=== PATIENT | male | born 1935 | race Hispanic/Latino ===

== ENCOUNTER 2017-05-14 11:10 | Inpatient (IN) | payer MEDICARE, MEDICAID ==
[2017-05-14 11:51] VITALS: BMI 27.1
--- NOTE | 2017-05-14 16:11 | CP.PCM.HP ---
History of Present Illness - History of Present Illness History of Present Illness: 81 yo male with history of AFib, DM2, HTN and CHF was admitted at [facility] because of left sided weakness and left upper extremity tremor. CT scan of the head showed Acute Right Subdural Hematoma with mass effect and midline shift. Neurosurgical consult were made and patient was sent to OR for right frontal craniotomy and evacuation of hematoma. Patient was sent to [facility] Acute Rehab for continuation of therapy. Present on Admission - Present on Admission Any Indicators Present on Admission: No History of DVT/PE: No History of Uncontrolled Diabetes: No Urinary Catheter: No Decubitus Ulcer Present: No Review of Systems - Review of Systems All systems: reviewed and no additional remarkable complaints except (aside from those mentioned above, 12 point system review were negative by me) Past Patient History - Infectious Disease Hx of Infectious Diseases: None - Tetanus Immunizations Tetanus Immunization: Unknown - Past Social History Smoking Status: Never Smoked - CARDIAC Hx Congestive Heart Failure: Yes Hx Hypertension: Yes - PULMONARY Hx Chronic Obstructive Pulmonary Disease (COPD): Yes - NEUROLOGICAL Hx Neurological Disorder: No - HEENT Hx HEENT Problems: Yes Hx Cataracts: Yes Hx Glaucoma: Yes - RENAL Hx Chronic Kidney Disease: No - ENDOCRINE/METABOLIC Hx Diabetes Mellitus Type 1: Yes - HEMATOLOGICAL/ONCOLOGICAL Hx Blood Transfusions: Yes (ffp) Hx Blood Transfusion Reaction: No - INTEGUMENTARY Hx Dermatological Problems: No - MUSCULOSKELETAL/RHEUMATOLOGICAL Hx Falls: No - GASTROINTESTINAL Hx Gastrointestinal Disorders: Yes Hx Gastroesophageal Reflux: Yes - GENITOURINARY/GYNECOLOGICAL Other/Comment: prostate sx - PSYCHIATRIC Hx Substance Use: No - SURGICAL HISTORY Hx Surgeries: Yes - ANESTHESIA Hx Anesthesia Reactions: No Hx Malignant Hyperthermia: No Meds Allergies/Adverse Reactions: Allergies Allergy/AdvReac Type Severity Reaction Status Date / Time No Known Allergies Allergy Verified 05/14/17 14:25 Physical Exam - Constitutional Appears: No Acute Distress, Confused (disoriented to time and place) - Head Exam Head Exam: absent: NORMAL INSPECTION (dressing on right fronto-parietal region post cardiontomy) - Eye Exam Eye Exam: absent: Scleral icterus - ENT Exam ENT Exam: Mucous Membranes Moist - Neck Exam Neck exam: Negative for: Meningismus - Respiratory Exam Respiratory Exam: absent: Rales, Rhonchi, Wheezes, Respiratory Distress - Cardiovascular Exam Cardiovascular Exam: Irregular Rhythm - GI/Abdominal Exam GI & Abdominal Exam: Soft. absent: Tenderness - Rectal Exam Rectal Exam: Deferred - Extremities Exam Extremities exam: Negative for: calf tenderness, pedal edema - Back Exam Back exam: absent: NORMAL INSPECTION (sacral decubitus stage II) - Neurological Exam Neurological exam: Alert (awake but disoriented to time and place, appeared confused and slow to respond) - Psychiatric Exam Psychiatric exam: Flat Affect - Skin Skin Exam: Dry, Intact Assessment & Plan - Assessment and Plan (Free Text) Assessment: 81 yo male with history of AFib, DM2, HTN and CHF was admitted at [facility] because of left sided weakness and left upper extremity tremor. CT scan of the head showed Acute Right Subdural Hematoma with mass effect and midline shift. Neurosurgical consult were made and patient was sent to OR for right frontal craniotomy and evacuation of hematoma. Patient was sent to [facility] Acute Rehab for continuation of therapy. 1. Subdural Hematoma post craniotomy with hematoma evacuation, POD # 3 patient appeared confused and disoriented follow up neuro consult with Dr Jalloh follow up repeat CT scan of head 2. AFib rate controlled continue Digoxin 0.125mg PO daily 3. HTN BP stable continue Metoprolol 50mg PO BID BS elevated 4. DM2 continue Insulin Lispro Mix 75/25 20 unit SC ACHS
--- NOTE | 2017-05-14 16:28 | CT ---
PROCEDURE: CT HEAD WITHOUT CONTRAST. HISTORY: AMS COMPARISON: None available. TECHNIQUE: Axial computed tomography images were obtained through the head/brain without intravenous contrast. Radiation dose: Total exam DLP = 997.05 mGy-cm. This CT exam was performed using one or more of the following dose reduction techniques: Automated exposure control, adjustment of the mA and/or kV according to patient size, and/or use of iterative reconstruction technique. FINDINGS: PA seen to be status post right frontoparietal craniotomy with a mild amount of hemorrhagic products intermixed with CSF and gas at the right cerebral convexity extra-axial spaces relatively diffusely though minimal in overall volume. Mass effect effaces the right cerebral sulci moderately with only a minimal midline shift identified measuring approximately 4 mm. Hemorrhagic products are in varying ages of degradation and some are hyperdense are probably reflects subacute hemorrhagic elements given high oxygen tension within CSF. Trace acute hemorrhage is not excluded in the subdural space nevertheless. No intraparenchymal hematoma identified. Hemorrhagic products and CSF seen inferior to the right frontal lobe could reflect epidural rather than subdural hematoma. Otherwise, diffuse cerebral atrophy and trace chronic microangiopathy are identified with posterior fossa contents unremarkable. PARANASAL SINUSES: Unremarkable as visualized. No significant inflammatory changes. MASTOID AIR CELLS: Unremarkable as visualized. No inflammatory changes. OTHER FINDINGS: Trace gas seen related to the medial wall the right globe which is felt to be related to an ophthalmological band. IMPRESSION: Prior right frontoparietal craniotomy with mild right subdural hematoma and emphysema in appreciated throughout the right cerebral convexity extra-axial spaces. Minimal epidural hematoma may present inferior to the right frontal lobe. Minimal leftward midline shift exerted and moderate effacement of these for right cerebral sulci is identified as the only findings of mass effect. Age related neuro degenerative change are identified mildly. Continued clinical and CT follow-up are advised.
--- NOTE | 2017-05-14 17:38 | PCM.OPOC ---
Physiatry Overall Plan of Care - Overall Plan of Care Estimated Length of Stay in Weeks: 3 Rehab Impairment: Mobility, Gait, Cognition, Speech, Balance, Coordination Etiologic Diagnosis: Cerebrovascular Accident Rehab/Medical Prognosis: Guarded - Anticipated Interventions Physical Therapy:: Yes Occupational Therapy:: Yes Speech Therapy:: Yes Recreational Therapy:: Yes - Therapy Goals Bed Mobility: Contact Guard Ambulation: Minimal Assistance Functional Positional Changes:: Contact Guard - Discharge Plan Identification of Barriers to Discharge: Cognition Discharge Destination: Subacute
--- NOTE | 2017-05-14 17:41 | CP.PCM.CON ---
History of Present Illness - History of Present Illness History of Present Illness: Dr Bills PMR consultation on Wallace Ritter, born 1935 who has been admitted to [facility] for acute inpatient rehabilitation following an acute onset of left HP. Diagnosed with SDH and underwent evacuation. Post op left HP with significant ADL and mobility deficits and cognitive/speech=language deficits as well + duque cath past left TKR Review of Systems - Constitutional Constitutional: absent: Chills, Headache - EENT Eyes: absent: Blind Spots Ears: absent: Ear Pain Nose/Mouth/Throat: absent: Nasal Congestion - Cardiovascular Cardiovascular: absent: Chest Pain - Respiratory Respiratory: absent: Cough, Dyspnea, Hemoptysis - Gastrointestinal Gastrointestinal: absent: Belching - Musculoskeletal Musculoskeletal: absent: Back Pain - Integumentary Integumentary: Other (right sided scalp incision with erin). absent: Bleeding Lesions - Neurological Neurological: Abnormal Gait. absent: Abnormal Movements - Psychiatric Psychiatric: Confusion Past Patient History - Infectious Disease Hx of Infectious Diseases: None - Tetanus Immunizations Tetanus Immunization: Unknown - Past Social History Smoking Status: Never Smoked Alcohol: None Home Situation {Lives}: Alone - CARDIAC Hx Congestive Heart Failure: Yes Hx Hypertension: Yes - PULMONARY Hx Chronic Obstructive Pulmonary Disease (COPD): Yes - NEUROLOGICAL Hx Neurological Disorder: No - HEENT Hx HEENT Problems: Yes Hx Cataracts: Yes Hx Glaucoma: Yes - RENAL Hx Chronic Kidney Disease: No - ENDOCRINE/METABOLIC Hx Diabetes Mellitus Type 1: Yes - HEMATOLOGICAL/ONCOLOGICAL Hx Blood Transfusions: Yes (ffp) Hx Blood Transfusion Reaction: No - INTEGUMENTARY Hx Dermatological Problems: No - MUSCULOSKELETAL/RHEUMATOLOGICAL Hx Falls: No - GASTROINTESTINAL Hx Gastrointestinal Disorders: Yes Hx Gastroesophageal Reflux: Yes - GENITOURINARY/GYNECOLOGICAL Other/Comment: prostate sx - PSYCHIATRIC Hx Substance Use: No - SURGICAL HISTORY Hx Surgeries: Yes - ANESTHESIA Hx Anesthesia Reactions: No Hx Malignant Hyperthermia: No Meds Allergies/Adverse Reactions: Allergies Allergy/AdvReac Type Severity Reaction Status Date / Time No Known Allergies Allergy Verified 05/14/17 14:25 - Medications Medications: Current Medications Acetaminophen (Tylenol 325mg Tab) 650 mg PO Q4 PRN PRN Reason: Pain, Mild (1-3) Codeine Sulfate (Codeine) 30 mg PO Q4 [facility] Digoxin (Lanoxin) 0.125 mg PO 1400 [facility] Furosemide (Lasix) 40 mg PO DAILY [facility] Insulin Human Lispro (Humalog) 0 units SC ACHS [facility] PRN Reason: Protocol Metoprolol Tartrate (Lopressor) 50 mg PO BID [facility] Last Admin: 05/14/17 17:28 Dose: Not Given Oxybutynin Chloride (Ditropan Tab) 5 mg PO Q8 [facility] Pantoprazole Sodium (Protonix Ec Tab) 40 mg PO 0600 [facility] Pregabalin (Lyrica) 75 mg PO DAILY [facility] Tamsulosin HCl (Flomax) 0.4 mg PO DAILY [facility] Tramadol HCl (Ultram) 50 mg PO BID PRN PRN Reason: Pain, moderate (4-7) Physical Exam - Constitutional Appears: Non-toxic, No Acute Distress - Head Exam Head Exam: absent: ATRAUMATIC (right scalp incision with erin) - Eye Exam Eye Exam: EOMI - ENT Exam ENT Exam: Mucous Membranes Moist - Respiratory Exam Respiratory Exam: NORMAL BREATHING PATTERN - Cardiovascular Exam Cardiovascular Exam: REGULAR RHYTHM - GI/Abdominal Exam GI & Abdominal Exam: Distended. absent: Firm - Extremities Exam Extremities exam: Negative for: calf tenderness, joint swelling, pedal edema - Neurological Exam Neurological exam: Alert - Psychiatric Exam Psychiatric exam: Flat Affect - Skin Skin Exam: Warm (has a stage II sacral ulcer, butterflied 2x2 with some erythema and mild maceration) Results - Vital Signs Recent Vital Signs: Last Vital Signs Temp Pulse 70 05/14/17 14:40 Resp 20 05/14/17 14:40 BP 98/64 L 05/14/17 17:28 Pulse Ox 98 05/14/17 14:40 - Labs Labs: Laboratory Results - last 24 hr 05/14/17 16:36 POC Glucose (mg/dL) 166 H Assessment & Plan - Assessment and Plan (Free Text) Assessment: PT/OT to continue to help increase functional independence Team conference for d/c planning Pain: controlled Vascular: no evidence of DVT GI: No evidence of constipation or diarrhea Skin: Proshield to the sacral ulcer Patient is an excellent acute rehabilitation candidate and will have focused speech, PT, OT and recreational therapy to help facilitate a safe and appropriate d/c plan impairment code 01.1
[2017-05-14] MEDS: Insulin Lispro (humaLOG) 100 Units/ml Inj SC SCH ×2 (18:03→21:17)
[2017-05-14 18:24] LABS: ALB/GLOB RATIO 1.1 (1.0-2.1); ALBUMIN 3.9 g/dL (3.5-5.0); CALCIUM 9.5 mg/dL (8.4-10.2)
[2017-05-14] MEDS: Proshield Plus GEL TOP SCH (21:20)
[2017-05-15] MEDS: Proshield Plus GEL TOP SCH ×3 (06:07→21:29)
[2017-05-15] MEDS: Pantoprazole 40 mg EC Tab PO SCH (06:08)
[2017-05-15] MEDS: Insulin Lispro (humaLOG) 100 Units/ml Inj SC SCH ×4 (06:43→21:32)
[2017-05-15] MEDS: Digoxin 250 mcg (0.25 mg) Tab PO SCH (14:44)
[2017-05-15] MEDS ORDERED: Sodium Chloride 0.9% 1,000 ML IV SCH (18:00)
[2017-05-16] MEDS: Proshield Plus GEL TOP SCH (05:55)
[2017-05-16] MEDS: Pantoprazole 40 mg EC Tab PO SCH (05:55)
[2017-05-16] MEDS: Insulin Lispro (humaLOG) 100 Units/ml Inj SC SCH (06:59)
[2017-05-16] MEDS ORDERED: levETIRAcetam 1,000 MG in Sodium Chloride 0.9% 100 ML IVPB ONE (08:11)
--- NOTE | 2017-05-16 08:48 | CP.PCM.CON ---
History of Present Illness - History of Present Illness History of Present Illness: Mr. Ritter is a 81 yo male with history of AFib, DM2, HTN and CHF was admitted at [facility] because of left sided weakness and left upper extremity tremor. CT scan of the head showed Acute Right Subdural Hematoma with mass effect and midline shift. Neurosurgical consult were made and patient was sent to OR for right frontal craniotomy and evacuation of hematoma. He was send to [facility] acute rehab for continuous therapy. Upon arrival in the [facility] rehab, he had an episode of confusion and was not able to follow any commands. CT scan of the head did not show any new acute findings. CMP showed elevated BUN and creatinine level which IVF was given at nighttime and encourage increase PO intake of fluids. Yesterday was uneventful for the patient. This morning at around 7:40 am, the RN heard him sounding like he was choking, found patient to be having left arm tonic-clonic movement and left eye twitching lasting about 10 seconds. No loss of consciousness noted. Vital signs at that time was Bp- 124 /74, HR-87, SPO2-97%at room air, temp. 97.9.Blood sugar was 303 mg/dl. ICE [employer]ER was called. Pt. complained of left arm heaviness. Dr. Haley ordered repeat CT Scan of head. At present, his v/s 127/75, HR-90, SPO2-99% at room air. He denies any headache, dizziness, lightheadedness, blurred vision, diplopia. He was able to describe his left side of his twitching including his left eye. He is able to answer questions appropriately and follow commands. He is able to feed himself with minimal assistance. Review of Systems - Review of Systems All systems: reviewed and no additional remarkable complaints except Past Patient History - Infectious Disease Hx of Infectious Diseases: None - Tetanus Immunizations Tetanus Immunization: Unknown - Past Social History Smoking Status: Never Smoked Alcohol: None Home Situation {Lives}: Alone - CARDIAC Hx Congestive Heart Failure: Yes Hx Hypertension: Yes - PULMONARY Hx Chronic Obstructive Pulmonary Disease (COPD): Yes - NEUROLOGICAL Hx Neurological Disorder: No - HEENT Hx HEENT Problems: Yes Hx Cataracts: Yes Hx Glaucoma: Yes - RENAL Hx Chronic Kidney Disease: No - ENDOCRINE/METABOLIC Hx Diabetes Mellitus Type 1: Yes - HEMATOLOGICAL/ONCOLOGICAL Hx Blood Transfusions: Yes (ffp) Hx Blood Transfusion Reaction: No - INTEGUMENTARY Hx Dermatological Problems: No - MUSCULOSKELETAL/RHEUMATOLOGICAL Hx Falls: No - GASTROINTESTINAL Hx Gastrointestinal Disorders: Yes Hx Gastroesophageal Reflux: Yes - GENITOURINARY/GYNECOLOGICAL Other/Comment: prostate sx - PSYCHIATRIC Hx Substance Use: No - SURGICAL HISTORY Hx Surgeries: Yes - ANESTHESIA Hx Anesthesia Reactions: No Hx Malignant Hyperthermia: No Meds Allergies/Adverse Reactions: Allergies Allergy/AdvReac Type Severity Reaction Status Date / Time No Known Allergies Allergy Verified 05/14/17 14:25 - Medications Medications: Current Medications Acetaminophen (Tylenol 325mg Tab) 650 mg PO Q4 PRN PRN Reason: Pain, Mild (1-3) Digoxin (Lanoxin) 0.125 mg PO 1400 [facility] Last Admin: 05/15/17 14:44 Dose: 0.125 mg Dimethicone (Proshield Plus Skin Protectant) 1 applic TOP Q8 [facility] Last Admin: 05/16/17 05:55 Dose: 1 applic Furosemide (Lasix) 40 mg PO DAILY [facility] Insulin Human Lispro (Humalog) 0 units SC ACHS [facility] PRN Reason: Protocol Last Admin: 05/16/17 06:59 Dose: 4 units Levetiracetam (Keppra) 500 mg PO BID [facility] Levetiracetam (Keppra) 1,000 mg PO ONCE ONE Stop: 05/16/17 08:45 Metoprolol Tartrate (Lopressor) 50 mg PO BID@0900,2100 [facility] Last Admin: 05/16/17 08:39 Dose: 50 mg Multivitamins/Vitamin C (Poly Vi Fidelina Liq) 1 ml PO DAILY [facility] Oxybutynin Chloride (Ditropan Tab) 5 mg PO Q8 [facility] Last Admin: 05/16/17 05:55 Dose: 5 mg Pantoprazole Sodium (Protonix Ec Tab) 40 mg PO 0600 [facility] Last Admin: 05/16/17 05:55 Dose: 40 mg Pregabalin (Lyrica) 75 mg PO DAILY [facility] Last Admin: 05/16/17 08:43 Dose: 75 mg Tamsulosin HCl (Flomax) 0.4 mg PO HS [facility] Last Admin: 05/15/17 21:28 Dose: 0.4 mg Tramadol HCl (Ultram) 50 mg PO BID PRN PRN Reason: Pain scale 4-10 Physical Exam - Constitutional Appears: No Acute Distress - Head Exam Head Exam: NORMAL INSPECTION - Eye Exam Pupil Exam: PERRL - ENT Exam ENT Exam: Mucous Membranes Moist, Normal Exam - Neck Exam Neck exam: Positive for: Normal Inspection - Respiratory Exam Respiratory Exam: Clear to Auscultation Bilateral, NORMAL BREATHING PATTERN - Cardiovascular Exam Cardiovascular Exam: +S1, +S2 - GI/Abdominal Exam GI & Abdominal Exam: Normal Bowel Sounds, Soft. absent: Tenderness - Extremities Exam Extremities exam: Positive for: normal inspection - Neurological Exam Neurological exam: Alert, CN II-XII Intact, Oriented x3 - Expanded Neurological Exam Expanded Patient oriented to: person, place, time Cranial nerves: EOM's Intact: Normal, Facial Palsey w/Forehead Movement: Normal , Facial Palsey w/o Forehead Movement: Normal, Facial Sensation: Normal, Gag Reflex: Normal, Nystagmus: Normal, Tongue Deviation: Normal Ataxia: No Cerebellar Function: Finger to Nose: Abnormal Left, Abnormal Right (patient claims of arms feeling very heavy), Heel to Herrera: Abnormal Left Upper motor neuron: Pronator Drift: Abnormal Left, Sensory Extinction: Abnormal Left Sensory exam: Lower Extremity 2 Point Discrimination: Abnormal Left, Lower Extremity Light Touch: Abnormal Left, Lower Extremity Pin Prick: Abnormal Left, Lower Extremity Temperature: Abnormal Left, Upper Extremity 2 Point Discrimination: Abnormal Left, Upper Extremity Light Touch: Abnormal Left, Upper Extremity Pin Prick: Abnormal Left, Upper Extremity Temperature: Abnormal Left Neuro motor strength exam: Left Upper Extremity: 3, Right Upper Extremity: 4, Left Lower Extremity: 2/1, Right Lower Extremity: 4 Results - Vital Signs Recent Vital Signs: Last Vital Signs Temp 97.9 F 05/16/17 07:40 Pulse 90 05/16/17 08:39 Resp 20 05/16/17 07:48 BP 127/75 05/16/17 08:39 Pulse Ox 99 05/16/17 07:48 - Labs Result Diagrams: 05/14/17 17:45 Labs: Laboratory Results - last 24 hr 05/15/17 05/15/17 05/15/17 11:34 16:52 21:32 POC Glucose (mg/dL) 378 H 268 H 338 H 05/16/17 06:55 POC Glucose (mg/dL) 303 H Assessment & Plan (1) Subdural hematoma Assessment and Plan: 81 yo male with history of AFib, DM2, HTN and CHF was admitted at [facility] because of left sided weakness and left upper extremity tremor Case discussed with Dr. Sarmiento 1. acute rehab. 2. CT scan of head without contrast 3. PT, Ot eval and treat 4. Blood pressure and glycemic control Thank you Status: Acute (2) Seizures Assessment and Plan: 81 yo male with history of AFib, DM2, HTN and CHF was admitted at [facility] because of left sided weakness and left upper extremity tremor, with a new onset of seizures Case discussed with Dr. Sarmiento, recommend the following 1. CT scan of the head stat. 2. MRI of the brain without contrast 3. EEG to evaluate seizure 4. Keppra 1000 mg PO loading dose and 500 mg PO BID. 5. Ativan 2 mg IV Q 6 PRN for seizure activity Thank you Status: Acute
--- NOTE | 2017-05-16 08:52 | PCM.RRT ---
WIRELESS OPERATOR Nurse Assessment - Situation Location: rehab Room Number: 622 WIRELESS OPERATOR Reason for Call: Looks Sicker WIRELESS OPERATOR Called By: RN - IV IV Inserted during WIRELESS OPERATOR?: No - Respiratory Oxygen Delivery Method: Room Air Received Nebulizer Treatments: No Was the Patient Ventilated with Bag/Mask 100% O2?: No Secretions Suctioned?: No Was the Patient Intubated?: No Was the Patient Placed on a Ventilator?: No - Diagnostic Test Ordered EKG: No Chest X-Ray: No CT Scan: No CPR started during WIRELESS OPERATOR?: No - Vital Signs Vital Signs: Rapid Response Vital Sign Blood Pressure 124/74 Pulse Rate 74 Respiratory Rate 22 Temperature 97.5 F Oxygen Saturation 98 - Time WIRELESS OPERATOR Ended Time WIRELESS OPERATOR Ended: 07:45 - Vital Signs at end of WIRELESS OPERATOR Vital Signs at end of WIRELESS OPERATOR: Rapid Response End Vital Sign Blood Pressure 127/75 Pulse Rate 81 Respiratory Rate 20 Temperature 97.5 F O2 Sat by Pulse Oximetry 98 - Recommendations WIRELESS OPERATOR Level of Care Recommendations: Remain in current setting I.Reason for WIRELESS OPERATOR - A) Acute Change in Patient: Subjective: 81 yo M s/p evacuation of subdural hematoma had WIRELESS OPERATOR called due to witnessed focal seizure while in rehab. RN witnessed pt have tonic clonic seizure activity of left upper extremity and left eyelid. Activity lasted for less than 10 seconds and pt did not lose consciousness. Vitals at beginning of WIRELESS OPERATOR: BP 124/74, HR 87 SpO2 99 On arrival, pt was not having this activity anymore. Was alert and oriented to person, year, and knew he was in a hospital. EOMI. Stated that his left arm felt heavy- but after a few minutes was able to move it with more ease than at beginning of WIRELESS OPERATOR. Of note, mild left facial droop noted, but as per floor staff/pt's RN this is not a new finding, and is pt's baseline. Vitals at end of WIRELESS OPERATOR BP 125/75 HR 90 SpO2 99 Assessment: 81 yo M, s/p focal seizure. Plan: Non contrast CT Contact pt's neurologist- Dr. Jalloh/Dr. Sarmiento Patient seen and discussed with hospitalist Dr. Haley, who was present for the WIRELESS OPERATOR.
[2017-05-16] MEDS ORDERED: Poly vi sol LIQUID PO SCH (09:00)
--- NOTE | 2017-05-16 11:20 | CT ---
PROCEDURE: CT scan of the head without contrast HISTORY: r/o seizure Subdural hematoma with recent craniotomy COMPARISON: 05/14/2017. TECHNIQUE: CT scan of the head was performed without the use of intravenous contrast. Coronal and sagittal reformatted images were performed. Lower dose CT techniques including iterative reconstruction were performed. Total exam DLP = 975 mGy-cm. FINDINGS: There is once again evidence of prior right right frontoparietal craniotomy. No catheter is appreciated. Overlying erin are seen in the subcutaneous soft tissues with some mild overlying subcutaneous edema identified. Persistent areas of right frontal and frontal convexity extra-axial air are noted. There is a [id number] sized right subdural hematoma identified as seen on prior study. There is some mild linear areas of residual high density in the subdural collection consistent with residual blood products. Some of these appear to be layering posteriorly. This is causing localized mass effect as well as mild [id number] midline shift. The overall thickness of the subdural hematoma is mildly increased measuring up to 12 millimeters. There is additionally some confluent low density seen along the inferior right frontal lobe region. There also appears to be some low density in the left frontoparietal convexity not as well appreciated on prior study. No new intracranial hemorrhage or intraventricular hemorrhage is noted. Bony structures are stable. IMPRESSION: Status post right frontoparietal craniotomy. There appears to be the suggestion of some mild increase in thickness of the right frontoparietal subdural hematoma. This would include some mild areas of linear increased blood products from recent subdural hematoma. Persistent underlying cortical effacement and [id number] midline shift remain. This case was placed into the PA review folder and critical finding list.
--- NOTE | 2017-05-16 12:23 | CP.PCM.DIS ---
Provider - Provider Date of Admission: 05/14/17 14:25 Attending physician: Nabil Kwan MD Time Spent in preparation of Discharge (in minutes): 30 Diagnosis - Discharge Diagnosis (1) Seizures Status: Acute Hospital Course - Lab Results Lab Results: Most Recent Lab Values Sodium 136 mmol/l (132-148) 05/14/17 17:45 Potassium 4.2 MMOL/L (3.6-5.0) 05/14/17 17:45 Chloride 90 mmol/L (98-107) L 05/14/17 17:45 Carbon Dioxide 31 mmol/L (22-30) H 05/14/17 17:45 Anion Gap 19 (10-20) 05/14/17 17:45 BUN 41 mg/dl (9-20) H 05/14/17 17:45 Creatinine 2.1 mg/dl (0.8-1.5) H 05/14/17 17:45 Est GFR ( Amer) 37 05/14/17 17:45 Est GFR (Non-Af Amer) 30 05/14/17 17:45 POC Glucose (mg/dL) 303 mg/dL (65-110) H 05/16/17 06:55 Random Glucose 147 mg/dL (75-110) H 05/14/17 17:45 Calcium 9.5 mg/dL (8.4-10.2) 05/14/17 17:45 Total Bilirubin 0.8 mg/dl (0.2-1.3) 05/14/17 17:45 AST 62 U/L (17-59) H D 05/14/17 17:45 ALT 47 U/L (21-72) 05/14/17 17:45 Alkaline Phosphatase 108 U/L (38-126) 05/14/17 17:45 Total Protein 7.4 G/DL (6.3-8.2) 05/14/17 17:45 Albumin 3.9 g/dL (3.5-5.0) 05/14/17 17:45 Globulin 3.5 gm/dL (2.2-3.9) 05/14/17 17:45 Albumin/Globulin Ratio 1.1 (1.0-2.1) 05/14/17 17:45 - Hospital Course Hospital Course: 81 yo male with history of AFib, DM2, HTN and CHF was admitted at [facility] because of left sided weakness and left upper extremity tremor. CT scan of the head showed Acute Right Subdural Hematoma with mass effect and midline shift. Neurosurgical consult were made and patient was sent to OR for right frontal craniotomy and evacuation of hematoma. Patient was sent to [facility] Acute Rehab for continuation of therapy. While in acute rehab, patient had 2 episodes of focal seizures today. Patient was evaluated by Neuro team, and subsequently transferred to ICU for IV Keppra and close monitoring. Patient to be transferred to ED at this time. Discharge Exam - Head Exam Head Exam: NORMAL INSPECTION Additional comments: Vitals Reviewed GEN: WDWN, ALERT HEENT: NCAT, PERRL, EOMI HEART: RRR, +S1S2, NO MRG LUNG: CTAB, NO WRR ABD: SOFT, NT, ND, NO HSM, NO MASSES EXT: NORMAL PEDAL PULSES, GOOD CAPILLARY REFILL NEURO: awake, alert SKIN: WARM, DRY PSYCH: NORMAL MOOD, NORMAL AFFECT Discharge Plan - Follow Up Plan Condition: GOOD Disposition: Trans to Other Acute Care Hosp
[2017-05-17] MEDS ORDERED: Multivitamin With Minerals Tab PO SCH (09:00)
[2017-05-17] MEDS: Insulin Lispro (humaLOG) 100 Units/ml Inj SC SCH ×4 (15:09→21:43)
[2017-05-17] MEDS: Proshield Plus GEL TOP SCH ×3 (15:10→21:38)
[2017-05-17] MEDS: Digoxin 250 mcg (0.25 mg) Tab PO SCH ×2 (15:10→15:11)
[2017-05-17] MEDS: Pantoprazole 40 mg EC Tab PO SCH (15:11)
--- NOTE | 2017-05-17 18:27 | CP.PCM.PN ---
Subjective - Date & Time of Evaluation Date of Evaluation: 05/17/17 Time of Evaluation: 18:26 - Subjective Subjective: Patient seen in the room aware that had seizure activity stabilized now feels tired but able to converse no leg swelling will see how he does in therapy Objective - Vital Signs/Intake and Output Vital Signs (last 24 hours): Temp Pulse Resp BP Pulse Ox 96.3 F L 78 20 104/60 99 05/17/17 14:49 05/17/17 14:49 05/17/17 14:49 05/17/17 14:49 05/17/17 14:49 - Medications Medications: Current Medications Codeine Sulfate (Codeine) 30 mg PO Q4 [facility] Digoxin (Digoxin) 0.25 mg PO DAILY@1400 [facility] Dimethicone (Proshield Plus Skin Protectant) 1 applic TOP Q8 [facility] Last Admin: 05/17/17 15:11 Dose: Not Given Furosemide (Lasix) 40 mg PO DAILY [facility] Insulin Human Lispro (Humalog) 0 units SC ACHS [facility] PRN Reason: Protocol Last Admin: 05/17/17 16:54 Dose: 6 units Levetiracetam (Keppra) 500 mg PO Q12 [facility] Metoprolol Tartrate (Lopressor) 50 mg PO Q12 [facility] Oxybutynin Chloride (Ditropan Tab) 5 mg PO Q8 [facility] Last Admin: 05/17/17 15:12 Dose: Not Given Pregabalin (Lyrica) 75 mg PO DAILY [facility] Last Admin: 05/17/17 15:12 Dose: Not Given Tamsulosin HCl (Flomax) 0.4 mg PO HS [facility] Last Admin: 05/17/17 15:09 Dose: Not Given Tramadol HCl (Ultram) 50 mg PO BID PRN PRN Reason: Pain scale 4-10 - Labs Labs: 05/14/17 17:45
[2017-05-18] MEDS: Proshield Plus GEL TOP SCH ×3 (06:15→21:48)
[2017-05-18] MEDS: Insulin Lispro (humaLOG) 100 Units/ml Inj SC SCH ×4 (06:39→21:37)
--- NOTE | 2017-05-18 13:24 | PSY.TMCNF ---
Nursing - Vital Signs Vital Signs (Last 8 hours): Vital Signs 05/18/17 05/18/17 05/18/17 08:00 09:03 10:00 Temperature 97.2 F L Pulse Rate 108 H 100 H 100 H Respiratory 18 Rate Blood Pressure 94/55 L 102/60 102/60 O2 Sat by Pulse 97 Oximetry Pain: 0 - Medications/Other Issues Comment: Pt is at high nutritional risk. Goals: 1: Consume >75% of meals. 2: Maintain weight within 2-3 lbs. of current body weight. Follow-up assessment due by 05/23/2017. - Bladder Management Bladder Pattern: Retention Voiding Method: Indwelling Catheter - Patient/Family Teaching Comments: N/A - Goals/Time Frame Comments: Pt was seen awake and alert following PT session. Pt agreeable to evaluation. Pt was able to identify the month and year following verbal cues. Pt was able to identify minimal leisure interests and required verbal cues for choices of leisure options. Pt's responses may not be accurate 2' pt repeating responses for previous questions or did not respond. Pt reported he lives in [place] and presents with L UE and LE weakness. Pt reported no headache during time of session. Pt participated in connect four task and modified courtnye card task. Pt required max verbal cues for direction following, command following, error recognition, and attention to task. Pt returned to room. Physical Therapy - Bed Mobility Bed Mobility: Contact Guard, Minimal Assistance - Transfers Wheelchair to Mat: Contact Guard, Minimal Assistance Sit to Stand: Verbal Cues, Contact Guard, Minimal Assistance - Ambulation Level of Assistance: Minimal Assistance, Moderate Assistance Distance (ft.): 65 Assistive Devices: Rolling Walker Orthoses: n/a Comment: RW, VCs, forwARD FLEXION, impaired upright posture, impaired safety, rapid step with RLE with impaired LLE weight bearing; impaired tolerance to task with some SOB. -impaired safety with wide base of support and limited flexion during swing on RLE or LLE; limited knee motion noted on LLE during gait. -continued VCs for hip extension and upright gaze - Stair Negotiation Stairs: Level of Assistance: Not Tested - Standing Balance Static Stand: Minimal Assistance Dynamic Stand: Moderate Assistance - Pain Pain (assessed during therapy session): 5 Management Techniques: Medication Comment: LLE at times - Insight/Carryover Insight/Carryover: Fair - Patient/Family Education Comment: -safety, therapy schedule, therapy goals, POC, use of call higgins, WC mobility - Assessment/Plan Assessment: Wallace Ritter presents with moderate cognitive-linguistic deficits characterized by impaired short-term memory, problem solving and safety , thouhgt organization, word retrieval, and intermittently impaired attention with delayed responses overall. Pt would benefit from ST 3-5x/week for improved cognition. - Goals Timeframe: 2 weeks Goals: Min A LB self care. mod I transfers, mobility. independent ub self care. mod I toileting tasks - Provider License Number: [id number] Occupational Therapy - Arousal/Attention/Orientation Patient Orientation: Person - ADL/IADL Self Feeding: Set-up Help Grooming: Verbal Cues, Set-up Help Dressing-Upper Extremity: Moderate Assistance Dressing-Lower Extremity: Maximum Assistance Comment: +duque catheter - Sitting Balance Static Sitting: Supervision Dynamic Sitting: Contact Guard Assist - Transfers Wheelchair to Bed Transfers: Minimal Assistance Toilet Transfers: Moderate Assistance Comment: tub transfer tba - Upper Extremity Status Right Upper Extremity Comment: AROM R shoulder flexion approx 90 degrees Left Upper Extremity Comment: pain with movement L shoulder. AROM 60 degrees - Pain Pain (assessed during therapy session): 5 Alleviating Techniques: Medication Comment: LLE at times - Insight/Carryover Insight/Carryover: Fair - Patient/Family Education Comment: -safety, therapy schedule, therapy goals, POC, use of call higgins, WC mobility - Assessment/Plan Assessment: Wallace Ritter presents with moderate cognitive-linguistic deficits characterized by impaired short-term memory, problem solving and safety , thouhgt organization, word retrieval, and intermittently impaired attention with delayed responses overall. Pt would benefit from ST 3-5x/week for improved cognition. - Goals Timeframe: 2 weeks Goals: Min A LB self care. mod I transfers, mobility. independent ub self care. mod I toileting tasks - Provider Therapist: CELESTINO Candelario/Mansi License Number: [id number] Speech Therapy - Consult Information Patient on Program: Yes Medical Diagnosis: R subdural hematoma s/p R frontal craniotomy and evacuation Treatment Diagnosis: moderate cognitive deficits - Assessment Problem Solving Impairment: Moderate Memory Impairment: Moderate - Plan Assessment: Wallace Ritter presents with moderate cognitive-linguistic deficits characterized by impaired short-term memory, problem solving and safety , thouhgt organization, word retrieval, and intermittently impaired attention with delayed responses overall. Pt would benefit from ST 3-5x/week for improved cognition. Plan: Continue Speech/Language Therapy Frequency: 3-5 times per week Duration: 1 week Goals/Timeframe: Please see IE completed 05/18/17 for goals/POC Recommendations: ST 3-5x/week for improved cognition - Provider Therapist: Tana Adhikari License Number: [id number] Recreational Therapy - Participation Participation: Participates in Individual and/or Group Sessions - Attendance Attendance: 3-5 times per week - Activities Leisure Activities: Cards and Games - Socialization Level of Socialization: Initiates/interacts freely with care givers and peer - Assessment Assessment/Plan: Wallace Ritter presents with moderate cognitive- linguistic deficits characterized by impaired short-term memory, problem solving and safety, thouhgt organization, word retrieval, and intermittently impaired attention with delayed responses overall. Pt would benefit from ST 3-5x /week for improved cognition. - Provider Therapist: Emy Cormier, [facility] [employer] [id number] Nutrition - Current Diet Current Diet/ Supplement/ Feedings: Heart healthy, moderate consistent CHO, soft diet - Appetite Percent Meal Consumed: 75-100% - Comments Comments: N/A - Assessment/Goals/Time Frame Assessment/Goals/Time Frame: Pt is at high nutritional risk. Goals: 1: Consume >75% of meals. 2: Maintain weight within 2-3 lbs. of current body weight. Follow-up assessment due by 05/23/2017. - Provider Provider: Roselyn Seay MS, RD Case Management - Discharge Plan Discharge Plan: Subacute care Rehabilitation Plan - Treatment Plan Treatment Plan: Physical Therapy, Occupational Therapy, Speech, Dietary, Wound Care, Patient/Family Education - Discharge Plan Discharge to: Subacute
--- NOTE | 2017-05-18 13:44 | CP.PCM.PN ---
Subjective - Date & Time of Evaluation Date of Evaluation: 05/18/17 Time of Evaluation: 13:42 - Subjective Subjective: Patient seen in the room he was appropriately interactive has good insight NAD discussed discharge plans and he is aware of his limitations and need for further therapy and that he cannot go home denies YOU or dizziness had a reduced BP and urinary retention duque placed Objective - Vital Signs/Intake and Output Vital Signs (last 24 hours): Temp Pulse Resp BP Pulse Ox 97.2 F L 100 H 18 103/66 97 05/18/17 08:00 05/18/17 10:00 05/18/17 08:00 05/18/17 13:23 05/18/17 08:00 Intake and Output: 05/18/17 05/18/17 06:59 18:59 Intake Total 750 Output Total 0 Balance -1300 - Medications Medications: Current Medications Codeine Sulfate (Codeine) 30 mg PO Q4 [facility] Last Admin: 05/18/17 08:00 Dose: Not Given Digoxin (Lanoxin) 0.25 mg PO DAILY@1400 [facility] Dimethicone (Proshield Plus Skin Protectant) 1 applic TOP Q8 [facility] Last Admin: 05/18/17 13:22 Dose: 1 applic Furosemide (Lasix) 40 mg PO DAILY [facility] Last Admin: 05/18/17 13:23 Dose: 40 mg Insulin Human Lispro (Humalog) 0 units SC [facility] PRN Reason: Protocol Last Admin: 05/18/17 12:22 Dose: 4 units Insulin Lispro Protam/Lispro Human (Humalog Mix 75/25) 15 units SC [facility] Levetiracetam (Keppra) 500 mg PO Q12 [facility] Last Admin: 05/18/17 08:44 Dose: 500 mg Metoprolol Tartrate (Lopressor) 50 mg PO Q12 [facility] Last Admin: 05/18/17 09:03 Dose: 50 mg Oxybutynin Chloride (Ditropan Tab) 5 mg PO Q8 [facility] Last Admin: 05/18/17 06:15 Dose: 5 mg Pregabalin (Lyrica) 75 mg PO DAILY [facility] Last Admin: 05/17/17 15:12 Dose: Not Given Tamsulosin HCl (Flomax) 0.4 mg PO HS [facility] Last Admin: 05/17/17 21:13 Dose: Not Given Tramadol HCl (Ultram) 50 mg PO BID PRN PRN Reason: Pain scale 4-10 - Labs Labs: 05/14/17 17:45
[2017-05-18] MEDS: Digoxin 250 mcg (0.25 mg) Tab PO SCH (15:12)
[2017-05-18] MEDS: Insulin Lispro Mix 75/25 100 units/ml (HumaLog) 10ml SC SCH ×2 (19:00→21:36)
[2017-05-19] MEDS: Proshield Plus GEL TOP SCH ×3 (06:18→21:20)
[2017-05-19] MEDS: Insulin Lispro (humaLOG) 100 Units/ml Inj SC SCH ×4 (07:39→21:01)
[2017-05-19] MEDS: Insulin Lispro Mix 75/25 100 units/ml (HumaLog) 10ml SC SCH ×2 (08:05→12:35)
[2017-05-19] MEDS: Digoxin 250 mcg (0.25 mg) Tab PO SCH (13:19)
[2017-05-19] MEDS ORDERED: Insulin Lispro Mix 75/25 100 units/ml (HumaLog) 10ml SC SCH ×2 (13:55→16:30)
--- NOTE | 2017-05-19 13:59 | CP.PCM.PN ---
Subjective - Date & Time of Evaluation Date of Evaluation: 05/19/17 Time of Evaluation: 13:00 - Subjective Subjective: Patient seen and examined. Still confused but able to follow direction. Objective - Vital Signs/Intake and Output Vital Signs (last 24 hours): Temp Pulse Resp BP Pulse Ox 97.3 F L 103 H 19 106/60 96 05/19/17 08:29 05/19/17 12:48 05/19/17 08:29 05/19/17 13:20 05/19/17 08:29 Intake and Output: 05/19/17 05/19/17 06:59 18:59 Intake Total 450 Output Total 1400 Balance -950 - Medications Medications: Current Medications Codeine Sulfate (Codeine) 30 mg PO Q4H PRN PRN Reason: Pain, severe (8-10) Digoxin (Lanoxin) 0.25 mg PO DAILY@1400 [facility] Last Admin: 05/19/17 13:19 Dose: 0.25 mg Dimethicone (Proshield Plus Skin Protectant) 1 applic TOP Q8 [facility] Last Admin: 05/19/17 13:21 Dose: 1 applic Furosemide (Lasix) 20 mg PO DAILY [facility] Insulin Human Lispro (Humalog) 0 units SC [facility] PRN Reason: Protocol Last Admin: 05/19/17 12:34 Dose: 5 units Insulin Lispro Protam/Lispro Human (Humalog Mix 75/25) 20 units SC [facility] Levetiracetam (Keppra) 750 mg PO BID [facility] Last Admin: 05/19/17 09:14 Dose: 750 mg Metoprolol Tartrate (Lopressor) 50 mg PO Q12 [facility] Last Admin: 05/19/17 08:43 Dose: Not Given Pregabalin (Lyrica) 75 mg PO 2200 [facility] Last Admin: 05/18/17 21:44 Dose: 75 mg Tamsulosin HCl (Flomax) 0.4 mg PO HS [facility] Last Admin: 05/18/17 21:35 Dose: 0.4 mg Tramadol HCl (Ultram) 50 mg PO BID PRN PRN Reason: Pain, moderate (4-7) - Labs Labs: 05/14/17 17:45 - Constitutional Appears: No Acute Distress, Confused - Head Exam Head Exam: ATRAUMATIC - Eye Exam Eye Exam: absent: Scleral icterus - ENT Exam ENT Exam: Mucous Membranes Moist - Neck Exam Neck Exam: absent: Meningismus - Respiratory Exam Respiratory Exam: absent: Rales, Rhonchi, Wheezes, Respiratory Distress - Cardiovascular Exam Cardiovascular Exam: REGULAR RHYTHM, +S1, +S2 - GI/Abdominal Exam GI & Abdominal Exam: Soft. absent: Tenderness - Rectal Exam Rectal Exam: Deferred - Extremities Exam Extremities Exam: absent: Pedal Edema - Neurological Exam Neurological Exam: Altered - Psychiatric Exam Psychiatric exam: Flat Affect - Skin Skin Exam: Dry, Intact Assessment and Plan - Assessment and Plan (Free Text) Assessment: 81 yo male with history of AFib, DM2 and HTN was admitted at [facility] because of left sided weakness and left upper extremity tremor. CT scan of the head showed Acute Right Subdural Hematoma with mass effect and midline shift. Neurosurgical consult were made and patient was sent to OR for right frontal craniotomy and evacuation of hematoma. Patient was sent to [facility] Acute [facility]hab for continuation of therapy. 1. Subdural Hematoma post craniotomy with hematoma evacuation still confused and disoriented (not sure about baseline mental status) follow up neuro consult with Dr Jalloh follow up repeat CT scan of head 2. AFib rate controlled continue Digoxin and Metoprolol 3. HTN BP stable but on the low side continue Metoprolol 50mg PO BID history reviewed and no indication patient had CHF in the past. Aside from cardiomegaly there was no sign of pulmonary congestion in the past and ECHO consistently has normal LV function and EF. DC Lasix 4. DM2 BS uncontrolled increase Insulin Lispro Mix 75/25 20 unit SC ACHS HgA1C: 9.9 BMP in am endocrinology consult with Dr Peterson 5. BPH continue Flomax 0.4mg PO daily [facility] Oxybutinin
--- NOTE | 2017-05-19 16:41 | CP.PCM.PN ---
Subjective - Date & Time of Evaluation Date of Evaluation: 05/19/17 Time of Evaluation: 16:39 - Subjective Subjective: Patient seen in the room more lethargic today PT also noticed this as well Will have neurology follow up he had been much more of a conversationalist yesterday not able to follow more than a couple of sentences Possible CT or other imaging Objective - Vital Signs/Intake and Output Vital Signs (last 24 hours): Temp Pulse Resp BP Pulse Ox 97.3 F L 98 H 19 90/54 L 96 05/19/17 08:29 05/19/17 16:07 05/19/17 08:29 05/19/17 16:07 05/19/17 08:29 Intake and Output: 05/19/17 05/19/17 06:59 18:59 Intake Total 450 Output Total 1400 Balance -950 - Medications Medications: Current Medications Codeine Sulfate (Codeine) 30 mg PO Q4H PRN PRN Reason: Pain, severe (8-10) Digoxin (Lanoxin) 0.25 mg PO DAILY@1400 [facility] Last Admin: 05/19/17 13:19 Dose: 0.25 mg Dimethicone (Proshield Plus Skin Protectant) 1 applic TOP Q8 [facility] Last Admin: 05/19/17 13:21 Dose: 1 applic Insulin Human Lispro (Humalog) 0 units SC ACHS [facility] PRN Reason: Protocol Insulin Lispro Protam/Lispro Human (Humalog Mix 75/25) 24 units SC [facility]CD [facility] Insulin Lispro Protam/Lispro Human (Humalog Mix 75/25) 30 units SC [facility] Levetiracetam (Keppra) 750 mg PO BID [facility] Last Admin: 05/19/17 09:14 Dose: 750 mg Metoprolol Tartrate (Lopressor) 50 mg PO Q12 [facility] Last Admin: 05/19/17 08:43 Dose: Not Given Pregabalin (Lyrica) 75 mg PO 2200 [facility] Last Admin: 05/18/17 21:44 Dose: 75 mg Tamsulosin HCl (Flomax) 0.4 mg PO HS [facility] Last Admin: 05/18/17 21:35 Dose: 0.4 mg Tramadol HCl (Ultram) 50 mg PO BID PRN PRN Reason: Pain, moderate (4-7) - Labs Labs: 05/14/17 17:45
[2017-05-19 18:02] LABS: HEMOGLOBIN 11.9 g/dL (12.0-18.0); MEAN CELL VOLUME 86.8 fl (80.0-94.0); MEAN CORPUSCULAR HEMOGLOBIN 29.3 pg (27.0-31.0); MEAN CORPUSCULAR HGB CONC 33.7 g/dL (33.0-37.0); RBC 4.06 Mil/uL (4.40-5.90); RED CELL DISTRIBUTION WIDTH 16.2 % (11.5-14.5); WHITE BLOOD COUNT 18.4 K/uL (4.8-10.8)
[2017-05-19 18:16] LABS: CALCIUM 9.3 mg/dL (8.4-10.2)
--- NOTE | 2017-05-19 18:37 | CT ---
PROCEDURE: CT HEAD WITHOUT CONTRAST. HISTORY: increased lethargy COMPARISON: Unenhanced head CT 05/16/2017. TECHNIQUE: Axial computed tomography images were obtained through the head/brain without intravenous contrast. Radiation dose: Total exam DLP = 1471.80 mGy-cm. This CT exam was performed using one or more of the following dose reduction techniques: Automated exposure control, adjustment of the mA and/or kV according to patient size, and/or use of iterative reconstruction technique. FINDINGS: HEMORRHAGE: Prior right frontoparietal craniotomy reiterated as well as limited subdural hematoma and emphysema, diminishing in overall volume in the interval with residual hyperdense hemorrhagic elements remaining. Overall volume measures a maximal diameter of 11 mm at the superolateral right cerebral convexity with a leftward midline shift further reduced only 1-2 mm at this time. No interval new hemorrhage is appreciated definitively with subdural or epidural collection at the right frontal region again evident inferiorly. BRAIN: A chronic lacune in the right optic radiations is again appreciated with diffuse cerebral atrophy reiterated. Posterior fossa contents are stable. VENTRICLES: Unremarkable. No hydrocephalus. CALVARIUM: Unremarkable. PARANASAL SINUSES: Unremarkable as visualized. No significant inflammatory changes. MASTOID AIR CELLS: Unremarkable as visualized. No inflammatory changes. OTHER FINDINGS: None. IMPRESSION: Diminishing right convexity subdural hematoma with limited mass effect again evident. Leftward midline shift is further reduced now only 1-2 mm with no definite intracranial hemorrhage appearing acute at this time. Prior right frontal parietal craniotomy again evident. Chronic lacune again noted at the right optic radiations. Continued clinical and CT monitoring are recommended.
[2017-05-19] MEDS: Sodium Chloride 0.9% 1,000 ML IV SCH (19:46)
[2017-05-19 19:54] LABS: BASO # 0.1 K/uL (0.0-0.2); BASO % 0.4 % (0.0-2.0); EOS % 0.1 % (0.0-4.0); HEMOGLOBIN 11.5 g/dL (12.0-18.0); LYMPH # 1.2 K/uL (1.0-4.3); LYMPH % 6.9 % (20.0-40.0); MEAN CELL VOLUME 87.2 fl (80.0-94.0); MEAN CORPUSCULAR HEMOGLOBIN 28.8 pg (27.0-31.0); MEAN PLATELET VOLUME 6.9 fl (7.2-11.7); MONO # 1.1 K/uL (0.0-0.8); MONO % 6.5 % (0.0-10.0); NEUT # 15.1 K/uL (1.8-7.0); NEUT % 86.1 % (50.0-75.0); PLATELET COUNT 641 K/uL (130-400); WHITE BLOOD COUNT 17.5 K/uL (4.8-10.8)
[2017-05-19 20:35] LABS: BANDS 3 % (0-2); LYMPHOCYTE 8 % (20-50); MONOCYTE 4 % (0-10); NEUTROPHIL 85 % (42-75); TOTAL CELLS COUNTED 100
[2017-05-19 20:36] LABS: PLATELET ESTIMATE INCREASED (NORMAL)
[2017-05-19 20:37] LABS: ANISOCYTOSIS SLIGHT; HYPOCHROMIC SLIGHT; LARGE PLATELETS PRESENT; POIKILOCYTOSIS SLIGHT
[2017-05-19 20:53] LABS: URINE BACTERIA MANY (<OCC); URINE BILIRUBIN NEGATIVE (NEGATIVE); URINE BLOOD SMALL (NEGATIVE); URINE CLARITY CLOUDY (Clear); URINE COLOR YELLOW (YELLOW); URINE GLUCOSE (UA) >=500 mg/dL (Normal); URINE LEUKOCYTE ESTERASE LARGE Leu/uL (Negative); URINE PROTEIN 30 mg/dL (NEGATIVE); URINE UROBILINOGEN 0.2-1.0 mg/dL (0.2-1.0); WBC CLUMPS FEW /hpf
--- NOTE | 2017-05-19 21:11 | CON ---
ENDOCRINOLOGY CONSULT DATE: LOCATION: In room 624 HISTORY OF PRESENT ILLNESS: This is an 81-year-old male with recent uncontrolled type 2 insulin-requiring diabetes who presenting here to the acute rehabilitation unit following a right craniotomy and is being referred now for diabetic evaluation because of persistent hyperglycemic accelerations despite insulin dose adjustments undertaken thereof. PAST MEDICAL HISTORY: As mentioned above, history of type 2 insulin-requiring diabetes, currently on a premixed insulin regimen with Humalog 75/25 given as 20 units b.i.d. before meals and at bedtime, history of hypertensive cardiovascular disease and dyslipidemia, history of diabetic retinopathy, polyneuropathy, and nephropathy. He also has underlying coronary artery disease with previous admissions for congestive heart failure. He also has chronic obstructive lung disease as noted. He had a previous left total knee replacement as noted and moreover he had a previous admission to [facility] and presented there with a right subdural hematoma with left hemipareses and underwent a right craniotomy with evacuation of the hematoma as noted thereof and has been transferred here to [facility] for acute rehabilitation therapy. PAST SURGICAL HISTORY: Also the prior prostate surgery, the exact details are not known at this time. FAMILY HISTORY: Positive for hypertension and heart disease. SOCIAL HISTORY: The patient lives alone, has a supportive family otherwise, and no known substance use. REVIEW OF SYSTEMS: As mentioned above, admits to generalized body weakness with episodic dizziness and lightheadedness, worse in the previous admission to [facility]. His sleep patterns are disrupted, but otherwise has improved accordingly. He has episodic bouts of confusion and disorientation, but otherwise is cooperative with his physical and occupational therapy as given. No chest pains or palpitations or PND. His oral intake is variable and needs feeding assistance as per the nursing staff. No alterations of bowel or urinary patterns. PHYSICAL EXAMINATION: GENERAL: This is an average-built male in no apparent distress. VITAL SIGNS: Blood pressure of 144/80, pulse of 80 beats per minute and regular, temperature 98, respirations 20, height is 6 feet, and weight is 200 pounds. HEENT: Head is normocephalic. Eyes are anicteric with pink conjunctivae. Funduscopy not possible at this time. Ears, nose, and throat otherwise normal. NECK: Supple. Thyroid gland is normal in size. No carotid bruits or any cervical adenopathy. CARDIOPULMONARY: Some adynamic precordium. S1 and S2 is rapid and regular. LUNGS: Clear to auscultation. ABDOMEN: Flat and soft with positive bowel sounds. EXTREMITIES: No peripheral edema. Pulses are +2 bilaterally. LABORATORY DATA: Chemistry showed a BUN of 41, sodium 136, potassium 4.2, chloride 90, CO2 of 31, glucose 147, and creatinine 2.1. His hemoglobin A1c is 9.9%, which is quite elevated and indicative of suboptimal metabolic control of his diabetic condition. His glucose levels are fluctuating, ranging from 255 to 377 and 408 mg/dL. ASSESSMENT AND PLAN: This is an 81-year-old male with uncontrolled and decompensated type 2 insulin-requiring diabetes presenting here with marked hyperglycemic accelerations clearly related to a subtherapeutic insulin regimen and is now being referred for diabetic evaluation and management. He underwent a recent right craniotomy for evacuation of a right subdural hematoma and has residual left hemiparesis, undergoing acute rehabilitation therapy here at [facility]. He also has diabetic microvascular complications of retinopathy with impaired visual acuity and diabetic polyneuropathy and nephropathy with advanced azotemia as noted thereof. He also has diabetic macrovascular complications of coronary artery disease on previous admissions for congestive heart failure and peripheral arterial disease and vasculopathy. Plan of management as discussed with the staff. We will modify his current insulin regimen and change his premixed insulin regimen to just b.i.d. dosing instead of four times daily dosing as ordered. We will change the Humalog 75/25 to 30 units a.c. breakfast and 24 units a.c. dinner to start tonight. We will also add basal insulin given as Levemir at 10 units subcutaneously at bedtime daily to start tonight. We will modify the coverage scale to obviate hypoglycemia and detailed orders have been given. We will obtain serial chemistries and supplement accordingly as needed. We will also obtain baseline thyroid studies and also vitamin D level as ordered. We will follow and advise accordingly. Bianka Peterson MD
[2017-05-19] MEDS ORDERED: Insulin Detemir 100 Units/ml Inj SC SCH (22:00)
[2017-05-20] MEDS: Proshield Plus GEL TOP SCH ×3 (05:56→21:30)
[2017-05-20] MEDS: Sodium Chloride 0.9% 1,000 ML IV SCH ×2 (05:56→14:04)
[2017-05-20 06:17] LABS: BASO # 0.2 K/uL (0.0-0.2); EOS # 0.3 K/uL (0.0-0.7); EOS % 1.9 % (0.0-4.0); HEMOGLOBIN 12.2 g/dL (12.0-18.0); LYMPH # 1.5 K/uL (1.0-4.3); LYMPH % 9.4 % (20.0-40.0); MEAN CELL VOLUME 87.8 fl (80.0-94.0); MEAN CORPUSCULAR HEMOGLOBIN 29.1 pg (27.0-31.0); MEAN CORPUSCULAR HGB CONC 33.1 g/dL (33.0-37.0); MEAN PLATELET VOLUME 6.8 fl (7.2-11.7); MONO # 1.2 K/uL (0.0-0.8); MONO % 7.6 % (0.0-10.0); NEUT # 12.8 K/uL (1.8-7.0); NEUT % 80.1 % (50.0-75.0); NRBC % 0.1 % (0.0-0.0); RBC 4.21 Mil/uL (4.40-5.90); RED CELL DISTRIBUTION WIDTH 16.1 % (11.5-14.5)
[2017-05-20 06:28] LABS: ALB/GLOB RATIO 0.9 (1.0-2.1); ALBUMIN 3.5 g/dL (3.5-5.0); CALCIUM 9.2 mg/dL (8.4-10.2)
[2017-05-20] MEDS: Insulin Lispro (humaLOG) 100 Units/ml Inj SC SCH ×4 (07:27→21:31)
[2017-05-20] MEDS ORDERED: Insulin Lispro Mix 75/25 100 units/ml (HumaLog) 10ml SC SCH (07:30)
--- NOTE | 2017-05-20 08:26 | RAD ---
HISTORY: leukocytosis COMPARISON: No prior. FINDINGS: LUNGS: No consolidation. Shallow lung volumes. Central pulmonary vasculature and interstitial lung markings appear borderline prominent possibly technical -prior all pneumonitis and/or minimal central pulmonary venous congestion/interstitial pulmonary edema-considerations. PLEURA: No significant pleural effusion identified, no pneumothorax apparent. CARDIOVASCULAR: Probably normal given technique OSSEOUS STRUCTURES: Thoracic spondylosis. Bilateral shoulder arthrosis. Cervical apophyseal joint arthrosis VISUALIZED UPPER ABDOMEN: Normal. OTHER FINDINGS: None. IMPRESSION: Possible minimal central pulmonary venous congestion. Possible diffuse interstitial pneumonitis. No consolidative infiltrate. No atelectasis
--- NOTE | 2017-05-20 10:35 | CP.PCM.PN ---
Subjective - Date & Time of Evaluation Date of Evaluation: 05/20/17 Time of Evaluation: 10:31 - Subjective Subjective: Mr. Ritter was seen and examined at the bedside. He is awake with episode of confusion. He is unable to state place, person or time which is a decline from previous examination. He moves all extremities, but weak. He is unable to follow any commands. CT scan of the head done 05/19/2017 showed diminishing right convexity subdural hematoma. with limited mass effect. Leftward midline shift is further reduced now only 1-2 mm with no definite intracranial hemorrhage acute at this time. Prior right frontal parietal craniotomy again is evident. 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 UA was done with result showed large number of leukocyte esterase and high bacteria. His WBC is also elevated. There was no untoward events overnight. Objective - Vital Signs/Intake and Output Vital Signs (last 24 hours): Temp Pulse Resp BP Pulse Ox 97.0 F L 96 H 22 96/60 L 96 05/20/17 08:15 05/20/17 08:31 05/20/17 08:15 05/20/17 08:31 05/20/17 08:15 Intake and Output: 05/20/17 05/20/17 06:59 18:59 Intake Total 1600 Output Total 1200 Balance 400 - Medications Medications: Current Medications Codeine Sulfate (Codeine) 30 mg PO Q4H PRN PRN Reason: Pain, severe (8-10) Digoxin (Lanoxin) 0.25 mg PO DAILY@1400 [facility] Last Admin: 05/19/17 13:19 Dose: 0.25 mg Dimethicone (Proshield Plus Skin Protectant) 1 applic TOP Q8 [facility] Last Admin: 05/20/17 05:56 Dose: 1 applic Sodium Chloride (Sodium Chloride 0.9%) 1,000 mls @ 100 mls/hr IV .Q10H [facility] Stop: 05/20/17 18:58 Last Admin: 05/20/17 05:56 Dose: 100 mls/hr Insulin Detemir (Levemir) 10 units SC HS [facility] Last Admin: 05/19/17 21:21 Dose: 10 units Insulin Human Lispro (Humalog) 0 units SC ACHS [facility] PRN Reason: Protocol Last Admin: 05/20/17 07:27 Dose: Not Given Insulin Lispro Protam/Lispro Human (Humalog Mix 75/25) 24 units SC ACD [facility] Last Admin: 05/19/17 18:31 Dose: 24 units Insulin Lispro Protam/Lispro Human (Humalog Mix 75/25) 30 units SC ACB [facility] Last Admin: 05/20/17 07:45 Dose: 30 units Levetiracetam (Keppra) 750 mg PO BID [facility] Last Admin: 05/20/17 08:31 Dose: 750 mg Metoprolol Tartrate (Lopressor) 50 mg PO Q12 [facility] Last Admin: 05/20/17 08:31 Dose: Not Given Pregabalin (Lyrica) 75 mg PO 2200 [facility] Last Admin: 05/19/17 21:28 Dose: 75 mg Tamsulosin HCl (Flomax) 0.4 mg PO HS [facility] Last Admin: 05/19/17 21:20 Dose: 0.4 mg Tramadol HCl (Ultram) 50 mg PO BID PRN PRN Reason: Pain, moderate (4-7) - Labs Labs: 05/20/17 05:45 05/20/17 05:45 - Constitutional Appears: No Acute Distress - Head Exam Head Exam: NORMAL INSPECTION - Neurological Exam Neurological Exam: Alert, Awake Neuro motor strength exam: Left Upper Extremity: 3, Right Upper Extremity: 3, Left Lower Extremity: 4, Right Lower Extremity: 4 Additional comments: Neurological decline from previous examination. Assessment and Plan (1) Subdural hematoma Assessment & Plan: Case discussed with Dr. Jalloh, continue all current medical, physical, occupational, and speech therapies. Status: Acute (2) Seizures Assessment & Plan: Case discussed with Dr. Jalloh, continue all current medical regimen including AED. EEG result pending. Status: Acute (3) Altered mental status Assessment & Plan: Case discussed with Dr. Jalloh, recommend to treat any underlying infection and electrolyte abnormalities. Status: Acute
[2017-05-20] MEDS: Digoxin 250 mcg (0.25 mg) Tab PO SCH (14:03)
[2017-05-20] MEDS: Insulin Lispro Mix 75/25 100 units/ml (HumaLog) 10ml SC SCH (17:04)
--- NOTE | 2017-05-20 17:12 | CP.PCM.PN ---
Subjective - Date & Time of Evaluation Date of Evaluation: 05/20/17 Time of Evaluation: 17:10 - Subjective Subjective: Patient seen in room resting comfortably NAD discussed case with PT and nursing elevated WBC, UA C&S taken ambulated 45' in therapy with cues Objective - Vital Signs/Intake and Output Vital Signs (last 24 hours): Temp Pulse Resp BP Pulse Ox 97.0 F L 104 H 22 96/60 L 96 05/20/17 08:15 05/20/17 14:01 05/20/17 08:15 05/20/17 08:31 05/20/17 08:15 Intake and Output: 05/20/17 05/20/17 06:59 18:59 Intake Total 1600 Output Total 1200 Balance 400 - Medications Medications: Current Medications Codeine Sulfate (Codeine) 30 mg PO Q4H PRN PRN Reason: Pain, severe (8-10) Digoxin (Lanoxin) 0.25 mg PO DAILY@1400 [facility] Last Admin: 05/20/17 14:03 Dose: 0.25 mg Dimethicone (Proshield Plus Skin Protectant) 1 applic TOP Q8 [facility] Last Admin: 05/20/17 14:03 Dose: 1 applic Sodium Chloride (Sodium Chloride 0.9%) 1,000 mls @ 100 mls/hr IV .Q10H [facility] Stop: 05/20/17 18:58 Last Admin: 05/20/17 14:04 Dose: 100 mls/hr Insulin Detemir (Levemir) 14 units SC HS [facility] Insulin Human Lispro (Humalog) 0 units SC ACHS [facility] PRN Reason: Protocol Last Admin: 05/20/17 16:37 Dose: Not Given Insulin Lispro Protam/Lispro Human (Humalog Mix 75/25) 36 units SC ACB [facility] Insulin Lispro Protam/Lispro Human (Humalog Mix 75/25) 30 units SC ACD [facility] Last Admin: 05/20/17 17:04 Dose: 30 units Levetiracetam (Keppra) 750 mg PO BID [facility] Last Admin: 05/20/17 17:03 Dose: 750 mg Metoprolol Tartrate (Lopressor) 50 mg PO Q12 [facility] Last Admin: 05/20/17 08:31 Dose: Not Given Pregabalin (Lyrica) 75 mg PO 2200 [facility] Last Admin: 05/19/17 21:28 Dose: 75 mg Tamsulosin HCl (Flomax) 0.4 mg PO HS [facility] Last Admin: 05/19/17 21:20 Dose: 0.4 mg Tramadol HCl (Ultram) 50 mg PO BID PRN PRN Reason: Pain, moderate (4-7) - Labs Labs: 05/20/17 05:45 05/20/17 05:45
--- NOTE | 2017-05-20 20:26 | PN ---
ENDOCRINOLOGY FOLLOWUP NOTE DATE: LOCATION: In room 624, rehab unit SUBJECTIVE: This is an 81-year-old male with recent right craniotomy for an evacuation of a subdural hematoma with concomitant left residual left hemipareses and is now undergoing rehabilitation therapy and is also being followed closely for metabolic management. His glycemic levels are still fluctuating and have ranged from 172 to 293 and 326 mg/dL. His latest chemistry showed a BUN of 32, sodium 139, potassium 4.0, chloride 99, CO2 of 29, glucose 181, and creatinine 1.8. So, at this time, we will modify once again his basal and premixed insulin regimen and increase the Humalog 75/25 to 36 units before breakfast and 30 units before dinner to start today. We will modify the coverage scale to obviate hypoglycemia and detailed orders have been given. We will continue the basal insulin given as 14 units subcutaneously at bedtime daily as given. We will titrate incremental as indicated to optimize metabolic control. We will follow. Bianka Peterson MD
[2017-05-20] MEDS ORDERED: Insulin Detemir 100 Units/ml Inj SC SCH (22:00)
[2017-05-21] MEDS: Proshield Plus GEL TOP SCH ×3 (05:52→22:40)
[2017-05-21] MEDS: Insulin Lispro (humaLOG) 100 Units/ml Inj SC SCH ×4 (06:47→22:37)
[2017-05-21] MEDS ORDERED: Insulin Lispro Mix 75/25 100 units/ml (HumaLog) 10ml SC SCH (07:30)
--- NOTE | 2017-05-21 12:13 | CP.PCM.PN ---
Subjective - Date & Time of Evaluation Date of Evaluation: 05/21/17 Time of Evaluation: 12:13 - Subjective Subjective: Mr. Ritter was seen and examined at the bedside. He is awake with episode of forgetfulness. He is unable to state place, person or time which is a decline from previous examination. However, he remembers his numerous episode of large bowel movement this am. He moves all extremities, but weak especially the left side. There was no untoward events overnight. Objective - Vital Signs/Intake and Output Vital Signs (last 24 hours): Temp Pulse Resp BP Pulse Ox 97.5 F L 93 H 22 117/72 97 05/20/17 21:30 05/21/17 08:19 05/21/17 07:43 05/21/17 08:19 05/21/17 07:43 Intake and Output: 05/21/17 05/21/17 06:59 18:59 Output Total 1000 Balance -1000 - Medications Medications: Current Medications Codeine Sulfate (Codeine) 30 mg PO Q4H PRN PRN Reason: Pain, severe (8-10) Digoxin (Lanoxin) 0.25 mg PO DAILY@1400 [facility] Last Admin: 05/20/17 14:03 Dose: 0.25 mg Dimethicone (Proshield Plus Skin Protectant) 1 applic TOP Q8 [facility] Last Admin: 05/21/17 05:52 Dose: 1 applic Insulin Detemir (Levemir) 14 units SC HS [facility] Last Admin: 05/20/17 21:31 Dose: 14 unit Insulin Human Lispro (Humalog) 0 units SC ACHS [facility] PRN Reason: Protocol Last Admin: 05/21/17 06:47 Dose: Not Given Insulin Lispro Protam/Lispro Human (Humalog Mix 75/25) 36 units SC ACB [facility] Last Admin: 05/21/17 08:17 Dose: 36 units Insulin Lispro Protam/Lispro Human (Humalog Mix 75/25) 30 units SC ACD [facility] Last Admin: 05/20/17 17:04 Dose: 30 units Levetiracetam (Keppra) 750 mg PO BID [facility] Last Admin: 05/21/17 08:18 Dose: 750 mg Metoprolol Tartrate (Lopressor) 50 mg PO Q12 [facility] Last Admin: 05/21/17 08:19 Dose: 50 mg Pregabalin (Lyrica) 75 mg PO 2200 [facility] Last Admin: 05/20/17 21:28 Dose: 75 mg Tamsulosin HCl (Flomax) 0.4 mg PO HS [facility] Last Admin: 05/20/17 21:28 Dose: 0.4 mg Tramadol HCl (Ultram) 50 mg PO BID PRN PRN Reason: Pain, moderate (4-7) - Labs Labs: 05/20/17 05:45 05/20/17 05:45 - Constitutional Appears: No Acute Distress - Head Exam Head Exam: NORMAL INSPECTION - Neurological Exam Neurological Exam: Alert, Awake Neuro motor strength exam: Left Upper Extremity: 3, Right Upper Extremity: 5, Left Lower Extremity: 3, Right Lower Extremity: 5 Additional comments: He is alert with episode of forgetfulness/ confusion. He is able to follow commands. Sensation is intact. Assessment and Plan (1) Subdural hematoma Assessment & Plan: Case discussed with Dr. Jalloh, continue all current medical, physical, occupational, and speech therapies. Status: Acute (2) Seizures Assessment & Plan: Case discussed with Dr. Jalloh, continue all current medical regimen including AED. Status: Acute (3) Altered mental status Assessment & Plan: Case discussed with Dr. Jalloh, recommend to treat any underlying infection and electrolyte abnormalities. Status: Acute
--- NOTE | 2017-05-21 12:58 | CP.PCM.PN ---
Subjective - Date & Time of Evaluation Date of Evaluation: 05/21/17 Time of Evaluation: 12:30 - Subjective Subjective: Patient seen and examined bedside.As per staff with 3 episodes of loose BM this AM and not participating with PT . At present sitting in bed , having lunch. hemodynamically stable, afebrile. No acute issues overnight. Objective - Vital Signs/Intake and Output Vital Signs (last 24 hours): Temp Pulse Resp BP Pulse Ox 97.5 F L 93 H 22 117/72 97 05/20/17 21:30 05/21/17 08:19 05/21/17 07:43 05/21/17 08:19 05/21/17 07:43 Intake and Output: 05/21/17 05/21/17 06:59 18:59 Output Total 1000 Balance -1000 - Medications Medications: Current Medications Codeine Sulfate (Codeine) 30 mg PO Q4H PRN PRN Reason: Pain, severe (8-10) Digoxin (Lanoxin) 0.25 mg PO DAILY@1400 [facility] Last Admin: 05/20/17 14:03 Dose: 0.25 mg Dimethicone (Proshield Plus Skin Protectant) 1 applic TOP Q8 [facility] Last Admin: 05/21/17 05:52 Dose: 1 applic Insulin Detemir (Levemir) 14 units SC HS [facility] Last Admin: 05/20/17 21:31 Dose: 14 unit Insulin Human Lispro (Humalog) 0 units SC ACHS [facility] PRN Reason: Protocol Last Admin: 05/21/17 12:29 Dose: 5 units Insulin Lispro Protam/Lispro Human (Humalog Mix 75/25) 36 units SC ACB [facility] Last Admin: 05/21/17 08:17 Dose: 36 units Insulin Lispro Protam/Lispro Human (Humalog Mix 75/25) 30 units SC ACD [facility] Last Admin: 05/20/17 17:04 Dose: 30 units Levetiracetam (Keppra) 750 mg PO BID [facility] Last Admin: 05/21/17 08:18 Dose: 750 mg Metoprolol Tartrate (Lopressor) 50 mg PO Q12 [facility] Last Admin: 05/21/17 08:19 Dose: 50 mg Pregabalin (Lyrica) 75 mg PO 2200 [facility] Last Admin: 05/20/17 21:28 Dose: 75 mg Tamsulosin HCl (Flomax) 0.4 mg PO HS [facility] Last Admin: 05/20/17 21:28 Dose: 0.4 mg Tramadol HCl (Ultram) 50 mg PO BID PRN PRN Reason: Pain, moderate (4-7) - Labs Labs: 05/20/17 05:45 05/20/17 05:45 - Constitutional Appears: Non-toxic, No Acute Distress, Other (elderly male of stated age in NAD ) - Head Exam Head Exam: NORMOCEPHALIC Additional comments: right parietal dressing dry and intact - Eye Exam Eye Exam: EOMI, PERRL Pupil Exam: NORMAL ACCOMODATION - ENT Exam ENT Exam: Mucous Membranes Moist, Normal Exam - Neck Exam Neck Exam: Normal Inspection - Respiratory Exam Respiratory Exam: Clear to Ausculation Bilateral, NORMAL BREATHING PATTERN. absent: Rhonchi, Wheezes, Respiratory Distress - Cardiovascular Exam Cardiovascular Exam: Irregular Rhythm, +S1, +S2. absent: JVD - GI/Abdominal Exam GI & Abdominal Exam: Soft, Normal Bowel Sounds. absent: Distended, Guarding, Tenderness, Rebound - Rectal Exam Rectal Exam: Deferred - Extremities Exam Extremities Exam: Full ROM, Normal Inspection. absent: Calf Tenderness, Pedal Edema - Back Exam Back Exam: NORMAL INSPECTION - Neurological Exam Neurological Exam: Alert, Awake - Psychiatric Exam Psychiatric exam: Normal Affect - Skin Skin Exam: Dry, Warm Assessment and Plan - Assessment and Plan (Free Text) Assessment: 81 yo male with history of AFib, DM2 and HTN was admitted at [facility] because of left sided weakness and left upper extremity tremor. CT scan of the head showed Acute Right Subdural Hematoma with mass effect and midline shift. Neurosurgery consulted and patient was sent to OR for right frontal craniotomy and evacuation of hematoma. Patient was sent to [facility] for continuation of therapy.While in rehab he developed epiosdes of focal left upper extremity seizure episodes and was transferred to telemetry for short observation . Neurology was consulted and he was started on Keppra for seizure xcontrol At present back in rehab for PT . No more seizure like activity noted 1. Subdural Hematoma post craniotomy with hematoma evacuation He is alert awake, oriented and follows commands. As per staff has moments of confusion and not participating very well with PT neuro consult with Dr Jalloh on board continue Keppra PO for seizure control Continue PT/OT and speech therapy on Codeine and lyrica for pain control 2.Focal Seizure to LUE neuro consulted Continue Keppra 3. CKD stage III stable 4. AFib rate controlled continue Digoxin and Metoprolol 5. HTN BP stable but on the low side continue Metoprolol 50mg PO BID history reviewed and no indication patient had CHF in the past. Aside from cardiomegaly there was no sign of pulmonary congestion in the past and ECHO consistently has normal LV function and EF. Lasix discontinued 6. DM2 BS uncontrolled on Levemir and Insulin Lispro 75/25 36 and 30 unit BID HgA1C: 9.9 endocrinology consulted ,Dr Peterson 7. BPH continue Flomax 0.4mg PO daily Discontinued Oxybutinin 8. DVT prophylaxis [facility]
[2017-05-21] MEDS: Digoxin 250 mcg (0.25 mg) Tab PO SCH (13:29)
--- NOTE | 2017-05-21 17:39 | CP.PCM.PN ---
Subjective - Date & Time of Evaluation Date of Evaluation: 05/21/17 Time of Evaluation: 17:38 - Subjective Subjective: Patient seen in the room denies abdominal pain but has severe diarrhea denies sob/cp will get stool sample continue current care Objective - Vital Signs/Intake and Output Vital Signs (last 24 hours): Temp Pulse Resp BP Pulse Ox 97.5 F L 93 H 22 117/72 97 05/20/17 21:30 05/21/17 08:19 05/21/17 07:43 05/21/17 08:19 05/21/17 07:43 Intake and Output: 05/21/17 05/21/17 06:59 18:59 Output Total 1000 Balance -1000 - Medications Medications: Current Medications Codeine Sulfate (Codeine) 30 mg PO Q4H PRN PRN Reason: Pain, severe (8-10) Digoxin (Lanoxin) 0.25 mg PO DAILY@1400 [facility] Last Admin: 05/21/17 13:29 Dose: 0.25 mg Dimethicone (Proshield Plus Skin Protectant) 1 applic TOP Q8 [facility] Last Admin: 05/21/17 05:52 Dose: 1 applic Ceftriaxone Sodium 1 gm/ (Sodium Chloride) 100 mls @ 100 mls/hr IVPB DAILY [facility] PRN Reason: Protocol Insulin Detemir (Levemir) 16 units SC HS [facility] Insulin Human Lispro (Humalog) 0 units SC ACHS [facility] PRN Reason: Protocol Last Admin: 05/21/17 12:29 Dose: 5 units Insulin Lispro Protam/Lispro Human (Humalog Mix 75/25) 30 units SC ACD [facility] Last Admin: 05/20/17 17:04 Dose: 30 units Insulin Lispro Protam/Lispro Human (Humalog Mix 75/25) 44 units SC ACB [facility] Levetiracetam (Keppra) 750 mg PO BID [facility] Last Admin: 05/21/17 08:18 Dose: 750 mg Metoprolol Tartrate (Lopressor) 50 mg PO Q12 [facility] Last Admin: 05/21/17 08:19 Dose: 50 mg Pregabalin (Lyrica) 75 mg PO 2200 [facility] Last Admin: 05/20/17 21:28 Dose: 75 mg Tamsulosin HCl (Flomax) 0.4 mg PO HS [facility] Last Admin: 05/20/17 21:28 Dose: 0.4 mg Tramadol HCl (Ultram) 50 mg PO BID PRN PRN Reason: Pain, moderate (4-7) - Labs Labs: 05/20/17 05:45 05/20/17 05:45
[2017-05-21] MEDS: Insulin Lispro Mix 75/25 100 units/ml (HumaLog) 10ml SC SCH (18:09)
--- NOTE | 2017-05-21 20:45 | PN ---
ENDOCRINOLOGY FOLLOWUP NOTE DATE: LOCATION: In room 624 SUBJECTIVE: This is an 81-year-old male with recent uncontrolled type 2 insulin-requiring diabetes presenting here for acute rehabilitation therapy following a recent right craniotomy for evacuation of subdural hematoma and is now being followed closely for metabolic management because of recent hyperglycemic accelerations as noted thereof. His glucose levels are fluctuating, but improved and the glucose values today have ranged from 182 to 395 and 383 mg/dL. His latest chemistry showed a BUN of 32, sodium 139, potassium 4.0, chloride 99, CO2 of 29, glucose 181, and creatinine 1.8. Because of the variability of his oral intake, we will modify once again his basal and premixed insulin regimen and increase the Humalog 75/25 to 44 units subcutaneously a.c. breakfast to start tomorrow morning as ordered. We will continue however the same dose of the Humalog 75/25 at dinnertime at 30 units a.c. dinner as ordered. We will increase and titrate his basal insulin given as Levemir to 16 units subcutaneously at bedtime daily as ordered. We will continue the low-dose correction scale using Humalog insulin as given. We will obtain serial chemistries and supplement accordingly as needed. We will follow. Bianka Peterson MD
[2017-05-21] MEDS ORDERED: Insulin Detemir 100 Units/ml Inj SC SCH (22:00)
[2017-05-21] MEDS: metroNIDAZOLE 500mg/100ml NS 100 ML IVPB SCH (22:22)
[2017-05-22] MEDS: Proshield Plus GEL TOP SCH ×3 (05:03→21:19)
[2017-05-22] MEDS: metroNIDAZOLE 500mg/100ml NS 100 ML IVPB SCH (05:03)
[2017-05-22] MEDS: Insulin Lispro (humaLOG) 100 Units/ml Inj SC SCH ×4 (06:57→21:28)
[2017-05-22 07:22] LABS: HEMOGLOBIN 11.8 g/dL (12.0-18.0); MEAN CELL VOLUME 87.6 fl (80.0-94.0); MEAN CORPUSCULAR HEMOGLOBIN 29.7 pg (27.0-31.0); MEAN CORPUSCULAR HGB CONC 33.9 g/dL (33.0-37.0); RBC 3.96 Mil/uL (4.40-5.90); RED CELL DISTRIBUTION WIDTH 16.1 % (11.5-14.5); WHITE BLOOD COUNT 14.5 K/uL (4.8-10.8)
[2017-05-22] MEDS ORDERED: Insulin Lispro Mix 75/25 100 units/ml (HumaLog) 10ml SC SCH ×2 (07:30→16:30)
[2017-05-22] MEDS: Digoxin 250 mcg (0.25 mg) Tab PO SCH (14:28)
--- NOTE | 2017-05-22 14:57 | PN ---
DATE: ENDO FOLLOWUP NOTE LOCATION: 624. SUBJECTIVE: This is a 81-year-old male with recent craniotomy for evacuation of a right subdural hematoma and is now being followed closely for metabolic management because of recent hyperglycemic accelerations as noted thereof. His glucose levels today are still fluctuating and are ranging from 350 mg/dL to 361 mg/dL. The morning glucose was 331 as mentioned. So at this time, we will actually modify once again his basal and premixed insulin regimen and increase the Humalog 75/25 to 50 units a.c. breakfast and 40 units a.c. dinner to start today. We will also increase the basal insulin given as Levemir at 20 units subcu at bedtime daily to start tonight. We will continue the low-dose correction scale using Humalog insulin as given. We will obtain serial chemistries and supplement accordingly as needed. We will follow. Bianka Peterson MD
[2017-05-22] MEDS: Insulin Lispro Mix 75/25 100 units/ml (HumaLog) 10ml SC SCH (17:00)
[2017-05-22] MEDS: Lactobacillus Acidophilus 500 MU Cap PO SCH (17:05)
[2017-05-22] MEDS: Piperacillin/Tazobact 3.375 GM in Sodium Chloride 0.9% 100 ML IVPB SCH (20:25)
[2017-05-22] MEDS: Insulin Detemir 100 Units/ml Inj SC SCH (21:27)
[2017-05-23] MEDS: Piperacillin/Tazobact 3.375 GM in Sodium Chloride 0.9% 100 ML IVPB SCH ×5 (01:02→23:25)
[2017-05-23 07:05] LABS: BASO # 0.1 K/uL (0.0-0.2); BASO % 1.1 % (0.0-2.0); EOS # 0.2 K/uL (0.0-0.7); EOS % 1.3 % (0.0-4.0); LYMPH # 1.3 K/uL (1.0-4.3); LYMPH % 10.5 % (20.0-40.0); MEAN CELL VOLUME 87.6 fl (80.0-94.0); MEAN CORPUSCULAR HEMOGLOBIN 29.9 pg (27.0-31.0); MEAN CORPUSCULAR HGB CONC 34.2 g/dL (33.0-37.0); MEAN PLATELET VOLUME 7.1 fl (7.2-11.7); MONO # 1.3 K/uL (0.0-0.8); MONO % 10.4 % (0.0-10.0); NEUT # 9.8 K/uL (1.8-7.0); NEUT % 76.7 % (50.0-75.0); RBC 4.03 Mil/uL (4.40-5.90); RED CELL DISTRIBUTION WIDTH 16.4 % (11.5-14.5); WHITE BLOOD COUNT 12.8 K/uL (4.8-10.8)
[2017-05-23 07:16] LABS: ALB/GLOB RATIO 0.8 (1.0-2.1); ALBUMIN 3.3 g/dL (3.5-5.0)
[2017-05-23] MEDS: Proshield Plus GEL TOP SCH ×3 (07:19→21:43)
[2017-05-23] MEDS: Insulin Lispro (humaLOG) 100 Units/ml Inj SC SCH ×4 (07:24→21:53)
[2017-05-23] MEDS: Insulin Lispro Mix 75/25 100 units/ml (HumaLog) 10ml SC SCH ×2 (07:26→17:00)
[2017-05-23] MEDS: Lactobacillus Acidophilus 500 MU Cap PO SCH ×2 (08:08→17:19)
[2017-05-23] MEDS: Sodium Chloride 0.9% 1,000 ML IV SCH ×2 (10:13→20:21)
--- NOTE | 2017-05-23 10:39 | PN ---
DATE: ENDO FOLLOWUP NOTE LOCATION: Room 624. SUBJECTIVE: This is an 81-year-old male admitted to the acute rehab unit following a right craniotomy for a subdural hematoma and is now being followed closely for metabolic management because of marked hyperglycemic accelerations as noted thereof. He seems to be quite insulin resistant with higher insulin requirements being given almost on a daily basis with insulin dose adjustments undertaken thereof. His glucose values overnight have ranged from 139 to 264 and 234 mg/dL. His latest chemistry include BUN of 38, sodium of 140, potassium of 4.1, chloride of 102, CO2 of 25, glucose of 163, and creatinine of 2.1. So at this time, we will continue the modified basal and premixed insulin regimen with Humalog 75/25 given as 50 units a.c. breakfast and 40 units a.c. dinner as ordered. We will continue also the Levemir given as 20 units subcu at bedtime daily as given. We will continue the low-dose correction scale using Humalog insulin as given. We will obtain serial chemistries and supplement accordingly as needed. We will follow. Bianka Peterson MD
--- NOTE | 2017-05-23 12:04 | CP.PCM.PN ---
Subjective - Date & Time of Evaluation Date of Evaluation: 05/23/17 Time of Evaluation: 12:04 - Subjective Subjective: Mr. Ritter was seen and examined at the bedside. He is awake with episode of forgetfulness. He is able to state place, time, and person. He denies any headache, dizziness, lightheadedness, nausea, or vomiting. He is able to follow simple commands. He is currently on antibiotic therapy for urinary infection.There was no untoward events overnight. Objective - Vital Signs/Intake and Output Vital Signs (last 24 hours): Temp Pulse Resp BP Pulse Ox 98.1 F 101 H 24 108/64 97 05/23/17 10:00 05/23/17 08:05 05/23/17 07:30 05/23/17 08:05 05/23/17 07:30 Intake and Output: 05/23/17 05/23/17 06:59 18:59 Intake Total 800 Output Total 850 Balance -50 - Medications Medications: Current Medications Acetaminophen (Tylenol 325mg Tab) 650 mg PO Q4 PRN PRN Reason: Fever >100.4 F Last Admin: 05/22/17 18:55 Dose: 650 mg Codeine Sulfate (Codeine) 30 mg PO Q4H PRN PRN Reason: Pain, severe (8-10) Digoxin (Lanoxin) 0.25 mg PO DAILY@1400 [facility] Last Admin: 05/22/17 14:28 Dose: 0.25 mg Dimethicone (Proshield Plus Skin Protectant) 1 applic TOP Q8 [facility] Last Admin: 05/23/17 07:19 Dose: 1 applic Piperacillin Sod/Tazobactam (Sod 3.375 gm/ Sodium Chloride) 100 mls @ 100 mls/ hr IVPB Q6 [facility] PRN Reason: Protocol Last Admin: 05/23/17 11:44 Dose: 100 mls/hr Sodium Chloride (Sodium Chloride 0.9%) 1,000 mls @ 100 mls/hr IV .Q10H [facility] Stop: 05/24/17 09:54 Last Admin: 05/23/17 10:13 Dose: 100 mls/hr Insulin Detemir (Levemir) 20 units SC [facility] Last Admin: 05/22/17 21:27 Dose: 20 units Insulin Human Lispro (Humalog) 0 units SC [facility] PRN Reason: Protocol Last Admin: 05/23/17 11:46 Dose: Not Given Insulin Lispro Protam/Lispro Human (Humalog Mix 75/25) 40 units SC ACD [facility] Last Admin: 05/22/17 17:00 Dose: 40 units Insulin Lispro Protam/Lispro Human (Humalog Mix 75/25) 50 units SC ACB [facility] Last Admin: 05/23/17 07:26 Dose: 50 units Lactobacillus Acidophilus (Bacid Acidophilus) 1 cap PO BID [facility] Last Admin: 05/23/17 08:08 Dose: 1 cap Levetiracetam (Keppra) 750 mg PO BID [facility] Last Admin: 05/23/17 08:05 Dose: 750 mg Metoprolol Tartrate (Lopressor) 50 mg PO Q12 [facility] Last Admin: 05/23/17 08:05 Dose: 50 mg Pregabalin (Lyrica) 75 mg PO 2200 [facility] Last Admin: 05/22/17 21:17 Dose: 75 mg Tamsulosin HCl (Flomax) 0.4 mg PO HS [facility] Last Admin: 05/22/17 21:18 Dose: 0.4 mg Tramadol HCl (Ultram) 50 mg PO BID PRN PRN Reason: Pain, moderate (4-7) - Labs Labs: 05/23/17 05:25 05/23/17 05:25 - Constitutional Appears: No Acute Distress - Head Exam Head Exam: NORMAL INSPECTION - Neurological Exam Neurological Exam: Alert, Awake, Oriented x3 Neuro motor strength exam: Left Upper Extremity: 4, Right Upper Extremity: 5, Left Lower Extremity: 4, Right Lower Extremity: 5 Additional comments: Neurological improved from previous examination, he is alert, oriented in all spheres Assessment and Plan (1) Subdural hematoma Assessment & Plan: Case discussed with Dr. Jalloh, continue all current medical, physical, occupational, and speech therapies. Status: Acute (2) Seizures Assessment & Plan: Case discussed with Dr. Jalloh, continue all current medical regimen including AED. Status: Acute
[2017-05-23] MEDS: Digoxin 250 mcg (0.25 mg) Tab PO SCH (13:31)
[2017-05-23] MEDS: Insulin Detemir 100 Units/ml Inj SC SCH (21:51)
[2017-05-24] MEDS: Sodium Chloride 0.9% 1,000 ML IV SCH (06:19)
[2017-05-24] MEDS: Proshield Plus GEL TOP SCH ×3 (06:19→21:17)
[2017-05-24] MEDS: Piperacillin/Tazobact 3.375 GM in Sodium Chloride 0.9% 100 ML IVPB SCH ×5 (06:20→23:30)
[2017-05-24 06:38] LABS: BASO # 0.1 K/uL (0.0-0.2); BASO % 1.2 % (0.0-2.0); CALCIUM 8.2 mg/dL (8.4-10.2); EOS # 0.3 K/uL (0.0-0.7); EOS % 2.3 % (0.0-4.0); LYMPH # 1.6 K/uL (1.0-4.3); LYMPH % 13.4 % (20.0-40.0); MEAN CELL VOLUME 86.7 fl (80.0-94.0); MEAN CORPUSCULAR HEMOGLOBIN 29.7 pg (27.0-31.0); MEAN CORPUSCULAR HGB CONC 34.3 g/dL (33.0-37.0); MEAN PLATELET VOLUME 7.4 fl (7.2-11.7); MONO # 1.2 K/uL (0.0-0.8); MONO % 9.5 % (0.0-10.0); NEUT # 9.1 K/uL (1.8-7.0); NEUT % 73.6 % (50.0-75.0); RBC 3.7 Mil/uL (4.40-5.90); RED CELL DISTRIBUTION WIDTH 16.4 % (11.5-14.5); WHITE BLOOD COUNT 12.3 K/uL (4.8-10.8)
[2017-05-24] MEDS: Insulin Lispro Mix 75/25 100 units/ml (HumaLog) 10ml SC SCH ×3 (07:37→18:05)
[2017-05-24] MEDS: Insulin Lispro (humaLOG) 100 Units/ml Inj SC SCH ×4 (07:40→21:00)
[2017-05-24] MEDS: Lactobacillus Acidophilus 500 MU Cap PO SCH ×3 (08:38→18:03)
--- NOTE | 2017-05-24 10:43 | CP.PCM.PN ---
Subjective - Date & Time of Evaluation Date of Evaluation: 05/24/17 Time of Evaluation: 10:43 - Subjective Subjective: Mr. Ritter was seen and examined at the bedside. He is awake with episode of forgetfulness. He is able to state place, time, and person. He denies any headache, dizziness, lightheadedness, nausea, or vomiting. He is able to follow simple commands. He is currently on antibiotic therapy for urinary infection. His blood pressure this morning was below 100, currently receiving normal saline. He is complaining of pain in his bilateral lower extremities, no redness , able to do flexion and extension.There was no untoward events overnight. Objective - Vital Signs/Intake and Output Vital Signs (last 24 hours): Temp Pulse Resp BP Pulse Ox 98.1 F 101 H 18 94/61 L 98 05/24/17 09:08 05/24/17 09:08 05/24/17 09:08 05/24/17 09:08 05/24/17 09:08 Intake and Output: 05/24/17 05/24/17 06:59 18:59 Intake Total 1700 Output Total 900 Balance 800 - Medications Medications: Current Medications Acetaminophen (Tylenol 325mg Tab) 650 mg PO Q4 PRN PRN Reason: Fever >100.4 F Last Admin: 05/22/17 18:55 Dose: 650 mg Codeine Sulfate (Codeine) 30 mg PO Q4H PRN PRN Reason: Pain, severe (8-10) Digoxin (Lanoxin) 0.25 mg PO DAILY@1400 [facility] Last Admin: 05/23/17 13:31 Dose: 0.25 mg Dimethicone (Proshield Plus Skin Protectant) 1 applic TOP Q8 [facility] Last Admin: 05/24/17 06:19 Dose: 1 applic Piperacillin Sod/Tazobactam (Sod 3.375 gm/ Sodium Chloride) 100 mls @ 100 mls/ hr IVPB Q6 [facility] PRN Reason: Protocol Last Admin: 05/24/17 06:20 Dose: 100 mls/hr Insulin Detemir (Levemir) 20 units SC [facility] Last Admin: 05/23/17 21:51 Dose: 20 units Insulin Human Lispro (Humalog) 0 units SC ACHS [facility] PRN Reason: Protocol Last Admin: 05/24/17 07:40 Dose: Not Given Insulin Lispro Protam/Lispro Human (Humalog Mix 75/25) 40 units SC ACD [facility] Last Admin: 05/23/17 17:00 Dose: 40 units Insulin Lispro Protam/Lispro Human (Humalog Mix 75/25) 50 units SC ACB [facility] Last Admin: 05/24/17 07:37 Dose: 50 units Lactobacillus Acidophilus (Bacid Acidophilus) 1 cap PO BID [facility] Last Admin: 05/24/17 08:38 Dose: 1 cap Levetiracetam (Keppra) 750 mg PO BID [facility] Last Admin: 05/24/17 08:35 Dose: 750 mg Metoprolol Tartrate (Lopressor) 50 mg PO Q12 [facility] Last Admin: 05/24/17 08:36 Dose: Not Given Pregabalin (Lyrica) 75 mg PO 2200 [facility] Last Admin: 05/23/17 21:41 Dose: 75 mg Tamsulosin HCl (Flomax) 0.4 mg PO HS [facility] Last Admin: 05/23/17 21:42 Dose: 0.4 mg Tramadol HCl (Ultram) 50 mg PO BID PRN PRN Reason: Pain, moderate (4-7) Last Admin: 05/23/17 21:44 Dose: 50 mg - Labs Labs: 05/24/17 05:30 05/24/17 05:30 - Constitutional Appears: No Acute Distress - Head Exam Head Exam: NORMAL INSPECTION - Neurological Exam Neurological Exam: Alert, Awake Neuro motor strength exam: Left Upper Extremity: 3, Right Upper Extremity: 5, Left Lower Extremity: 3, Right Lower Extremity: 5 Additional comments: Neurological unchanged from previous examination. Assessment and Plan (1) Subdural hematoma Assessment & Plan: Case discussed with Dr. Jalloh, continue all current medical, physical, occupational, and speech therapies. Status: Acute (2) Seizures Assessment & Plan: Case discussed with Dr. Jalloh, continue all current medical regimen including AED. Status: Acute (3) Pain of lower extremity Assessment & Plan: Case discussed with Dr. Jalloh, recommend stat venous duplex of the bilateral lower extremities. Status: Acute
--- NOTE | 2017-05-24 12:21 | US ---
PROCEDURE: Bilateral lower extremity venous duplex Doppler. HISTORY: pain in bilateral lower extremities COMPARISON: None available. TECHNIQUE: Bilateral common femoral, superficial femoral, popliteal and posterior tibial veins were evaluated. Flow was assessed with color Doppler, compressibility, assessment of phasic flow and augmentation response. FINDINGS: COMMON FEMORAL VEIN: Right CFV: Focal thrombus identified right common femoral vein. This extends to the saphenous femoral junction. Flow identified proximal and distal to the thrombus. Left CFV: Occlusive thrombus identified SUPERFICIAL FEMORAL VEIN: Right SFV: Unremarkable. Left SFV: Occlusive thrombus noted. This appears to be noncompressible POPLITEAL VEIN: Right Popliteal: Unremarkable. Left Popliteal: Thrombus identified extending to the left popliteal and posterior tibial veins. POSTERIOR TIBIAL VEIN: Right PTV: Unremarkable. Left PTV: Unremarkable. OTHER FINDINGS: None. IMPRESSION: Left lower extremity: Extensive thrombus identified throughout the visualized deep venous system. Right lower extremity: Nonocclusive focal thrombus identified proximal right common femoral vein and extending to the saphenous femoral junction. Communication of results: A verbal result was provided at 11:40. The study was completed at 11:37
[2017-05-24] MEDS: Digoxin 250 mcg (0.25 mg) Tab PO SCH (13:29)
--- NOTE | 2017-05-24 14:58 | CP.PCM.CON ---
History of Present Illness - History of Present Illness History of Present Illness: SURGERY CONSULT NOTE FOR DR. BUTLER 81M presents in rehab with Lower extremity DVTs. Patient is currently in rehab after being discharge from [facility]. He was there because he suffered an acute subdural hematoma which was evacuated in the OR by neurosurgery. PMH: AFib, DM2, HTN and CHF, subdural hematoma PSH: evac of subdural Past Patient History - Infectious Disease Hx of Infectious Diseases: None - Tetanus Immunizations Tetanus Immunization: Unknown - Past Social History Smoking Status: Never Smoked Alcohol: None Home Situation {Lives}: Alone - CARDIAC Hx Cardiac Disorders: Yes Hx Congestive Heart Failure: Yes Hx Hypertension: Yes - PULMONARY Hx Chronic Obstructive Pulmonary Disease (COPD): Yes - NEUROLOGICAL Hx Neurological Disorder: No - HEENT Hx HEENT Problems: Yes Hx Cataracts: Yes Hx Glaucoma: Yes - RENAL Hx Chronic Kidney Disease: No - ENDOCRINE/METABOLIC Hx Diabetes Mellitus Type 2: Yes - HEMATOLOGICAL/ONCOLOGICAL Hx Blood Transfusions: Yes (ffp) Hx Blood Transfusion Reaction: No - INTEGUMENTARY Hx Dermatological Problems: No - MUSCULOSKELETAL/RHEUMATOLOGICAL Hx Falls: No - GASTROINTESTINAL Hx Gastrointestinal Disorders: Yes Hx Gastroesophageal Reflux: Yes - GENITOURINARY/GYNECOLOGICAL Other/Comment: prostate sx - PSYCHIATRIC Hx Substance Use: No - SURGICAL HISTORY Hx Surgeries: Yes - ANESTHESIA Hx Anesthesia Reactions: No Hx Malignant Hyperthermia: No Meds Allergies/Adverse Reactions: Allergies Allergy/AdvReac Type Severity Reaction Status Date / Time No Known Allergies Allergy Verified 05/14/17 14:25 - Medications Medications: Current Medications Acetaminophen (Tylenol 325mg Tab) 650 mg PO Q4 PRN PRN Reason: Fever >100.4 F Last Admin: 05/22/17 18:55 Dose: 650 mg Codeine Sulfate (Codeine) 30 mg PO Q4H PRN PRN Reason: Pain, severe (8-10) Digoxin (Lanoxin) 0.25 mg PO DAILY@1400 [facility] Last Admin: 05/24/17 13:29 Dose: 0.25 mg Dimethicone (Proshield Plus Skin Protectant) 1 applic TOP Q8 [facility] Last Admin: 05/24/17 13:29 Dose: 1 applic Heparin Sodium (Porcine) (Heparin) 3,000 units SC Q12 [facility] PRN Reason: Protocol Last Admin: 05/24/17 13:31 Dose: 3,000 units Piperacillin Sod/Tazobactam (Sod 3.375 gm/ Sodium Chloride) 100 mls @ 100 mls/ hr IVPB Q6 [facility] PRN Reason: Protocol Last Admin: 05/24/17 12:20 Dose: 100 mls/hr Insulin Detemir (Levemir) 20 units SC HS [facility] Last Admin: 05/23/17 21:51 Dose: 20 units Insulin Human Lispro (Humalog) 0 units SC ACHS [facility] PRN Reason: Protocol Last Admin: 05/24/17 12:15 Dose: Not Given Insulin Lispro Protam/Lispro Human (Humalog Mix 75/25) 40 units SC ACD [facility] Last Admin: 05/23/17 17:00 Dose: 40 units Insulin Lispro Protam/Lispro Human (Humalog Mix 75/25) 50 units SC ACB [facility] Last Admin: 05/24/17 07:37 Dose: 50 units Lactobacillus Acidophilus (Bacid Acidophilus) 1 cap PO BID [facility] Last Admin: 05/24/17 08:38 Dose: 1 cap Levetiracetam (Keppra) 750 mg PO BID [facility] Last Admin: 05/24/17 08:35 Dose: 750 mg Metoprolol Tartrate (Lopressor) 50 mg PO Q12 [facility] Last Admin: 05/24/17 08:36 Dose: Not Given Pregabalin (Lyrica) 75 mg PO 2200 [facility] Last Admin: 05/23/17 21:41 Dose: 75 mg Tamsulosin HCl (Flomax) 0.4 mg PO [facility] Last Admin: 05/23/17 21:42 Dose: 0.4 mg Tramadol HCl (Ultram) 50 mg PO BID PRN PRN Reason: Pain, moderate (4-7) Last Admin: 05/23/17 21:44 Dose: 50 mg Physical Exam - Constitutional Appears: Non-toxic, No Acute Distress - Respiratory Exam Respiratory Exam: Clear to Auscultation Bilateral, NORMAL BREATHING PATTERN - Cardiovascular Exam Cardiovascular Exam: REGULAR RHYTHM, +S1, +S2 - GI/Abdominal Exam GI & Abdominal Exam: Soft. absent: Distended, Firm, Guarding, Rebound, Rigid, Tenderness - Extremities Exam Extremities exam: Negative for: pedal edema, tenderness Additional comments: left lower extremity swollen, warm and tender to touch, no erythema - Neurological Exam Neurological exam: Alert - Psychiatric Exam Psychiatric exam: Normal Affect, Normal Mood - Skin Skin Exam: Dry, Intact, Normal Color, Warm Results - Vital Signs Recent Vital Signs: Last Vital Signs Temp 98.1 F 05/24/17 09:08 Pulse 101 H 05/24/17 09:08 Resp 18 05/24/17 09:08 BP 94/61 L 05/24/17 09:08 Pulse Ox 98 05/24/17 09:08 - Labs Result Diagrams: 05/24/17 05:30 05/24/17 05:30 Labs: Laboratory Results - last 24 hr 05/23/17 05/23/17 05/24/17 16:35 21:04 05:30 WBC 12.3 H RBC 3.70 L Hgb 11.0 L Hct 32.0 L MCV 86.7 MCH 29.7 MCHC 34.3 RDW 16.4 H Plt Count 465 H MPV 7.4 Neut % (Auto) 73.6 Lymph % (Auto) 13.4 L [place] % (Auto) 9.5 Eos % (Auto) 2.3 Baso % (Auto) 1.2 Neut # (Auto) 9.1 H Lymph # (Auto) 1.6 [place] # (Auto) 1.2 H Eos # (Auto) 0.3 Baso # (Auto) 0.1 Sodium Potassium Chloride Carbon Dioxide Anion Gap BUN Creatinine Est GFR ( Amer) Est GFR (Non-Af Amer) POC Glucose (mg/dL) 126 H 191 H Random Glucose Calcium 05/24/17 05/24/17 05/24/17 05:30 05:34 11:03 WBC RBC Hgb Hct MCV MCH MCHC RDW Plt Count MPV Neut % (Auto) Lymph % (Auto) [place] % (Auto) Eos % (Auto) Baso % (Auto) Neut # (Auto) Lymph # (Auto) [place] # (Auto) Eos # (Auto) Baso # (Auto) Sodium 142 Potassium 4.1 Chloride 107 Carbon Dioxide 22 Anion Gap 17 BUN 35 H Creatinine 2.3 H Est GFR ( Amer) 33 Est GFR (Non-Af Amer) 27 POC Glucose (mg/dL) 104 199 H Random Glucose 125 H Calcium 8.2 L Assessment & Plan - Assessment and Plan (Free Text) Assessment: 81M with extensive lower extremity DVT. s/p craniotomy with evacuation of subdural hematoma Plan: - plan for IVC filter placement Patient seen, examined and discussed with Dr. Wendy Coles, PGY2
--- NOTE | 2017-05-24 15:16 | CP.PCM.PN ---
Subjective - Date & Time of Evaluation Date of Evaluation: 05/24/17 Time of Evaluation: 13:00 - Subjective Subjective: Patient seen and examined at bedside this morning. Overnight d/o bilateral calf pain; dopplers were ordered by neurology and extensive DVT found in left leg and common femoral DVT extending to the saphenous femoral junction (nonocclusive ) found in right leg. The patient relates at this time that his pain is mild. He denies any numbness, cold, or tingling in his legs. Denies any other problems at this time. HD stable, NAD. Objective - Vital Signs/Intake and Output Vital Signs (last 24 hours): Temp Pulse Resp BP Pulse Ox 98.1 F 101 H 18 94/61 L 98 05/24/17 09:08 05/24/17 09:08 05/24/17 09:08 05/24/17 09:08 05/24/17 09:08 Intake and Output: 05/24/17 05/24/17 06:59 18:59 Intake Total 1700 Output Total 900 Balance 800 - Medications Medications: Current Medications Acetaminophen (Tylenol 325mg Tab) 650 mg PO Q4 PRN PRN Reason: Fever >100.4 F Last Admin: 05/22/17 18:55 Dose: 650 mg Codeine Sulfate (Codeine) 30 mg PO Q4H PRN PRN Reason: Pain, severe (8-10) Digoxin (Lanoxin) 0.25 mg PO DAILY@1400 [facility] Last Admin: 05/24/17 13:29 Dose: 0.25 mg Dimethicone (Proshield Plus Skin Protectant) 1 applic TOP Q8 [facility] Last Admin: 05/24/17 13:29 Dose: 1 applic Heparin Sodium (Porcine) (Heparin) 3,000 units SC Q12 [facility] PRN Reason: Protocol Last Admin: 05/24/17 13:31 Dose: 3,000 units Piperacillin Sod/Tazobactam (Sod 3.375 gm/ Sodium Chloride) 100 mls @ 100 mls/ hr IVPB Q6 [facility] PRN Reason: Protocol Last Admin: 05/24/17 12:20 Dose: 100 mls/hr Insulin Detemir (Levemir) 20 units SC HS [facility] Last Admin: 05/23/17 21:51 Dose: 20 units Insulin Human Lispro (Humalog) 0 units SC ACHS [facility] PRN Reason: Protocol Last Admin: 05/24/17 12:15 Dose: Not Given Insulin Lispro Protam/Lispro Human (Humalog Mix 75/25) 40 units SC ACD [facility] Last Admin: 05/23/17 17:00 Dose: 40 units Insulin Lispro Protam/Lispro Human (Humalog Mix 75/25) 50 units SC ACB [facility] Last Admin: 05/24/17 07:37 Dose: 50 units Lactobacillus Acidophilus (Bacid Acidophilus) 1 cap PO BID [facility] Last Admin: 05/24/17 08:38 Dose: 1 cap Levetiracetam (Keppra) 750 mg PO BID [facility] Last Admin: 05/24/17 08:35 Dose: 750 mg Metoprolol Tartrate (Lopressor) 50 mg PO Q12 [facility] Last Admin: 05/24/17 08:36 Dose: Not Given Pregabalin (Lyrica) 75 mg PO 2200 [facility] Last Admin: 05/23/17 21:41 Dose: 75 mg Tamsulosin HCl (Flomax) 0.4 mg PO HS [facility] Last Admin: 05/23/17 21:42 Dose: 0.4 mg Tramadol HCl (Ultram) 50 mg PO BID PRN PRN Reason: Pain, moderate (4-7) Last Admin: 05/23/17 21:44 Dose: 50 mg - Labs Labs: 05/24/17 05:30 05/24/17 05:30 - Additional Findings Additional findings: Physical exam: Constitutional- cooperative, awake, alert Head- NCAT, PERRL Eye- PERRL, EOMI ENT- normal exam, MMM. Neck- normal inspection, supple, no JVD Respiratory- CTAB, no wheezes rales rhonchi Cardiovascular- RRR, +S1, +S2 no MRG GI/Abdominal- normal bowel sounds, soft, no mass, no hsm Skin- warm, dry Extremities Exam- + Calf pain bilaterally, normal capillary refill, normal inspection Neurological Exam- alert, awake, oriented, 3/5 muscle strength in left upper and lower extremity, 5/5 muscle strength in right upper and lower extremities Psych- normal mood, normal affect Assessment and Plan - Assessment and Plan (Free Text) Plan: 81 yo male with history of AFib, DM2 and HTN was admitted at [facility] because of left sided weakness and left upper extremity tremor. CT scan of the head showed Acute Right Subdural Hematoma with mass effect and midline shift. Neurosurgery consulted and patient was sent to OR for right frontal craniotomy and evacuation of hematoma. Patient was sent to [facility] Acute [facility] for continuation of therapy.While in rehab he developed epiosdes of focal left upper extremity seizure episodes and was transferred to telemetry for short observation . Neurology was consulted and he was started on Keppra for seizure control. At present back in rehab for PT . No more seizure like activity noted. 05/24/2017 c/o calf pain and bilateral DVT found. 1. Subdural Hematoma post craniotomy with hematoma evacuation He is alert awake, oriented and follows commands. As per staff has moments of confusion and not participating very well with PT neuro consult with Dr Jalloh on board continue Keppra PO for seizure control Continue PT/OT and speech therapy on Codeine and lyrica for pain control 2.Focal Seizure to [facility] neuro consulted Continue Keppra 3. Bilateral DVT, Left leg with extensive DVT, right with common femoral vein DVT Dr. Nguyen on consult- recommends holding off on all anticoagulation due to hx subdural hematoma Patient for IVC filter, consent given by henry bilateral lower extremities warm, good capillary refill. 3. CKD stage III stable 4. AFib rate controlled continue Digoxin and Metoprolol 5. HTN BP stable but on the low side continue Metoprolol 50mg PO BID history reviewed and no indication patient had CHF in the past. Aside from cardiomegaly there was no sign of pulmonary congestion in the past and ECHO consistently has normal LV function and EF. Lasix discontinued 6. DM2 BS uncontrolled on Levemir and Insulin Lispro 75/25 36 and 30 unit BID HgA1C: 9.9 endocrinology consulted ,Dr Peterson 7. BPH continue Flomax 0.4mg PO daily Discontinued Oxybutinin 8. DVT prophylaxis SCD
[2017-05-24] MEDS ORDERED: Lidocaine 1% w Epi 1:100,000 Inj ONE (16:08)
[2017-05-24] MEDS ORDERED: Lidocaine 1% Inj (20ml) ONE (16:08)
[2017-05-24] MEDS ORDERED: Bupivacaine 0.5% Inj(30mL) ONE (16:08)
[2017-05-24] MEDS ORDERED: Iohexol 300 10 ML ONE (16:25)
[2017-05-24] MEDS ORDERED: Iohexol 300 100 ML IJ ONE (16:26)
[2017-05-24] MEDS ORDERED: Lidocaine 1% Inj (20ml) IJ ONE (16:58)
[2017-05-24 17:06] LABS: INR 1.3 (0.9-1.2); PARTIAL THROMBOPLASTIN TIME 27.6 Seconds (25.6-37.1); PROTHROMBIN TIME 14.5 Seconds (9.8-13.1)
[2017-05-24] MEDS ORDERED: Iohexol 240 100 ML IJ ONE ×2 (17:10)
--- NOTE | 2017-05-24 17:51 | PCM.SURG1 ---
Surgeon's Initial Post Op Note - Surgeon's Notes Surgeon: Wendy Tool Radial Drill Press Set Up Operator: Sanket Pre-Operative Diagnosis: bilateral lower extremity DVTs. s/p acute subdural hematoma Operative Findings: n/a Post-Operative Diagnosis: same Operation Performed: IVC filter placement Specimen/Specimens Removed: n/a Estimated Blood Loss: EBL {In ML}: 5 Date of Surgery/Procedure: 05/24/17 Time of Surgery/Procedure: 17:51
[2017-05-24] MEDS: Insulin Detemir 100 Units/ml Inj SC SCH (21:28)
--- NOTE | 2017-05-25 01:50 | PN ---
ENDOCRINOLOGY FOLLOWUP NOTE DATE: LOCATION: In room 624. SUBJECTIVE: This is an 81-year-old male with recent uncontrolled type 2 insulin-requiring diabetes with extremes of glycemic fluctuations and recent hyperglycemic accelerations and is now being followed closely for metabolic management. His oral intake is quite improved at this time and the latest glucose levels today have ranged from 104 to 194 and 199 mg/dL. The latest chemistry showed a BUN of 35, sodium 142, potassium 4.1, chloride 107, CO2 of 22, glucose 125, and creatinine 2.3. His bedtime glucose was 191 mg/dL. So, at this time, we will continue the modified basal and premixed insulin regimen to allow for dose equilibration and keep him on the Humalog 75/25 given as 50 units before breakfast and 40 units before dinner as ordered. We will continue the basal insulin given as Levemir at 20 units subcutaneously at bedtime daily as given. We will titrate incrementally as indicated to optimize metabolic control. We will follow and advise accordingly. Bianka Peterson MD
--- NOTE | 2017-05-25 05:38 | CON ---
DATE: 05/24/2017 REASON FOR CONSULTATION: Deep vein thrombosis. HISTORY OF PRESENT ILLNESS: Mr. Ritter is an 81-year-old male patient admitted to the hospital on 05/14/2017 for subdural hematoma. The patient underwent evacuation of the hematoma and he is doing fine. He start consciousness and improved neurologically. He has swelling in his legs and some pain. Ultrasound was done for him, which shows deep vein thrombosis. I was consulted to evaluate him, and I saw the patient, he was awake, conscious, and he is not in any distress. He denies any pain or difficulty breathing. No fever. No chills. No other complaints. PAST MEDICAL HISTORY: Subdural hematoma and dementia. PAST SURGICAL HISTORY: Subdural hematoma evacuation. ALLERGIES: NO KNOWN DRUG ALLERGIES. SOCIAL HISTORY: Denies alcohol or drug abuse, nonsmoker male. REVIEW OF SYSTEMS: The patient is conscious, oriented, but he is forgettable. Review of systems is negative for all other systems which is not 100% accurate because of his dementia. PHYSICAL EXAMINATION: GENERAL: The patient awake and conscious. HEENT: No jaundice. No pallor. Normocephalic. NECK: Supple. No mass. ABDOMEN: Soft and flat. No rebound tenderness. EXTREMITIES: Bilateral lower extremities swelling, more on the left side. Good pedal pulses. CARDIOTHORACIC: Sinus rhythm. DIAGNOSTIC DATA: Not detected. ASSESSMENT AND PLAN: An 81-year-old patient status post evacuation of subdural hematoma with extensive deep venous thrombosis. I think the patient is high risk for bleeding as we fully educated him and we should consider insertion of inferior vena cava filter. We will discuss with neurology and see their recommendations and we will discuss with the family explaining the situation and indication for filter and we will see their response to that. Thank you very much for the consultation. Francy Nguyen MD
[2017-05-25] MEDS: Proshield Plus GEL TOP SCH ×3 (05:44→22:17)
[2017-05-25] MEDS: Piperacillin/Tazobact 3.375 GM in Sodium Chloride 0.9% 100 ML IVPB SCH ×4 (05:45→23:22)
[2017-05-25] MEDS: Insulin Lispro (humaLOG) 100 Units/ml Inj SC SCH ×4 (06:30→22:15)
[2017-05-25 07:03] LABS: HEMOGLOBIN 10.8 g/dL (12.0-18.0); MEAN CELL VOLUME 88.3 fl (80.0-94.0); MEAN CORPUSCULAR HEMOGLOBIN 28.8 pg (27.0-31.0); MEAN CORPUSCULAR HGB CONC 32.6 g/dL (33.0-37.0); RBC 3.73 Mil/uL (4.40-5.90); RED CELL DISTRIBUTION WIDTH 16.5 % (11.5-14.5); WHITE BLOOD COUNT 13.2 K/uL (4.8-10.8)
[2017-05-25 07:08] LABS: CALCIUM 8.5 mg/dL (8.4-10.2)
[2017-05-25] MEDS: Insulin Lispro Mix 75/25 100 units/ml (HumaLog) 10ml SC SCH ×2 (07:37→18:15)
[2017-05-25] MEDS: Lactobacillus Acidophilus 500 MU Cap PO SCH ×2 (08:02→18:00)
--- NOTE | 2017-05-25 08:04 | CP.PCM.PN ---
Subjective - Date & Time of Evaluation Date of Evaluation: 05/25/17 Time of Evaluation: 08:01 - Subjective Subjective: SURGERY NOTE FOR DR. BUTLER 81M seen and examined at bedside. Patient doing well, denies pain at surgical site. Objective - Vital Signs/Intake and Output Vital Signs (last 24 hours): Temp Pulse Resp BP Pulse Ox 96.8 F L 105 H 18 99/62 L 96 05/25/17 07:33 05/25/17 07:33 05/25/17 07:33 05/25/17 07:33 05/25/17 07:33 Intake and Output: 05/25/17 05/25/17 06:59 18:59 Intake Total 800 Output Total 1450 Balance -650 - Medications Medications: Current Medications Acetaminophen (Tylenol 325mg Tab) 650 mg PO Q4 PRN PRN Reason: Fever >100.4 F Last Admin: 05/22/17 18:55 Dose: 650 mg Codeine Sulfate (Codeine) 30 mg PO Q4H PRN PRN Reason: Pain, severe (8-10) Digoxin (Lanoxin) 0.25 mg PO DAILY@1400 [facility] Last Admin: 05/24/17 13:29 Dose: 0.25 mg Dimethicone (Proshield Plus Skin Protectant) 1 applic TOP Q8 [facility] Last Admin: 05/25/17 05:44 Dose: 1 applic Heparin Sodium (Porcine) (Heparin) 3,000 units SC Q12 [facility] PRN Reason: Protocol Last Admin: 05/24/17 21:32 Dose: 3,000 units Piperacillin Sod/Tazobactam (Sod 3.375 gm/ Sodium Chloride) 100 mls @ 100 mls/ hr IVPB Q6 [facility] PRN Reason: Protocol Last Admin: 05/25/17 05:45 Dose: 100 mls/hr Insulin Detemir (Levemir) 20 units SC HS [facility] Last Admin: 05/24/17 21:28 Dose: 20 units Insulin Human Lispro (Humalog) 0 units SC ACHS [facility] PRN Reason: Protocol Last Admin: 05/25/17 06:30 Dose: Not Given Insulin Lispro Protam/Lispro Human (Humalog Mix 75/25) 40 units SC ACD [facility] Last Admin: 05/24/17 18:05 Dose: 40 units Insulin Lispro Protam/Lispro Human (Humalog Mix 75/25) 50 units SC ACB [facility] Last Admin: 05/25/17 07:37 Dose: 50 units Lactobacillus Acidophilus (Bacid Acidophilus) 1 cap PO BID [facility] Last Admin: 05/24/17 18:03 Dose: 1 cap Levetiracetam (Keppra) 750 mg PO BID [facility] Last Admin: 05/24/17 18:09 Dose: 750 mg Metoprolol Tartrate (Lopressor) 50 mg PO Q12 [facility] Last Admin: 05/24/17 20:05 Dose: Not Given Pregabalin (Lyrica) 75 mg PO 2200 [facility] Last Admin: 05/24/17 21:18 Dose: 75 mg Tamsulosin HCl (Flomax) 0.4 mg PO HS [facility] Last Admin: 05/24/17 21:18 Dose: 0.4 mg Tramadol HCl (Ultram) 50 mg PO BID PRN PRN Reason: Pain, moderate (4-7) Last Admin: 05/23/17 21:44 Dose: 50 mg - Labs Labs: 05/25/17 06:15 05/25/17 06:15 PT 14.5 Seconds (9.8-13.1) H 05/24/17 15:39 INR 1.3 (0.9-1.2) H 05/24/17 15:39 APTT 27.6 Seconds (25.6-37.1) 05/24/17 15:39 - Constitutional Appears: Well, Non-toxic, No Acute Distress - Respiratory Exam Respiratory Exam: Clear to Ausculation Bilateral, NORMAL BREATHING PATTERN - Cardiovascular Exam Cardiovascular Exam: REGULAR RHYTHM, +S1, +S2 - GI/Abdominal Exam GI & Abdominal Exam: Soft. absent: Distended, Firm, Guarding, Rigid, Tenderness , Rebound - Extremities Exam Additional comments: Site of puncture CDI left leg tender and swollen - Neurological Exam Neurological Exam: Alert, Awake - Skin Skin Exam: Dry, Intact, Normal Color, Warm Assessment and Plan - Assessment and Plan (Free Text) Assessment: 81M s/p IVC filter placement POD1 Plan: Out of bed activity Monitor right leg puncture site No further surgical intervention Further recs discuss with Dr. Wendy Coles, PGY2
--- NOTE | 2017-05-25 08:04 | OP ---
PROCEDURE DATE: 05/24/2017 PREOPERATIVE DIAGNOSIS: Deep vein thrombosis, subdural hematoma. POSTOPERATIVE DIAGNOSIS: Deep vein thrombosis, subdural hematoma. PROCEDURE: 1. Insertion of IVC filter. 2. Venogram of the IVC. Selective catheterization of the renal veins bilaterally. SURGEON: Francy Nguyen MD WHARF TENDER: Dr. Hollins TYPE OF ANESTHESIA: Local anesthesia. COMPLICATIONS: No complication. INDICATION: Mr. Ritter is an 81-year-old male patient presented with subdural hematoma and he underwent evacuation of the hematoma, after the surgery and he is doing fine. Today, he was found to have extensive deep vein thrombosis of lower extremities. Because of the risk of bleeding, the patient could not have full anticoagulation, discussed Immunology and Medicine and decision was made to insert the IVC filter. Risks and benefits were explained to the family. Patient under local anesthesia 4 hours after the lunch. DESCRIPTION OF PROCEDURE: The patient came to operating room. He was lying in a supine position. He was prepped and draped in usual sterile fashion. Lidocaine 1% used to infiltrate right groin, ultrasound-guided access on the right common femoral vein done using micropuncture access needle. Wire was inserted through the needle, was exchanged to micropuncture sheath. Glidewire was inserted through the sheath and to thoracic superior vena cava. The micropuncture sheath was removed and 6-Divehi sheath was inserted over the wire . Venogram was done through the sheath, I was able to visualized one renal vein only and I obtained Cobra catheter C2 and I was able to select the renal veins bilaterally and marked them on the screen and I pulled the catheter below the level of renal vein. The sheath was readjusted below the level of renal vein also. The catheter and the wire was removed and filter was inserted through the sheath and at the desirable level we did deployed. No complication. The patient tolerated the procedure well and he will be transferred to recovery and after that back to the floor. No complication during the procedure. Francy Nguyen MD
--- NOTE | 2017-05-25 13:16 | PSY.TMCNF ---
Nursing - Vital Signs Vital Signs (Last 8 hours): Vital Signs 05/25/17 05/25/17 05/25/17 07:33 08:05 09:00 Temperature 96.8 F L 96.8 F L Pulse Rate 105 H 105 H Respiratory 18 18 Rate Blood Pressure 99/62 L 99/62 L 99/62 L O2 Sat by Pulse 96 Oximetry Pain: 5 - Precautions: Precautions: Fall Prevention, Aspiration, Pressure Ulcer - Medications/Other Issues Comment: -(+) DVT BLE, S/P IVC FILTER INSERTION 05/24. ON HEAPRIN 3000 UNITS SC Q12H PER NEURO ORDER. - STILL ON IV ABT UNASYN Q6H IVPB - Consults Comment: DR. LOFTON, DR. QUICK, DR. BUTLER AND DR. KEITA - Skin Incision Site: Right side of the head Dressing Status: Clean, Dry, Intact Incision: Apolinar Intact Incision Line Treatment: Cleanse with NS and cover with dry dressing. - Wound Medial Sacrum Wound Type: Moisture Associated Skin Damage Wound Bed Greatest Portion: Pale [place] Periwound: Reddened Wound Drainage Amount: None Wound General Appearance: Open to air Wound Dressing Status: Open to air - Toileting Toileting: Dependent - Bladder Management Bladder Pattern: Retention Voiding Method: Indwelling Catheter Bladder Management: Dependent Frequency of Accidents: 0 - Bowel Management Bowel Pattern: Diarrhea, Incontinent Bowel Management: Dependent Frequency of Accidents: >5 - Transfers Transfers: Maximal Assistance - ADL's ADL's: Dependent - Pain Management Comments: CODEINE PRN, - Patient/Family Teaching Comments: CARE POST SDH EVACUATION, HAND WASHING AND SAFETY PRECAUTIONS - Goals/Time Frame Comments: PER MULTIDISCIPLINARY CARE PLAN AND GOALS - Provider Provider: MG FINKN RN CRRN Physical Therapy - Bed Mobility Bed Mobility: Verbal Cues, Moderate Assistance - Transfers Wheelchair to Mat: Maximum Assistance Sit to Stand: Moderate Assistance - Ambulation Level of Assistance: Moderate Assistance Distance (ft.): 20 Assistive Devices: Rolling Walker - Stair Negotiation Stairs: Level of Assistance: Not Tested - Standing Balance Static Stand: Contact Guard Assist Dynamic Stand: Minimal Assistance, Moderate Assistance - Pain Pain (assessed during therapy session): 5 Management Techniques: Medication Comment: LLE at times - Insight/Carryover Insight/Carryover: Poor - Patient/Family Education Comment: Pt education provided for increased safety awareness and proper techniques during functional mobility skills. - Assessment/Plan Assessment: Mr. Ritter was re-admitted to acute rehab 05/17/17 s/p interrupted stay due to new onset seizures 05/16 when undergoing acute IP rehab . Pt initally presented at same level of self care, transfers and mobility as on 05/15. However-due to new onset of UTI 05/19 as well as discovery of LLE DVT on 05/24 pt's status has since declined. Pt requires mod/max A for transfers, max A for lb self care/toileting and demoes P motivation/endurance during activity as well as max cueing/encouragment. Pt also has been experiencing new onset of diarrhea 05/20-05/21 impacting patient's participation. Pt is currently s/p iVC filter Pt Barriers to progress incldue: , impaired communication/ cognition, poor safety awareness LLE pain and fatigue. OT recommends skilled IP occupational therapy services 5-6x per week to maximize independence . OT recommends pt to be d/[place] with 24 hour supervision/assist at home pending progress and family support vs GAMA due to poor cognition. [ End ] - Goals Timeframe: 1 week Goals: Mod I transfers/mobility. min A lb self care. supervision ub self care. mod I toileting. improve act tolerance >5 mins. improve B UE strength - Provider License Number: [id number] Occupational Therapy - Arousal/Attention/Orientation Patient Orientation: Person, Place - ADL/IADL Self Feeding: Supervision, Verbal Cues, Set-up Help Grooming: Verbal Cues, Set-up Help Bathing-Upper Extremity: Minimal Assistance Dressing-Upper Extremity: Moderate Assistance Dressing-Lower Extremity: Maximum Assistance Comment: +duque catheter - Sitting Balance Static Sitting: Supervision Dynamic Sitting: Contact Guard Assist - Transfers Wheelchair to Bed Transfers: Verbal Cues, Moderate Assistance, Maximum Assistance Toilet Transfers: Moderate Assistance, Maximum Assistance Comment: tub transfer tba - Upper Extremity Status Right Upper Extremity Comment: AROM R shoulder flexion approx 90 degrees Left Upper Extremity Comment: pain with movement L shoulder. AROM 60 degrees - Pain Pain (assessed during therapy session): 5 Alleviating Techniques: Medication Comment: LLE at times - Insight/Carryover Insight/Carryover: Poor - Patient/Family Education Comment: Pt education provided for increased safety awareness and proper techniques during functional mobility skills. - Assessment/Plan Assessment: Mr. Ritter was re-admitted to acute rehab 05/17/17 s/p interrupted stay due to new onset seizures 05/16 when undergoing acute IP rehab . Pt initally presented at same level of self care, transfers and mobility as on 05/15. However-due to new onset of UTI 05/19 as well as discovery of LLE DVT on 05/24 pt's status has since declined. Pt requires mod/max A for transfers, max A for lb self care/toileting and demoes P motivation/endurance during activity as well as max cueing/encouragment. Pt also has been experiencing new onset of diarrhea 05/20-05/21 impacting patient's participation. Pt is currently s/p iVC filter Pt Barriers to progress incldue: , impaired communication/ cognition, poor safety awareness LLE pain and fatigue. OT recommends skilled IP occupational therapy services 5-6x per week to maximize independence . OT recommends pt to be d/[place] with 24 hour supervision/assist at home pending progress and family support vs GAMA due to poor cognition. [ End ] - Goals Timeframe: 1 week Goals: Mod I transfers/mobility. min A lb self care. supervision ub self care. mod I toileting. improve act tolerance >5 mins. improve B UE strength - Provider Therapist: CELESTINO Candelario/Mansi License Number: [id number] Speech Therapy - Consult Information Patient on Program: Yes Medical Diagnosis: SDH s/p evacuation Treatment Diagnosis: moderate cognitive deficits - Assessment Problem Solving Impairment: Moderate Memory Impairment: Moderate - Plan Assessment: Mr. Ritter was re-admitted to acute rehab 05/17/17 s/p interrupted stay due to new onset seizures 05/16 when undergoing acute IP rehab . Pt initally presented at same level of self care, transfers and mobility as on 05/15. However-due to new onset of UTI 05/19 as well as discovery of LLE DVT on 05/24 pt's status has since declined. Pt requires mod/max A for transfers, max A for lb self care/toileting and demoes P motivation/endurance during activity as well as max cueing/encouragment. Pt also has been experiencing new onset of diarrhea 05/20-05/21 impacting patient's participation. Pt is currently s/p iVC filter Pt Barriers to progress incldue: , impaired communication/ cognition, poor safety awareness LLE pain and fatigue. OT recommends skilled IP occupational therapy services 5-6x per week to maximize independence . OT recommends pt to be d/leland with 24 hour supervision/assist at home pending progress and family support vs GAMA due to poor cognition. [ End ] - Provider Therapist: Tana Adhikari License Number: [id number] Recreational Therapy - Participation Participation: Monitors His/Her Own Leisure Time - Attendance Attendance: Daily - Activities Leisure Activities: Television - Socialization Level of Socialization: Initiates/interacts freely with care givers and peer - Assessment Assessment/Plan: Mr. Ritter was re-admitted to acute rehab 05/17/17 s/p interrupted stay due to new onset seizures 05/16 when undergoing acute IP rehab . Pt initally presented at same level of self care, transfers and mobility as on 05/15. However-due to new onset of UTI 05/19 as well as discovery of LLE DVT on 05/24 pt's status has since declined. Pt requires mod/max A for transfers, max A for lb self care/toileting and demoes P motivation/endurance during activity as well as max cueing/encouragment. Pt also has been experiencing new onset of diarrhea 05/20-05/21 impacting patient's participation. Pt is currently s/p iVC filter Pt Barriers to progress incldue: , impaired communication/ cognition, poor safety awareness LLE pain and fatigue. OT recommends skilled IP occupational therapy services 5-6x per week to maximize independence . OT recommends pt to be d/[place] with 24 hour supervision/assist at home pending progress and family support vs GAMA due to poor cognition. [ End ] - Provider Therapist: Emy Santana, #[id number] Nutrition - Current Diet Current Diet/ Supplement/ Feedings: pureed heart healthy diet glucerna shake 8 ounces 1 per day - Appetite Percent Meal Consumed: 75-100% - Comments Comments: CARE POST SDH EVACUATION, HAND WASHING AND SAFETY PRECAUTIONS - Assessment/Goals/Time Frame Assessment/Goals/Time Frame: -(+) DVT BLE, S/P IVC FILTER INSERTION 05/24. ON HEAPRIN 3000 UNITS SC Q12H PER NEURO ORDER. - STILL ON IV ABT UNASYN Q6H IVPB - Provider Provider: Yolanda Padilla RD Case Management - Psychosocial Assessment Support Systems: Dixon Rogers (neighbor)- [phone]. Torsten Torres ( nephew)- [phone] Psychological Interventions/Needs: Patient is alert with intermittent confusion Discharge Concerns: Patient lives alone and will require 24 hour supervison/ assistance at home Patient/Family Meeting: CM met with patient and rehab team Intervention/Goal/Outcome:: 1. Plan: GAMA as patient confused and with limited support at home, CM to contact family to arrange/coordinate and refer to GAMA appropriately. 2. continued emotional support. 3. tentative discharge date: 2017. - Discharge Plan Discharge Plan: Subacute care - Provider Provider: KURT Vanegas, ACCESS MANAGER License Number: [id number] Rehabilitation Plan - Treatment Plan Treatment Plan: Physical Therapy, Occupational Therapy, Speech, Dietary, Patient /Family Education - Discharge Plan Estimated Date of Discharge: 05/30/17 Discharge to: Subacute
[2017-05-25] MEDS: Digoxin 250 mcg (0.25 mg) Tab PO SCH (13:55)
--- NOTE | 2017-05-25 15:47 | PN ---
DATE: ENDO FOLLOWUP NOTE LOCATION: Room 624. SUBJECTIVE: This is a 81-year-old male with recent uncontrolled type 2 insulin-requiring diabetes, now undergoing acute rehabilitation therapy following an acute right subdural hematoma with subsequent craniotomy at the [facility] and is now being followed closely here in the rehab unit for metabolic management. His glycemic levels are fluctuating but much improved at this time and the latest glucose levels have ranged from 118-200 and 217 mg/dL. The latest chemistry showed BUN of 33, sodium of 140, potassium of 4.2, chloride of 108, CO2 of 19, glucose of 133, and creatinine of 2.4. So at this time, we will continue the modified basal and premixed insulin regimen as ordered with Levemir given as 20 units subcu at bedtime daily as ordered. We will continue the premixed insulin regimen with Humalog 75/25 given as 50 units before breakfast and 40 units before dinner as ordered. We will titrate incrementally as indicated to optimize metabolic control. We will follow. Bianka Peterson MD
--- NOTE | 2017-05-25 19:48 | CP.PCM.PN ---
Subjective - Date & Time of Evaluation Date of Evaluation: 05/25/17 Time of Evaluation: 19:44 - Subjective Subjective: Patient seen in the room aware that had a GFF placed and post op stable had +DVT after nursing spoke with neurosurgeon permission was given to remove erin and suture I performed this without incidence. Well tolerated will wait one day more before getting area wet continue PT/OT and speech Objective - Vital Signs/Intake and Output Vital Signs (last 24 hours): Temp Pulse Resp BP Pulse Ox 96.8 F L 105 H 18 99/62 L 96 05/25/17 09:00 05/25/17 09:00 05/25/17 09:00 05/25/17 09:00 05/25/17 07:33 Intake and Output: 05/25/17 05/26/17 18:59 06:59 Intake Total 1040 Output Total 1350 Balance -310 - Medications Medications: Current Medications Acetaminophen (Tylenol 325mg Tab) 650 mg PO Q4 PRN PRN Reason: Fever >100.4 F Last Admin: 05/22/17 18:55 Dose: 650 mg Codeine Sulfate (Codeine) 30 mg PO Q4H PRN PRN Reason: Pain, severe (8-10) Digoxin (Lanoxin) 0.25 mg PO DAILY@1400 [facility] Last Admin: 05/25/17 13:55 Dose: 0.25 mg Dimethicone (Proshield Plus Skin Protectant) 1 applic TOP Q8 [facility] Last Admin: 05/25/17 13:55 Dose: 1 applic Heparin Sodium (Porcine) (Heparin) 3,000 units SC Q12 [facility] PRN Reason: Protocol Last Admin: 05/25/17 08:04 Dose: 3,000 units Piperacillin Sod/Tazobactam (Sod 3.375 gm/ Sodium Chloride) 100 mls @ 100 mls/ hr IVPB Q6 [facility] PRN Reason: Protocol Last Admin: 05/25/17 18:16 Dose: 100 mls/hr Insulin Detemir (Levemir) 20 units SC HS [facility] Last Admin: 05/24/17 21:28 Dose: 20 units Insulin Human Lispro (Humalog) 0 units SC ACHS [facility] PRN Reason: Protocol Last Admin: 05/25/17 18:14 Dose: Not Given Insulin Lispro Protam/Lispro Human (Humalog Mix 75/25) 40 units SC ACD [facility] Last Admin: 05/25/17 18:15 Dose: 40 units Insulin Lispro Protam/Lispro Human (Humalog Mix 75/25) 50 units SC ACB [facility] Last Admin: 05/25/17 07:37 Dose: 50 units Lactobacillus Acidophilus (Bacid Acidophilus) 1 cap PO BID [facility] Last Admin: 05/25/17 18:00 Dose: 1 cap Levetiracetam (Keppra) 750 mg PO BID [facility] Last Admin: 05/25/17 18:00 Dose: 750 mg Metoprolol Tartrate (Lopressor) 50 mg PO Q12 [facility] Last Admin: 05/25/17 08:05 Dose: Not Given Pregabalin (Lyrica) 75 mg PO 2200 [facility] Last Admin: 05/24/17 21:18 Dose: 75 mg Tamsulosin HCl (Flomax) 0.4 mg PO HS [facility] Last Admin: 05/24/17 21:18 Dose: 0.4 mg Tramadol HCl (Ultram) 50 mg PO BID PRN PRN Reason: Pain, moderate (4-7) Last Admin: 05/23/17 21:44 Dose: 50 mg - Labs Labs: 05/25/17 06:15 05/25/17 06:15 PT 14.5 Seconds (9.8-13.1) H 05/24/17 15:39 INR 1.3 (0.9-1.2) H 05/24/17 15:39 APTT 27.6 Seconds (25.6-37.1) 05/24/17 15:39
[2017-05-25] MEDS: Insulin Detemir 100 Units/ml Inj SC SCH (22:16)
[2017-05-26] MEDS: Piperacillin/Tazobact 3.375 GM in Sodium Chloride 0.9% 100 ML IVPB SCH ×3 (05:12→17:29)
[2017-05-26] MEDS: Proshield Plus GEL TOP SCH ×3 (05:13→22:11)
[2017-05-26] MEDS: Insulin Lispro (humaLOG) 100 Units/ml Inj SC SCH ×4 (06:38→22:17)
[2017-05-26] MEDS: Insulin Lispro Mix 75/25 100 units/ml (HumaLog) 10ml SC SCH ×2 (08:00→17:28)
[2017-05-26] MEDS: Lactobacillus Acidophilus 500 MU Cap PO SCH ×2 (08:36→17:25)
--- NOTE | 2017-05-26 11:34 | CP.PCM.PN ---
Subjective - Date & Time of Evaluation Date of Evaluation: 05/26/17 Time of Evaluation: 11:34 - Subjective Subjective: Mr. Ritter was seen and examined at the therapy room. He is awake with episode of forgetfulness. He is able to state place, time, and person. He denies any headache, dizziness, lightheadedness, nausea, or vomiting. He is able to follow simple commands. He is currently on antibiotic therapy for urinary infection. He is complaining of pain in his left lower extremities, no redness, able to do flexion and extension. Venous duplex showed a left leg DVT, vascular consult was done and heparin anti-coagulant was started.He further state of going for a procedure in his groin.There was no untoward events overnight. Objective - Vital Signs/Intake and Output Vital Signs (last 24 hours): Temp Pulse Resp BP Pulse Ox 97.9 F 98 H 21 123/75 96 05/26/17 08:36 05/26/17 08:36 05/26/17 08:36 05/26/17 08:36 05/26/17 08:36 Intake and Output: 05/26/17 05/26/17 06:59 18:59 Intake Total 700 Output Total 950 Balance -250 - Medications Medications: Current Medications Acetaminophen (Tylenol 325mg Tab) 650 mg PO Q4 PRN PRN Reason: Fever >100.4 F Last Admin: 05/22/17 18:55 Dose: 650 mg Codeine Sulfate (Codeine) 30 mg PO Q4H PRN PRN Reason: Pain, severe (8-10) Digoxin (Lanoxin) 0.25 mg PO DAILY@1400 [facility] Last Admin: 05/25/17 13:55 Dose: 0.25 mg Dimethicone (Proshield Plus Skin Protectant) 1 applic TOP Q8 [facility] Last Admin: 05/26/17 05:13 Dose: 1 applic Heparin Sodium (Porcine) (Heparin) 3,000 units SC Q12 [facility] PRN Reason: Protocol Last Admin: 05/26/17 08:35 Dose: 3,000 units Piperacillin Sod/Tazobactam (Sod 3.375 gm/ Sodium Chloride) 100 mls @ 100 mls/ hr IVPB Q6 [facility] PRN Reason: Protocol Last Admin: 05/26/17 05:12 Dose: 100 mls/hr Insulin Detemir (Levemir) 20 units SC HS [facility] Last Admin: 05/25/17 22:16 Dose: 20 units Insulin Human Lispro (Humalog) 0 units SC ACHS [facility] PRN Reason: Protocol Last Admin: 05/26/17 06:38 Dose: Not Given Insulin Lispro Protam/Lispro Human (Humalog Mix 75/25) 40 units SC ACD [facility] Last Admin: 05/25/17 18:15 Dose: 40 units Insulin Lispro Protam/Lispro Human (Humalog Mix 75/25) 50 units SC ACB [facility] Last Admin: 05/26/17 08:00 Dose: 50 units Lactobacillus Acidophilus (Bacid Acidophilus) 1 cap PO BID [facility] Last Admin: 05/26/17 08:36 Dose: 1 cap Levetiracetam (Keppra) 750 mg PO BID [facility] Last Admin: 05/26/17 08:34 Dose: 750 mg Metoprolol Tartrate (Lopressor) 50 mg PO Q12 [facility] Last Admin: 05/26/17 08:36 Dose: 50 mg Pregabalin (Lyrica) 75 mg PO 2200 [facility] Last Admin: 05/25/17 22:19 Dose: 75 mg Tamsulosin HCl (Flomax) 0.4 mg PO HS [facility] Last Admin: 05/25/17 22:13 Dose: 0.4 mg Tramadol HCl (Ultram) 50 mg PO BID PRN PRN Reason: Pain, moderate (4-7) Last Admin: 05/23/17 21:44 Dose: 50 mg - Labs Labs: 05/25/17 06:15 05/25/17 06:15 PT 14.5 Seconds (9.8-13.1) H 05/24/17 15:39 INR 1.3 (0.9-1.2) H 05/24/17 15:39 APTT 27.6 Seconds (25.6-37.1) 05/24/17 15:39 - Constitutional Appears: No Acute Distress - Head Exam Head Exam: NORMAL INSPECTION - Neurological Exam Neurological Exam: Alert, Awake Neuro motor strength exam: Left Upper Extremity: 4, Right Upper Extremity: 5, Left Lower Extremity: 4, Right Lower Extremity: 5 Additional comments: Neurological unchanged from previous examination. Assessment and Plan (1) Subdural hematoma Assessment & Plan: Case discussed with Dr. Jalloh, continue all current medical, physical, occupational, and speech therapies. Status: Acute (2) Seizures Assessment & Plan: Case discussed with Dr. Jalloh, continue all current medical regimen including AED. Status: Acute (3) DVT (deep venous thrombosis) Assessment & Plan: Case discussed with Dr. Jalloh, continue anti-coagulant therapy, will repeat venous doppler in a week to determine changing heparin SC to po anticoagulant. Monitor right groin area for s/s of hematoma or infection. Heparin dose will remain low in comparison from standard dose due to patient hx. of cerebral hemorrhage/ hematoma. Status: Acute
--- NOTE | 2017-05-26 12:34 | CP.PCM.PN ---
Subjective - Date & Time of Evaluation Date of Evaluation: 05/26/17 Time of Evaluation: 10:00 - Subjective Subjective: Patient seen and examined. Appeared more lucid. Complained of pain on left leg which get relieved with pain medication. Objective - Vital Signs/Intake and Output Vital Signs (last 24 hours): Temp Pulse Resp BP Pulse Ox 97.9 F 74 21 123/75 99 05/26/17 08:36 05/26/17 12:15 05/26/17 08:36 05/26/17 08:36 05/26/17 12:15 Intake and Output: 05/26/17 05/26/17 06:59 18:59 Intake Total 700 Output Total 950 Balance -250 - Medications Medications: Current Medications Acetaminophen (Tylenol 325mg Tab) 650 mg PO Q4 PRN PRN Reason: Fever >100.4 F Last Admin: 05/22/17 18:55 Dose: 650 mg Codeine Sulfate (Codeine) 30 mg PO Q4H PRN PRN Reason: Pain, severe (8-10) Digoxin (Lanoxin) 0.25 mg PO DAILY@1400 [facility] Last Admin: 05/25/17 13:55 Dose: 0.25 mg Dimethicone (Proshield Plus Skin Protectant) 1 applic TOP Q8 [facility] Last Admin: 05/26/17 05:13 Dose: 1 applic Heparin Sodium (Porcine) (Heparin) 3,000 units SC Q12 [facility] PRN Reason: Protocol Last Admin: 05/26/17 08:35 Dose: 3,000 units Piperacillin Sod/Tazobactam (Sod 3.375 gm/ Sodium Chloride) 100 mls @ 100 mls/ hr IVPB Q6 [facility] PRN Reason: Protocol Last Admin: 05/26/17 05:12 Dose: 100 mls/hr Insulin Detemir (Levemir) 20 units SC HS [facility] Last Admin: 05/25/17 22:16 Dose: 20 units Insulin Human Lispro (Humalog) 0 units SC ACHS [facility] PRN Reason: Protocol Last Admin: 05/26/17 12:23 Dose: Not Given Insulin Lispro Protam/Lispro Human (Humalog Mix 75/25) 40 units SC ACD [facility] Last Admin: 05/25/17 18:15 Dose: 40 units Insulin Lispro Protam/Lispro Human (Humalog Mix 75/25) 50 units SC ACB [facility] Last Admin: 05/26/17 08:00 Dose: 50 units Lactobacillus Acidophilus (Bacid Acidophilus) 1 cap PO BID [facility] Last Admin: 05/26/17 08:36 Dose: 1 cap Levetiracetam (Keppra) 750 mg PO BID [facility] Last Admin: 05/26/17 08:34 Dose: 750 mg Metoprolol Tartrate (Lopressor) 50 mg PO Q12 [facility] Last Admin: 05/26/17 08:36 Dose: 50 mg Pregabalin (Lyrica) 75 mg PO 2200 [facility] Last Admin: 05/25/17 22:19 Dose: 75 mg Tamsulosin HCl (Flomax) 0.4 mg PO HS [facility] Last Admin: 05/25/17 22:13 Dose: 0.4 mg Tramadol HCl (Ultram) 50 mg PO BID PRN PRN Reason: Pain, moderate (4-7) Last Admin: 05/23/17 21:44 Dose: 50 mg - Labs Labs: 05/25/17 06:15 05/25/17 06:15 PT 14.5 Seconds (9.8-13.1) H 05/24/17 15:39 INR 1.3 (0.9-1.2) H 05/24/17 15:39 APTT 27.6 Seconds (25.6-37.1) 05/24/17 15:39 - Constitutional Appears: No Acute Distress - Head Exam Head Exam: ATRAUMATIC - Eye Exam Eye Exam: absent: Scleral icterus - ENT Exam ENT Exam: Mucous Membranes Moist - Neck Exam Neck Exam: absent: Meningismus - Respiratory Exam Respiratory Exam: absent: Rales, Rhonchi, Wheezes, Respiratory Distress - Cardiovascular Exam Cardiovascular Exam: REGULAR RHYTHM, +S1, +S2 - GI/Abdominal Exam GI & Abdominal Exam: Soft. absent: Tenderness - Rectal Exam Rectal Exam: Deferred - Neurological Exam Neurological Exam: Alert, Oriented x3 - Psychiatric Exam Psychiatric exam: Normal Affect - Skin Skin Exam: Dry, Intact Assessment and Plan - Assessment and Plan (Free Text) Assessment: 81 yo male with history of AFib, DM2 and HTN was admitted at [facility] because of left sided weakness and left upper extremity tremor. CT scan of the head showed Acute Right Subdural Hematoma with mass effect and midline shift. Neurosurgical consult were made and patient was sent to OR for right frontal craniotomy and evacuation of hematoma. Patient was sent to [facility] Acute Rehab for continuation of therapy. 1. Subdural Hematoma post craniotomy with hematoma evacuation more alert and oriented today 2. AFib rate controlled continue Digoxin and Metoprolol anticoagulant DC because of subdural hematoma 3. HTN BP stable but sometimes gets on the low side continue Metoprolol 50mg PO BID (hold for SBP <100) 4. DM2 BS controlled Insulin Lispro Mix 75/25 50 units ACB Insulin Lispro Mix 75/25 40 units ACD HgA1C: 9.[address] with Dr Nicholas jarvis 5. BPH continue Flomax 0.4mg PO daily unable to DC duque catheter because of urinary retention urology consult with Dr Sharp 6. DVT, bilateral lower extremities but more extensive on the left had IVC filter put in on 05/24 complained of pain on the left leg Heparin 3000 units q 12hrs is not even enough for prophylaxis hematology consult with Dr Elder 7. UTI urine culture grew E Coli susceptible to Zosyn continue Zosyn 3.375gm IV q 6hrs 8. CKD acute on CKD BUN/Creat: 33/2.[address] Hendricks
[2017-05-26] MEDS: Digoxin 250 mcg (0.25 mg) Tab PO SCH (13:57)
--- NOTE | 2017-05-26 16:50 | PN ---
DATE: ENDO FOLLOWUP NOTE LOCATION: Room 624. SUBJECTIVE: This is an 81-year-old male with recent right craniotomy for a subdural hematoma and transferred here for acute rehabilitation therapy and is being followed closely now for metabolic management because of recent hyperglycemic accelerations as noted thereof. His oral intake is variable, but improved. The latest chemistry showed BUN of 33, sodium of 140, potassium of 4.2, chloride of 108, CO2 of 90, glucose of , and creatinine of 2.4. The glucose levels low normal ranges from 65 to 70 and 174 mg/dL. So at this time, we will modify once again his basal and premixed insulin regimen and lower the premixed Humalog 75/25 given as 40 units subcu a.c. breakfast as ordered. We will lower the evening dosing of Humalog 75/25 to 30 units a.c. dinner to start today as ordered. We will titrate incrementally as indicated to optimize metabolic control. We will obtain serial chemistries and supplement accordingly as needed. Moreover, we will continue the basal insulin given as Levemir at 20 units subcu at bedtime daily as given. We will titrate incrementally as indicated to optimize metabolic control. We will continue also the basal insulin given as Levemir at 20 units subcutaneous at bedtime daily as given. We will continue the low-dose correction scale using Humalog insulin as ordered. We will follow and advice accordingly. Bianka Peterson MD
[2017-05-26] MEDS: Insulin Detemir 100 Units/ml Inj SC SCH (22:18)
[2017-05-27] MEDS: Piperacillin/Tazobact 3.375 GM in Sodium Chloride 0.9% 100 ML IVPB SCH ×5 (00:09→23:38)
[2017-05-27] MEDS: Proshield Plus GEL TOP SCH ×3 (06:27→21:53)
[2017-05-27] MEDS: Insulin Lispro (humaLOG) 100 Units/ml Inj SC SCH ×4 (06:38→21:49)
--- NOTE | 2017-05-27 08:09 | CP.PCM.CON ---
History of Present Illness - History of Present Illness History of Present Illness: NEPHROLOGY CONSULT Consult for ELYSSA HPI: 81 w/ pmh of DM, HTN, AFib, likely CKD that [facility] w/ stroke and found to have subdural hematoma. He subsequnetly underwent carniotomy. He was transferred to rehab for further eval. In rehab, his course has been complicated by UTI and DVT requiring IVC filter placement. his cr over the last several days has been trending up from a b/l cr of upper 1's presumably hx of CKD from dm/htn. It does not appear that he has received any IV contrast - except for possibly during the IVC filter placement. He is on zosyn. He has urinary retention for which he has a duque cathether placement. ROS: a full detailed ROS is negative except as in my hpi pmh: DM, HTN, AFib, Subdural hematoma, CKD III famhx: no esrd sochx: no active smoke etoh ivdu meds: as below all:nkda pe: vs as below gen: nad sclera: anicteric op: clear neck: supple cv: +s1+s2 lungs: cta abd: soft ext: no edema neuro: follows commands psych: nml affect skin: healing wound on cranium labs and imaging reviewed imp: arf / ckd III/ subdural hematoma/ uti / anemia / hypotension / diabetic kideny disease/ dvt/ acidosis plan: ELYSSA - ddx - ? prerenal - has been mildly hypotensive w/ bp dipping into the 90' at points. Would suggest holding metoprolol or reducing the dose and allow bp to be closer to 130 range systolic Abx related - was started on zosyn 05/22 - ? AIN ? ATN appears that cr began to increase after that point. If possible could consider switch from zosyn to merrem if he still needs abx for uti - he is on day 6 it appears. Will reroder UA, urine lytes and upcr - initial ua had 4 + protein dm per pyour care ckd likely dm/thn baseline monitor h and h thank you for this interesting consult Past Patient History - Infectious Disease Hx of Infectious Diseases: None - Tetanus Immunizations Tetanus Immunization: Unknown - Past Social History Smoking Status: Never Smoked Alcohol: None Home Situation {Lives}: Alone - CARDIAC Hx Cardiac Disorders: Yes Hx Congestive Heart Failure: Yes Hx Hypertension: Yes - PULMONARY Hx Chronic Obstructive Pulmonary Disease (COPD): Yes - NEUROLOGICAL Hx Neurological Disorder: No - HEENT Hx HEENT Problems: Yes Hx Cataracts: Yes Hx Glaucoma: Yes - RENAL Hx Chronic Kidney Disease: No - ENDOCRINE/METABOLIC Hx Diabetes Mellitus Type 2: Yes - HEMATOLOGICAL/ONCOLOGICAL Hx Blood Transfusions: Yes (ffp) Hx Blood Transfusion Reaction: No - INTEGUMENTARY Hx Dermatological Problems: No - MUSCULOSKELETAL/RHEUMATOLOGICAL Hx Falls: No - GASTROINTESTINAL Hx Gastrointestinal Disorders: Yes Hx Gastroesophageal Reflux: Yes - GENITOURINARY/GYNECOLOGICAL Other/Comment: prostate sx - PSYCHIATRIC Hx Substance Use: No - SURGICAL HISTORY Hx Surgeries: Yes - ANESTHESIA Hx Anesthesia Reactions: No Hx Malignant Hyperthermia: No Meds Allergies/Adverse Reactions: Allergies Allergy/AdvReac Type Severity Reaction Status Date / Time No Known Allergies Allergy Verified 05/14/17 14:25 - Medications Medications: Current Medications Acetaminophen (Tylenol 325mg Tab) 650 mg PO Q4 PRN PRN Reason: Fever >100.4 F Last Admin: 05/22/17 18:55 Dose: 650 mg Codeine Sulfate (Codeine) 30 mg PO Q4H PRN PRN Reason: Pain, severe (8-10) Digoxin (Lanoxin) 0.25 mg PO DAILY@1400 [facility] Last Admin: 05/26/17 13:57 Dose: 0.25 mg Dimethicone (Proshield Plus Skin Protectant) 1 applic TOP Q8 [facility] Last Admin: 05/27/17 06:27 Dose: 1 applic Heparin Sodium (Porcine) (Heparin) 3,000 units SC Q12 [facility] PRN Reason: Protocol Last Admin: 05/26/17 22:12 Dose: 3,000 units Piperacillin Sod/Tazobactam (Sod 3.375 gm/ Sodium Chloride) 100 mls @ 100 mls/ hr IVPB Q6 [facility] PRN Reason: Protocol Last Admin: 05/27/17 06:29 Dose: 100 mls/hr Insulin Detemir (Levemir) 20 units SC HS [facility] Last Admin: 05/26/17 22:18 Dose: 20 units Insulin Human Lispro (Humalog) 0 units SC ACHS [facility] PRN Reason: Protocol Last Admin: 05/27/17 06:38 Dose: Not Given Insulin Lispro Protam/Lispro Human (Humalog Mix 75/25) 40 units SC ACB [facility] Insulin Lispro Protam/Lispro Human (Humalog Mix 75/25) 30 units SC ACD [facility] Last Admin: 05/26/17 17:28 Dose: 30 units Lactobacillus Acidophilus (Bacid Acidophilus) 1 cap PO BID [facility] Last Admin: 05/26/17 17:25 Dose: 1 cap Levetiracetam (Keppra) 750 mg PO BID [facility] Last Admin: 05/26/17 17:28 Dose: 750 mg Metoprolol Tartrate (Lopressor) 50 mg PO Q12 [facility] Last Admin: 05/26/17 22:02 Dose: 50 mg Pregabalin (Lyrica) 75 mg PO 2200 [facility] Last Admin: 05/26/17 22:06 Dose: 75 mg Tamsulosin HCl (Flomax) 0.4 mg PO HS [facility] Last Admin: 05/26/17 22:02 Dose: 0.4 mg Tramadol HCl (Ultram) 50 mg PO BID PRN PRN Reason: Pain, moderate (4-7) Last Admin: 05/23/17 21:44 Dose: 50 mg Results - Vital Signs Recent Vital Signs: Last Vital Signs Temp 97.9 F 05/26/17 19:52 Pulse 100 H 05/26/17 22:02 Resp 20 05/26/17 19:52 BP 102/66 05/26/17 22:02 Pulse Ox 99 05/26/17 19:52 - Labs Result Diagrams: 05/25/17 06:15 05/25/17 06:15 Labs: Laboratory Results - last 24 hr 05/26/17 05/26/17 05/26/17 12:19 15:51 21:08 POC Glucose (mg/dL) 65 117 H 122 H 05/27/17 05/27/17 05:21 06:42 POC Glucose (mg/dL) 58 L 104
[2017-05-27] MEDS: Lactobacillus Acidophilus 500 MU Cap PO SCH ×2 (08:13→17:20)
[2017-05-27] MEDS: Insulin Lispro Mix 75/25 100 units/ml (HumaLog) 10ml SC SCH ×2 (08:58→17:20)
[2017-05-27 10:07] LABS: SQUAMOUS EPITHIAL < 1 /hpf (0-5); URINE BILIRUBIN NEGATIVE (NEGATIVE); URINE BLOOD SMALL (NEGATIVE); URINE CLARITY SLIGHTY-CLOUDY (Clear); URINE COLOR YELLOW (YELLOW); URINE GLUCOSE (UA) NEG (Normal); URINE HYALINE CAST 0-2 /hpf (0-2); URINE LEUKOCYTE ESTERASE NEG Leu/uL (Negative); URINE PROTEIN 30 mg/dL (NEGATIVE); URINE UROBILINOGEN 0.2-1.0 mg/dL (0.2-1.0)
[2017-05-27 10:08] LABS: URINE AMORPHOUS SEDIMENT SMALL /ul (<OCC); URINE BACTERIA RARE (<OCC)
[2017-05-27 10:55] LABS: CREATININE, RANDOM URINE 69.8 mg/dL
--- NOTE | 2017-05-27 11:35 | CP.PCM.PN ---
Subjective - Date & Time of Evaluation Date of Evaluation: 05/27/17 Time of Evaluation: 11:33 - Subjective Subjective: Mr. Ritter was seen and examined at the therapy room. He is awake with episode of forgetfulness. He is able to state place, time, and person. He denies any headache, dizziness, lightheadedness, nausea, or vomiting. He is able to follow simple commands. He is currently on antibiotic therapy for urinary infection. He is complaining of pain in his left lower extremities, no redness, able to do flexion and extension. There was no untoward events overnight. Objective - Vital Signs/Intake and Output Vital Signs (last 24 hours): Temp Pulse Resp BP Pulse Ox 96.9 F L 97 H 20 100/61 98 05/27/17 08:31 05/27/17 08:31 05/27/17 08:31 05/27/17 08:31 05/27/17 08:31 Intake and Output: 05/27/17 05/27/17 06:59 18:59 Intake Total 700 Output Total 1000 Balance -300 - Medications Medications: Current Medications Acetaminophen (Tylenol 325mg Tab) 650 mg PO Q4 PRN PRN Reason: Fever >100.4 F Last Admin: 05/22/17 18:55 Dose: 650 mg Codeine Sulfate (Codeine) 30 mg PO Q4H PRN PRN Reason: Pain, severe (8-10) Digoxin (Lanoxin) 0.25 mg PO DAILY@1400 [facility] Last Admin: 05/26/17 13:57 Dose: 0.25 mg Dimethicone (Proshield Plus Skin Protectant) 1 applic TOP Q8 [facility] Last Admin: 05/27/17 06:27 Dose: 1 applic Heparin Sodium (Porcine) (Heparin) 3,000 units SC Q12 [facility] PRN Reason: Protocol Last Admin: 05/27/17 08:17 Dose: 3,000 units Piperacillin Sod/Tazobactam (Sod 3.375 gm/ Sodium Chloride) 100 mls @ 100 mls/ hr IVPB Q6 [facility] PRN Reason: Protocol Last Admin: 05/27/17 06:29 Dose: 100 mls/hr Insulin Detemir (Levemir) 10 units SC HS [facility] Insulin Human Lispro (Humalog) 0 units SC ACHS [facility] PRN Reason: Protocol Last Admin: 05/27/17 06:38 Dose: Not Given Insulin Lispro Protam/Lispro Human (Humalog Mix 75/25) 40 units SC ACB [facility] Last Admin: 05/27/17 08:58 Dose: 40 units Insulin Lispro Protam/Lispro Human (Humalog Mix 75/25) 30 units SC ACD [facility] Last Admin: 05/26/17 17:28 Dose: 30 units Lactobacillus Acidophilus (Bacid Acidophilus) 1 cap PO BID [facility] Last Admin: 05/27/17 08:13 Dose: 1 cap Levetiracetam (Keppra) 750 mg PO BID [facility] Last Admin: 05/27/17 08:18 Dose: 750 mg Metoprolol Tartrate (Lopressor) 50 mg PO Q12 [facility] Last Admin: 05/27/17 08:18 Dose: Not Given Pregabalin (Lyrica) 75 mg PO 2200 [facility] Last Admin: 05/26/17 22:06 Dose: 75 mg Tamsulosin HCl (Flomax) 0.4 mg PO HS [facility] Last Admin: 05/26/17 22:02 Dose: 0.4 mg Tramadol HCl (Ultram) 50 mg PO BID PRN PRN Reason: Pain, moderate (4-7) Last Admin: 05/27/17 10:21 Dose: 50 mg - Labs Labs: 05/25/17 06:15 05/25/17 06:15 PT 14.5 Seconds (9.8-13.1) H 05/24/17 15:39 INR 1.3 (0.9-1.2) H 05/24/17 15:39 APTT 27.6 Seconds (25.6-37.1) 05/24/17 15:39 - Constitutional Appears: No Acute Distress - Head Exam Head Exam: NORMAL INSPECTION - Neurological Exam Neurological Exam: Alert, Awake Neuro motor strength exam: Left Upper Extremity: 4, Right Upper Extremity: 5, Left Lower Extremity: 4, Right Lower Extremity: 5 Additional comments: Neurological unchanged from previous examination. Assessment and Plan (1) Subdural hematoma Assessment & Plan: Case discussed with Dr. Jalloh, continue all current medical, physical, occupational, and speech therapies. Status: Acute (2) Seizures Assessment & Plan: Case discussed with Dr. Jalloh, continue all current medical including AED. Status: Acute (3) DVT (deep venous thrombosis) Assessment & Plan: Case discussed with Dr. Jalloh, continue anti-coagulant therapy, will repeat venous doppler in a prior to patient discharge to a sub acute rehab. to determine changing heparin SC to po anticoagulant. Monitor right groin area for s/s of hematoma or infection. Heparin dose will remain low in comparison from standard dose due to patient hx. of cerebral hemorrhage/ hematoma. Status: Acute
[2017-05-27 11:40] VITALS: RESP 20
[2017-05-27] MEDS: Digoxin 250 mcg (0.25 mg) Tab PO SCH (13:09)
--- NOTE | 2017-05-27 15:36 | RAD ---
PROCEDURE: Intraoperative fluoroscopy HISTORY: IVC FILTER COMPARISON: Not available TECHNIQUE: Intraoperative fluoroscopy was provided for IVC filter insertion. Total time of fluoroscopy was 300.2 seconds. FINDINGS: Cine clips and static fluoroscopic spot views are submitted. . IMPRESSION: Fluoroscopy provided.
--- NOTE | 2017-05-27 16:21 | PN ---
DATE: ENDO FOLLOWUP NOTE LOCATION: Room 624. SUBJECTIVE: This is an 81-year-old male who was admitted here for acute rehabilitation therapy following a recent right craniotomy for evacuation of subdural hematoma and is now being followed closely for metabolic management. His glycemic levels are fluctuating, but much improved at this time and this is clearly related to the variability of his oral intake as noted. His latest glucose levels have ranged from 58-104 and 179 mg/dL. It was 122 at bedtime last night. The latest chemistry showed BUN of 33, sodium of 140, potassium of 4.2, chloride of 108, CO2 of 19, glucose of 133, and creatinine of 2.4. So at this time, we will modify once again his basal and premixed insulin regimen and lower the basal insulin with Levemir given as 10 units subcu at bedtime daily as given. We will also continue the modified premixed insulin regimen with Humalog 75/25 given as 40 units before breakfast and 30 units before dinner as ordered. We will titrate incrementally as indicated to optimize metabolic control. We will follow and advice accordingly. Bianka Peterson MD
--- NOTE | 2017-05-27 18:54 | CP.PCM.PN ---
Subjective - Date & Time of Evaluation Date of Evaluation: 05/27/17 Time of Evaluation: 18:53 - Subjective Subjective: Patient seen in the room NAD scalp area is healing nicely, I had removed the erin and suture two days ago set for transfer to [facility] 05/29/17 Objective - Vital Signs/Intake and Output Vital Signs (last 24 hours): Temp Pulse Resp BP Pulse Ox 96.9 F L 97 H 20 100/61 98 05/27/17 08:31 05/27/17 08:31 05/27/17 08:31 05/27/17 08:31 05/27/17 08:31 Intake and Output: 05/27/17 05/27/17 06:59 18:59 Intake Total 700 250 Output Total 1000 751 Balance -300 -501 - Medications Medications: Current Medications Acetaminophen (Tylenol 325mg Tab) 650 mg PO Q4 PRN PRN Reason: Fever >100.4 F Last Admin: 05/22/17 18:55 Dose: 650 mg Codeine Sulfate (Codeine) 30 mg PO Q4H PRN PRN Reason: Pain, severe (8-10) Digoxin (Lanoxin) 0.25 mg PO DAILY@1400 [facility] Last Admin: 05/27/17 13:09 Dose: 0.25 mg Dimethicone (Proshield Plus Skin Protectant) 1 applic TOP Q8 [facility] Last Admin: 05/27/17 13:08 Dose: 1 applic Heparin Sodium (Porcine) (Heparin) 3,000 units SC Q12 [facility] PRN Reason: Protocol Last Admin: 05/27/17 08:17 Dose: 3,000 units Piperacillin Sod/Tazobactam (Sod 3.375 gm/ Sodium Chloride) 100 mls @ 100 mls/ hr IVPB Q6 [facility] PRN Reason: Protocol Last Admin: 05/27/17 17:21 Dose: 100 mls/hr Insulin Detemir (Levemir) 10 units SC HS [facility] Insulin Human Lispro (Humalog) 0 units SC ACHS [facility] PRN Reason: Protocol Last Admin: 05/27/17 16:53 Dose: Not Given Insulin Lispro Protam/Lispro Human (Humalog Mix 75/25) 40 units SC ACB [facility] Last Admin: 05/27/17 08:58 Dose: 40 units Insulin Lispro Protam/Lispro Human (Humalog Mix 75/25) 30 units SC ACD [facility] Last Admin: 05/27/17 17:20 Dose: 30 units Lactobacillus Acidophilus (Bacid Acidophilus) 1 cap PO BID [facility] Last Admin: 05/27/17 17:20 Dose: 1 cap Levetiracetam (Keppra) 750 mg PO BID [facility] Last Admin: 05/27/17 17:21 Dose: 750 mg Metoprolol Tartrate (Lopressor) 50 mg PO Q12 [facility] Last Admin: 05/27/17 08:18 Dose: Not Given Pregabalin (Lyrica) 75 mg PO 2200 [facility] Last Admin: 05/26/17 22:06 Dose: 75 mg Tamsulosin HCl (Flomax) 0.8 mg PO HS [facility] Tramadol HCl (Ultram) 50 mg PO BID PRN PRN Reason: Pain, moderate (4-7) Last Admin: 05/27/17 10:21 Dose: 50 mg - Labs Labs: 05/25/17 06:15 05/25/17 06:15 PT 14.5 Seconds (9.8-13.1) H 05/24/17 15:39 INR 1.3 (0.9-1.2) H 05/24/17 15:39 APTT 27.6 Seconds (25.6-37.1) 05/24/17 15:39
[2017-05-27] MEDS ORDERED: Insulin Detemir 100 Units/ml Inj SC SCH (22:00)
--- NOTE | 2017-05-27 22:24 | CP.PCM.CON ---
History of Present Illness - History of Present Illness History of Present Illness: 81 year old male with a history of HTN, DM, CKD, afib, recent treatment at [facility] for stroke with subdural hematoma s/p craniotomy, admitted to [facility] for rehab, complicated by UTI and DVT s/p IVC filter. The patient reports to lower extremity swelling and pain. He denies a history of bleeding or clotting in the past. He notes he was doing fairly well up until his stroke. Past medical history: HTN, DM, CKD, afib, DVT s/p IVC filter Past surgical history: Denies Family history: Denies hematologic and oncologic problems Social history: Denies tobacco, alcohol, and illicit drug use. Allergies: NKA Review of systems: All remaining review of systems including HEENT, cardiovascular, respiratory, gastrointestinal, genitourinary, musculoskeletal, dermatologic, neurologic, and psychiatric are negative unless mentioned in the HPI. Past Patient History - Infectious Disease Hx of Infectious Diseases: None - Tetanus Immunizations Tetanus Immunization: Unknown - Past Social History Smoking Status: Never Smoked Alcohol: None Home Situation {Lives}: Alone - CARDIAC Hx Cardiac Disorders: Yes Hx Congestive Heart Failure: Yes Hx Hypertension: Yes - PULMONARY Hx Chronic Obstructive Pulmonary Disease (COPD): Yes - NEUROLOGICAL Hx Neurological Disorder: No - HEENT Hx HEENT Problems: Yes Hx Cataracts: Yes Hx Glaucoma: Yes - RENAL Hx Chronic Kidney Disease: No - ENDOCRINE/METABOLIC Hx Diabetes Mellitus Type 2: Yes - HEMATOLOGICAL/ONCOLOGICAL Hx Blood Transfusions: Yes (ffp) Hx Blood Transfusion Reaction: No - INTEGUMENTARY Hx Dermatological Problems: No - MUSCULOSKELETAL/RHEUMATOLOGICAL Hx Falls: No - GASTROINTESTINAL Hx Gastrointestinal Disorders: Yes Hx Gastroesophageal Reflux: Yes - GENITOURINARY/GYNECOLOGICAL Other/Comment: prostate sx - PSYCHIATRIC Hx Substance Use: No - SURGICAL HISTORY Hx Surgeries: Yes - ANESTHESIA Hx Anesthesia Reactions: No Hx Malignant Hyperthermia: No Meds Allergies/Adverse Reactions: Allergies Allergy/AdvReac Type Severity Reaction Status Date / Time No Known Allergies Allergy Verified 05/14/17 14:25 - Medications Medications: Current Medications Acetaminophen (Tylenol 325mg Tab) 650 mg PO Q4 PRN PRN Reason: Fever >100.4 F Last Admin: 05/22/17 18:55 Dose: 650 mg Codeine Sulfate (Codeine) 30 mg PO Q4H PRN PRN Reason: Pain, severe (8-10) Digoxin (Lanoxin) 0.25 mg PO DAILY@1400 [facility] Last Admin: 05/27/17 13:09 Dose: 0.25 mg Dimethicone (Proshield Plus Skin Protectant) 1 applic TOP Q8 [facility] Last Admin: 05/27/17 21:53 Dose: 1 applic Heparin Sodium (Porcine) (Heparin) 3,000 units SC Q12 [facility] PRN Reason: Protocol Last Admin: 05/27/17 21:52 Dose: 3,000 units Piperacillin Sod/Tazobactam (Sod 3.375 gm/ Sodium Chloride) 100 mls @ 100 mls/ hr IVPB Q6 [facility] PRN Reason: Protocol Last Admin: 05/27/17 17:21 Dose: 100 mls/hr Insulin Detemir (Levemir) 10 units SC HS [facility] Last Admin: 05/27/17 21:48 Dose: 10 units Insulin Human Lispro (Humalog) 0 units SC ACHS [facility] PRN Reason: Protocol Last Admin: 05/27/17 21:49 Dose: Not Given Insulin Lispro Protam/Lispro Human (Humalog Mix 75/25) 40 units SC ACB [facility] Last Admin: 05/27/17 08:58 Dose: 40 units Insulin Lispro Protam/Lispro Human (Humalog Mix 75/25) 30 units SC ACD [facility] Last Admin: 05/27/17 17:20 Dose: 30 units Lactobacillus Acidophilus (Bacid Acidophilus) 1 cap PO BID [facility] Last Admin: 05/27/17 17:20 Dose: 1 cap Levetiracetam (Keppra) 750 mg PO BID [facility] Last Admin: 05/27/17 17:21 Dose: 750 mg Metoprolol Tartrate (Lopressor) 50 mg PO Q12 [facility] Last Admin: 05/27/17 21:38 Dose: 50 mg Pregabalin (Lyrica) 75 mg PO 2200 [facility] Last Admin: 05/27/17 21:46 Dose: 75 mg Tamsulosin HCl (Flomax) 0.8 mg PO [facility] Last Admin: 05/27/17 21:37 Dose: 0.8 mg Tramadol HCl (Ultram) 50 mg PO BID PRN PRN Reason: Pain, moderate (4-7) Last Admin: 05/27/17 21:35 Dose: 50 mg Physical Exam - Head Exam Additional comments: Craniotomy scar - Eye Exam Eye Exam: Normal appearance - ENT Exam ENT Exam: Mucous Membranes Dry - Respiratory Exam Respiratory Exam: NORMAL BREATHING PATTERN - Cardiovascular Exam Cardiovascular Exam: +S1, +S2 - GI/Abdominal Exam GI & Abdominal Exam: Normal Bowel Sounds - Extremities Exam Extremities exam: Positive for: pedal edema - Neurological Exam Neurological exam: Oriented x3 - Psychiatric Exam Psychiatric exam: Normal Affect, Normal Mood - Skin Skin Exam: Warm Results - Vital Signs Recent Vital Signs: Last Vital Signs Temp 97.4 F L 05/27/17 20:26 Pulse 87 05/27/17 21:38 Resp 20 05/27/17 20:26 BP 111/67 05/27/17 21:38 Pulse Ox 96 05/27/17 20:26 - Labs Result Diagrams: 05/25/17 06:15 05/25/17 06:15 Labs: Laboratory Results - last 24 hr 05/27/17 05/27/17 05/27/17 05:21 06:42 08:13 POC Glucose (mg/dL) 58 L 104 Urine Color Urine Clarity Urine pH Ur Specific [place] Urine Protein Urine Glucose (UA) Urine Ketones Urine Blood Urine Nitrate Urine Bilirubin Urine Urobilinogen Ur Leukocyte Esterase Urine RBC (Auto) Urine Microscopic WBC Ur Squamous Epith Cells Amorphous Sediment Urine Bacteria Hyaline Casts Ur Random Creatinine 69.8 Ur Random Sodium 73 05/27/17 05/27/17 05/27/17 09:41 11:53 15:52 POC Glucose (mg/dL) 179 H 142 H Urine Color Yellow Urine Clarity Slighty-cloudy Urine pH 5.0 Ur Specific [place] 1.016 Urine Protein 30 Urine Glucose (UA) Neg Urine Ketones Negative Urine Blood Small Urine Nitrate Negative Urine Bilirubin Negative Urine Urobilinogen 0.2-1.0 Ur Leukocyte Esterase Neg Urine RBC (Auto) 4 H Urine Microscopic WBC 2 Ur Squamous Epith Cells < 1 Amorphous Sediment Small Urine Bacteria Rare Hyaline Casts 0-2 Ur Random Creatinine Ur Random Sodium 05/27/17 20:46 POC Glucose (mg/dL) 122 H Urine Color Urine Clarity Urine pH Ur Specific [place] Urine Protein Urine Glucose (UA) Urine Ketones Urine Blood Urine Nitrate Urine Bilirubin Urine Urobilinogen Ur Leukocyte Esterase Urine RBC (Auto) Urine Microscopic WBC Ur Squamous Epith Cells Amorphous Sediment Urine Bacteria Hyaline Casts Ur Random Creatinine Ur Random Sodium Assessment & Plan (1) DVT (deep venous thrombosis) Assessment and Plan: B/L LE DVT - likely provoked from recent immobility/hospitalization s/p IVC filter pt high risk for therapeutic anticoagulation given recent subdural hematoma Status: Acute (2) Anemia Assessment and Plan: will check ferritin, retic count, b12, folate to further characterize the patients anemia Status: Acute (3) Leukocytosis Assessment and Plan: on antibiotics Thank you for this interesting consult. Status: Acute
[2017-05-28] MEDS: Piperacillin/Tazobact 3.375 GM in Sodium Chloride 0.9% 100 ML IVPB SCH ×4 (05:34→23:04)
[2017-05-28] MEDS: Proshield Plus GEL TOP SCH ×3 (05:49→21:43)
[2017-05-28 06:26] LABS: BASO # 0.2 K/uL (0.0-0.2); BASO % 1.4 % (0.0-2.0); EOS # 0.5 K/uL (0.0-0.7); EOS % 4.3 % (0.0-4.0); LYMPH % 16.4 % (20.0-40.0); MEAN CELL VOLUME 87.4 fl (80.0-94.0); MEAN CORPUSCULAR HEMOGLOBIN 29.4 pg (27.0-31.0); MEAN CORPUSCULAR HGB CONC 33.6 g/dL (33.0-37.0); MEAN PLATELET VOLUME 6.9 fl (7.2-11.7); MONO # 1.1 K/uL (0.0-0.8); MONO % 8.9 % (0.0-10.0); NEUT # 8.4 K/uL (1.8-7.0); RBC 3.4 Mil/uL (4.40-5.90); RED CELL DISTRIBUTION WIDTH 16.2 % (11.5-14.5); WHITE BLOOD COUNT 12.2 K/uL (4.8-10.8)
[2017-05-28 06:49] LABS: ALB/GLOB RATIO 0.8 (1.0-2.1); ALBUMIN 2.7 g/dL (3.5-5.0); CALCIUM 8.5 mg/dL (8.4-10.2)
[2017-05-28] MEDS: Insulin Lispro Mix 75/25 100 units/ml (HumaLog) 10ml SC SCH ×2 (07:33→16:48)
[2017-05-28] MEDS: Insulin Lispro (humaLOG) 100 Units/ml Inj SC SCH ×4 (07:34→21:45)
[2017-05-28] MEDS: Lactobacillus Acidophilus 500 MU Cap PO SCH ×2 (08:12→16:47)
--- NOTE | 2017-05-28 10:02 | CP.PCM.PN ---
Subjective - Date & Time of Evaluation Date of Evaluation: 05/28/17 Time of Evaluation: 10:00 - Subjective Subjective: Mr. Ritter was seen and examined at the bedside. He is awake with episode of forgetfulness. He is able to state place, time, and person. He denies any headache, dizziness, lightheadedness, nausea, or vomiting. He is able to follow simple commands. He is able to feed himself without any assistance.He is complaining of pain in his left lower extremities improving, no redness, able to do flexion and extension. There was no untoward events overnight. Objective - Vital Signs/Intake and Output Vital Signs (last 24 hours): Temp Pulse Resp BP Pulse Ox 98.2 F 92 H 20 103/64 95 05/28/17 07:34 05/28/17 08:14 05/28/17 07:34 05/28/17 08:14 05/28/17 07:34 Intake and Output: 05/28/17 05/28/17 06:59 18:59 Intake Total 700 Output Total 1100 Balance -400 - Medications Medications: Current Medications Acetaminophen (Tylenol 325mg Tab) 650 mg PO Q4 PRN PRN Reason: Fever >100.4 F Last Admin: 05/22/17 18:55 Dose: 650 mg Codeine Sulfate (Codeine) 30 mg PO Q4H PRN PRN Reason: Pain, severe (8-10) Digoxin (Lanoxin) 0.25 mg PO DAILY@1400 [facility] Last Admin: 05/27/17 13:09 Dose: 0.25 mg Dimethicone (Proshield Plus Skin Protectant) 1 applic TOP Q8 [facility] Last Admin: 05/28/17 05:49 Dose: 1 applic Heparin Sodium (Porcine) (Heparin) 3,000 units SC Q12 [facility] PRN Reason: Protocol Last Admin: 05/28/17 08:13 Dose: 3,000 units Piperacillin Sod/Tazobactam (Sod 3.375 gm/ Sodium Chloride) 100 mls @ 100 mls/ hr IVPB Q6 [facility] PRN Reason: Protocol Last Admin: 05/28/17 05:34 Dose: 100 mls/hr Insulin Detemir (Levemir) 10 units SC HS [facility] Last Admin: 05/27/17 21:48 Dose: 10 units Insulin Human Lispro (Humalog) 0 units SC ACHS [facility] PRN Reason: Protocol Last Admin: 05/28/17 07:34 Dose: Not Given Insulin Lispro Protam/Lispro Human (Humalog Mix 75/25) 40 units SC ACB [facility] Last Admin: 05/28/17 07:33 Dose: 40 units Insulin Lispro Protam/Lispro Human (Humalog Mix 75/25) 30 units SC ACD [facility] Last Admin: 05/27/17 17:20 Dose: 30 units Lactobacillus Acidophilus (Bacid Acidophilus) 1 cap PO BID [facility] Last Admin: 05/28/17 08:12 Dose: 1 cap Levetiracetam (Keppra) 750 mg PO BID [facility] Last Admin: 05/28/17 08:13 Dose: 750 mg Metoprolol Tartrate (Lopressor) 50 mg PO Q12 [facility] Last Admin: 05/28/17 08:14 Dose: 50 mg Pregabalin (Lyrica) 75 mg PO 2200 [facility] Last Admin: 05/27/17 21:46 Dose: 75 mg Tamsulosin HCl (Flomax) 0.8 mg PO HS [facility] Last Admin: 05/27/17 21:37 Dose: 0.8 mg Tramadol HCl (Ultram) 50 mg PO BID PRN PRN Reason: Pain, moderate (4-7) Last Admin: 05/27/17 21:35 Dose: 50 mg - Labs Labs: 05/28/17 05:50 05/28/17 05:50 PT 14.5 Seconds (9.8-13.1) H 05/24/17 15:39 INR 1.3 (0.9-1.2) H 05/24/17 15:39 APTT 27.6 Seconds (25.6-37.1) 05/24/17 15:39 - Constitutional Appears: No Acute Distress - Head Exam Head Exam: NORMAL INSPECTION - Neurological Exam Neurological Exam: Alert, Awake, Oriented x3 Neuro motor strength exam: Left Upper Extremity: 4, Right Upper Extremity: 5, Left Lower Extremity: 4, Right Lower Extremity: 5 Additional comments: neurological unchanged from previous examination. Assessment and Plan (1) Subdural hematoma Assessment & Plan: Case discussed with Dr. Jalloh, continue all current medical, physical, occupational, and speech therapies. Status: Acute (2) Seizures Assessment & Plan: Case discussed with Dr. Jalloh, continue all current medical including AED. Status: Acute (3) DVT (deep venous thrombosis) Assessment & Plan: Case discussed with Dr. Jalloh, continue current medical treatment and deanna stocking. Status: Acute
--- NOTE | 2017-05-28 11:32 | PN ---
DATE: ENDO FOLLOWUP NOTE LOCATION: Room 624. SUBJECTIVE: This is an 81-year-old male with recent uncontrolled type 2 insulin-requiring diabetes now being followed closely for metabolic management. His glycemic level is still low normal at this time with the glucose values ranging from 78-98 and 122 mg/dL. His latest chemistry showed BUN of 30, sodium of 140, potassium of 4.5, chloride of 107, CO2 of 21, glucose is 92, and creatinine is 2.7. So at this time, we will actually discontinue the Levemir given as 10 units at bedtime daily as ordered. We will continue the premixed insulin regimen with Humalog 75/25 given as 40 units before breakfast and 30 units before dinner as ordered. We will titrate incrementally as indicated to optimize metabolic control. We will continue also the low-dose correction scale using Humalog insulin as given. We will follow. Bianka Peterson MD
[2017-05-28 14:47] VITALS: PULSE 96
[2017-05-28] MEDS: Digoxin 250 mcg (0.25 mg) Tab PO SCH (14:47)
--- NOTE | 2017-05-28 14:56 | US ---
PROCEDURE: Ultrasound of the Kidneys HISTORY: ELYSSA COMPARISON: None available. TECHNIQUE: Sonogram of the kidneys. FINDINGS: RIGHT KIDNEY: Measures: 11.0 x 4.6 x 4.8 cm. Normal in size, contour and echogenicity. No stone, solid mass lesion or hydronephrosis visualized. LEFT KIDNEY: Measures: 11.5 x 5.2 x 5.1 cm. Normal in size, contour and echogenicity. No stone, solid mass lesion or hydronephrosis visualized. OTHER FINDINGS: None. IMPRESSION: Unremarkable renal sonogram.
[2017-05-28 16:08] LABS: FOLATE 16.1 ng/mL
--- NOTE | 2017-05-28 17:38 | CP.PCM.PN ---
Subjective - Date & Time of Evaluation Date of Evaluation: 05/28/17 Time of Evaluation: 10:00 - Subjective Subjective: Nephrology Consultation Note Assessment: Stable Acute Kidney Injury (N17.9) likely Hemodynamic due to blood pressure on the low side. Also possible due to medications such as antibiotic Diabetic chronic Kidney Disease (E11.22) Hypertensive Chronic Kidney Disease (I12.9) Chronic Kidney Disease (N18.3) Stage 3 with Anemia (D64.9), HTN (I12.9) Subdural hematoma, DVT status post IVC filter, UTI, A. fib Plan No acute need for renal replacement therapy at this time. Patient not on ACEI/ARB due to recent ELYSSA. Avoid hypotension Monitor Input/Output, daily weights and renal function with basic metabolic panel Will check renal sonogram Dose meds/antibiotics for reduced GFR. Avoid fleets enema/magnesium based laxatives. Avoid nephrotoxins/NSAIDs/ iodinated contrast (unless needed emergently) Glycemic control Further work up for as per primary team Thanks for allowing me to participate in care of your patient. Will follow patient with you. Please call if any Qs Dr Rl Hendricks Office: [phone] Subjective: Noted events overnight. Patients feels okay. Denies chest pain, palpitation, shortness of breath, leg swelling. All other negative Physical Examination: General Appearance: Comfortable, in no acute respiratory distress, co-operative . Vitals reviewed and noted as below Head; Atraumatic, normocephalic ENT: no ulcers no thrush. Tongue is midline. Oropharynx: no rash or ulcers. EYES: Pupils are equal, round and reactive to light accommodation. Eye muscles and extraocular movement intact. Sclera is anicteric. Neck; supple no lymphadenopathy, no thyromegaly or bruit Lungs: Normal respiratory rate/effort. Breath sounds bilateral equal and clear Heart: Normal rate. s1s2 normal. No rub or gallop. Extremities: no edema. No varicose veins Neurological: Patient is alert, awake and oriented to person, place and time. No focal deficit. Strength bilateral appropriate and equal Skin: Warm and dry. Normal turgor. No rash. Palpitation: Normal elasticity for age Abdomen: Abdomen is soft. Bowel sounds +. There is no abdominal tenderness, no guarding/rigidity no organomegaly Psych: limited insight and normal affect/mood MSK: no joint tenderness or swelling. Digits and nails normal, no deformity : kidney or bladder not palpable Labs/imaging reviewed. Past medical history, past surgical history, family history, social history, allergy reviewed and noted as below Family hx: no hx of CKD. Rest non-contributory Workup UA now negative Echo showed mild LVH cr At baseline 1.5-1.8 Vitamin D 43 Objective - Vital Signs/Intake and Output Vital Signs (last 24 hours): Temp Pulse Resp BP Pulse Ox 98.2 F 92 H 20 103/64 95 05/28/17 07:34 05/28/17 08:14 05/28/17 07:34 05/28/17 08:14 05/28/17 07:34 Intake and Output: 05/28/17 05/28/17 06:59 18:59 Intake Total 700 Output Total 1100 Balance -400 - Medications Medications: Current Medications Acetaminophen (Tylenol 325mg Tab) 650 mg PO Q4 PRN PRN Reason: Fever >100.4 F Last Admin: 05/22/17 18:55 Dose: 650 mg Codeine Sulfate (Codeine) 30 mg PO Q4H PRN PRN Reason: Pain, severe (8-10) Digoxin (Lanoxin) 0.25 mg PO DAILY@1400 [facility] Last Admin: 05/28/17 14:47 Dose: 0.25 mg Dimethicone (Proshield Plus Skin Protectant) 1 applic TOP Q8 [facility] Last Admin: 05/28/17 14:47 Dose: 1 applic Heparin Sodium (Porcine) (Heparin) 3,000 units SC Q12 [facility] PRN Reason: Protocol Last Admin: 05/28/17 08:13 Dose: 3,000 units Piperacillin Sod/Tazobactam (Sod 3.375 gm/ Sodium Chloride) 100 mls @ 100 mls/ hr IVPB Q6 [facility] PRN Reason: Protocol Last Admin: 05/28/17 17:26 Dose: 100 mls/hr Insulin Human Lispro (Humalog) 0 units SC ACHS [facility] PRN Reason: Protocol Last Admin: 05/28/17 16:46 Dose: Not Given Insulin Lispro Protam/Lispro Human (Humalog Mix 75/25) 40 units SC ACB [facility] Last Admin: 05/28/17 07:33 Dose: 40 units Insulin Lispro Protam/Lispro Human (Humalog Mix 75/25) 30 units SC ACD [facility] Last Admin: 05/28/17 16:48 Dose: 30 units Lactobacillus Acidophilus (Bacid Acidophilus) 1 cap PO BID [facility] Last Admin: 05/28/17 16:47 Dose: 1 cap Levetiracetam (Keppra) 750 mg PO BID [facility] Last Admin: 05/28/17 16:48 Dose: 750 mg Metoprolol Tartrate (Lopressor) 50 mg PO Q12 [facility] Last Admin: 05/28/17 08:14 Dose: 50 mg Pregabalin (Lyrica) 75 mg PO 2200 [facility] Last Admin: 05/27/17 21:46 Dose: 75 mg Tamsulosin HCl (Flomax) 0.8 mg PO HS [facility] Last Admin: 05/27/17 21:37 Dose: 0.8 mg Tramadol HCl (Ultram) 50 mg PO BID PRN PRN Reason: Pain, moderate (4-7) Last Admin: 05/28/17 17:26 Dose: 50 mg - Labs Labs: 05/28/17 05:50 05/28/17 05:50 PT 14.5 Seconds (9.8-13.1) H 05/24/17 15:39 INR 1.3 (0.9-1.2) H 05/24/17 15:39 APTT 27.6 Seconds (25.6-37.1) 05/24/17 15:39
[2017-05-29] MEDS: Piperacillin/Tazobact 3.375 GM in Sodium Chloride 0.9% 100 ML IVPB SCH ×2 (05:06→11:49)
[2017-05-29] MEDS: Proshield Plus GEL TOP SCH (06:11)
[2017-05-29] MEDS: Insulin Lispro (humaLOG) 100 Units/ml Inj SC SCH ×2 (06:49→11:50)
[2017-05-29 07:51] VITALS: BP 117/64; PULSE 85; TEMP 97.3; O2SAT 96
[2017-05-29] MEDS: Insulin Lispro Mix 75/25 100 units/ml (HumaLog) 10ml SC SCH (08:16)
[2017-05-29 08:18] LABS: CALCIUM 8.8 mg/dL (8.4-10.2)
[2017-05-29] MEDS: Lactobacillus Acidophilus 500 MU Cap PO SCH (08:21)
--- NOTE | 2017-05-29 11:20 | CP.PCM.PN ---
Subjective - Date & Time of Evaluation Date of Evaluation: 05/29/17 Time of Evaluation: 09:00 - Subjective Subjective: no acute complaints Objective - Vital Signs/Intake and Output Vital Signs (last 24 hours): Temp Pulse Resp BP Pulse Ox 97.3 F L 85 20 117/64 96 05/29/17 07:51 05/29/17 08:18 05/29/17 07:51 05/29/17 08:18 05/29/17 07:51 Intake and Output: 05/29/17 05/29/17 06:59 18:59 Intake Total 920 Output Total 1400 Balance -480 - Medications Medications: Current Medications Acetaminophen (Tylenol 325mg Tab) 650 mg PO Q4 PRN PRN Reason: Fever >100.4 F Last Admin: 05/22/17 18:55 Dose: 650 mg Codeine Sulfate (Codeine) 30 mg PO Q4H PRN PRN Reason: Pain, severe (8-10) Digoxin (Lanoxin) 0.25 mg PO DAILY@1400 [facility] Last Admin: 05/28/17 14:47 Dose: 0.25 mg Dimethicone (Proshield Plus Skin Protectant) 1 applic TOP Q8 [facility] Last Admin: 05/29/17 06:11 Dose: 1 applic Heparin Sodium (Porcine) (Heparin) 3,000 units SC Q12 [facility] PRN Reason: Protocol Last Admin: 05/29/17 08:17 Dose: 3,000 units Piperacillin Sod/Tazobactam (Sod 3.375 gm/ Sodium Chloride) 100 mls @ 100 mls/ hr IVPB Q6 [facility] PRN Reason: Protocol Last Admin: 05/29/17 05:06 Dose: 100 mls/hr Insulin Human Lispro (Humalog) 0 units SC ACHS [facility] PRN Reason: Protocol Last Admin: 05/29/17 06:49 Dose: Not Given Insulin Lispro Protam/Lispro Human (Humalog Mix 75/25) 40 units SC ACB [facility] Last Admin: 05/29/17 08:16 Dose: 40 units Insulin Lispro Protam/Lispro Human (Humalog Mix 75/25) 30 units SC ACD [facility] Last Admin: 05/28/17 16:48 Dose: 30 units Lactobacillus Acidophilus (Bacid Acidophilus) 1 cap PO BID [facility] Last Admin: 05/29/17 08:21 Dose: 1 cap Levetiracetam (Keppra) 750 mg PO BID [facility] Last Admin: 05/29/17 08:19 Dose: 750 mg Metoprolol Tartrate (Lopressor) 50 mg PO Q12 [facility] Last Admin: 05/29/17 08:18 Dose: 50 mg Pregabalin (Lyrica) 75 mg PO 2200 [facility] Last Admin: 05/28/17 21:45 Dose: 75 mg Tamsulosin HCl (Flomax) 0.8 mg PO HS [facility] Last Admin: 05/28/17 21:44 Dose: 0.8 mg Tramadol HCl (Ultram) 50 mg PO BID PRN PRN Reason: Pain, moderate (4-7) Last Admin: 05/28/17 23:39 Dose: 50 mg - Labs Labs: 05/28/17 05:50 05/29/17 05:30 PT 14.5 Seconds (9.8-13.1) H 05/24/17 15:39 INR 1.3 (0.9-1.2) H 05/24/17 15:39 APTT 27.6 Seconds (25.6-37.1) 05/24/17 15:39 - Head Exam Head Exam: ATRAUMATIC, NORMAL INSPECTION, NORMOCEPHALIC - Eye Exam Eye Exam: EOMI, Normal appearance, PERRL Pupil Exam: NORMAL ACCOMODATION - ENT Exam ENT Exam: Mucous Membranes Moist, Normal Exam - Neck Exam Neck Exam: Normal Inspection - Respiratory Exam Respiratory Exam: NORMAL BREATHING PATTERN - Cardiovascular Exam Cardiovascular Exam: REGULAR RHYTHM - GI/Abdominal Exam GI & Abdominal Exam: Soft, Normal Bowel Sounds - Rectal Exam Rectal Exam: NORMAL INSPECTION - Exam External exam: NORMAL EXTERNAL EXAM - Extremities Exam Extremities Exam: Full ROM, Normal Capillary Refill, Normal Inspection - Neurological Exam Neurological Exam: Alert, Awake - Psychiatric Exam Psychiatric exam: Normal Affect, Normal Mood - Skin Skin Exam: Dry, Intact Assessment and Plan (1) Altered mental status Status: Acute (2) Anemia Status: Acute (3) DVT (deep venous thrombosis) Status: Acute (4) Leukocytosis Status: Acute (5) Pain of lower extremity Status: Acute (6) Seizures Status: Acute (7) Subdural hematoma Assessment & Plan: plan for occupational, rec and physical covering for Dr brown Status: Acute (8) Acute on chronic renal failure Status: Acute
--- NOTE | 2017-05-29 12:12 | CP.PCM.DIS ---
Provider - Provider Date of Admission: 05/14/17 14:25 Attending physician: Nabil Kwan MD Primary care physician: PMD: Dr. Onel Santiago Consults: Dr. Garrett Elder- hematology Dr. Francy Nguyen- vascular surgery Dr. Miguel Angel Bills- physiatry Dr. Juan Jose Benoit- nephrology Time Spent in preparation of Discharge (in minutes): 25 Hospital Course - Lab Results Lab Results: Micro Results 05/22/17 20:30 Blood Blood Culture - Final NO GROWTH AFTER 5 DAYS 05/22/17 20:30 Blood Gram Stain - Final TEST NOT PERFORMED 05/19/17 19:40 Blood-Venous Blood Culture - Final NO GROWTH AFTER 5 DAYS 05/19/17 19:40 Blood-Venous Gram Stain - Final TEST NOT PERFORMED 05/19/17 19:30 Blood-Venous Blood Culture - Final NO GROWTH AFTER 5 DAYS 05/19/17 19:30 Blood-Venous Gram Stain - Final TEST NOT PERFORMED 05/20/17 16:25 Urine,Duque Urine Culture - Final Escherichia Coli Most Recent Lab Values WBC 12.2 K/uL (4.8-10.8) H 05/28/17 05:50 RBC 3.40 Mil/uL (4.40-5.90) L 05/28/17 05:50 Hgb 10.0 g/dL (12.0-18.0) L 05/28/17 05:50 Hct 29.7 % (35.0-51.0) L 05/28/17 05:50 MCV 87.4 fl (80.0-94.0) 05/28/17 05:50 MCH 29.4 pg (27.0-31.0) 05/28/17 05:50 MCHC 33.6 g/dL (33.0-37.0) 05/28/17 05:50 RDW 16.2 % (11.5-14.5) H 05/28/17 05:50 Plt Count 605 K/uL (130-400) H D 05/28/17 05:50 MPV 6.9 fl (7.2-11.7) L 05/28/17 05:50 Neut % (Auto) 69.0 % (50.0-75.0) 05/28/17 05:50 Lymph % (Auto) 16.4 % (20.0-40.0) L 05/28/17 05:50 Harding % (Auto) 8.9 % (0.0-10.0) 05/28/17 05:50 Eos % (Auto) 4.3 % (0.0-4.0) H 05/28/17 05:50 Baso % (Auto) 1.4 % (0.0-2.0) 05/28/17 05:50 Neut # (Auto) 8.4 K/uL (1.8-7.0) H 05/28/17 05:50 Lymph # (Auto) 2.0 K/uL (1.0-4.3) 05/28/17 05:50 Harding # (Auto) 1.1 K/uL (0.0-0.8) H 05/28/17 05:50 Eos # (Auto) 0.5 K/uL (0.0-0.7) 05/28/17 05:50 Baso # (Auto) 0.2 K/uL (0.0-0.2) 05/28/17 05:50 Neutrophils % (Manual) 85 % (42-75) H 05/19/17 19:40 Band Neutrophils % 3 % (0-2) H 05/19/17 19:40 Lymphocytes % (Manual) 8 % (20-50) L 05/19/17 19:40 Monocytes % (Manual) 4 % (0-10) 05/19/17 19:40 Platelet Estimate Increased (NORMAL) H 05/19/17 19:40 Large Platelets Present 05/19/17 19:40 Hypochromasia (manual) Slight 05/19/17 19:40 Poikilocytosis (manual Slight 05/19/17 19:40 Anisocytosis (manual) Slight 05/19/17 19:40 Retic Count 1.6 % (0.5-1.5) H 05/28/17 05:40 PT 14.5 Seconds (9.8-13.1) H 05/24/17 15:39 INR 1.3 (0.9-1.2) H 05/24/17 15:39 APTT 27.6 Seconds (25.6-37.1) 05/24/17 15:39 Sodium 139 mmol/l (132-148) 05/29/17 05:30 Potassium 4.6 MMOL/L (3.6-5.0) 05/29/17 05:30 Chloride 105 mmol/L (98-107) 05/29/17 05:30 Carbon Dioxide 25 mmol/L (22-30) 05/29/17 05:30 Anion Gap 14 (10-20) 05/29/17 05:30 BUN 30 mg/dl (9-20) H 05/29/17 05:30 Creatinine 3.0 mg/dl (0.8-1.5) H 05/29/17 05:30 Est GFR ( Amer) 24 05/29/17 05:30 Est GFR (Non-Af Amer) 20 05/29/17 05:30 POC Glucose (mg/dL) 71 mg/dL (65-110) 05/29/17 06:16 Random Glucose 80 mg/dL (75-110) 05/29/17 05:30 Hemoglobin A1c 9.9 % (4.2-6.5) H 05/16/17 07:30 Calcium 8.8 mg/dL (8.4-10.2) 05/29/17 05:30 Ferritin 550.0 ng/Ml (17.9-464) H 05/28/17 05:50 Total Bilirubin 0.6 mg/dl (0.2-1.3) 05/28/17 05:50 AST 72 U/L (17-59) H D 05/28/17 05:50 ALT 67 U/L (21-72) 05/28/17 05:50 Alkaline Phosphatase 109 U/L (38-126) 05/28/17 05:50 Total Protein 6.3 G/DL (6.3-8.2) 05/28/17 05:50 Albumin 2.7 g/dL (3.5-5.0) L 05/28/17 05:50 Globulin 3.6 gm/dL (2.2-3.9) 05/28/17 05:50 Albumin/Globulin Ratio 0.8 (1.0-2.1) L 05/28/17 05:50 Vitamin B12 729 pg/mL (239-931) 05/28/17 05:50 25-OH Vitamin D Total 43.4 NG/ML (30.0-100.0) 05/20/17 05:45 Folate 16.1 ng/mL 05/28/17 05:50 TSH 3rd Generation 0.85 mIU/ML (0.46-4.68) 05/20/17 05:45 Urine Color Yellow (YELLOW) 05/27/17 09:41 Urine Clarity Slighty-cloudy (Clear) 05/27/17 09:41 Urine pH 5.0 (5.0-8.0) 05/27/17 09:41 Ur Specific [place] 1.016 (1.003-1.030) 05/27/17 09:41 Urine Protein 30 mg/dL (NEGATIVE) 05/27/17 09:41 Urine Glucose (UA) Neg mg/dL (Normal) 05/27/17 09:41 Urine Ketones Negative mg/dL (NEGATIVE) 05/27/17 09:41 Urine Blood Small (NEGATIVE) 05/27/17 09:41 Urine Nitrate Negative (NEGATIVE) 05/27/17 09:41 Urine Bilirubin Negative (NEGATIVE) 05/27/17 09:41 Urine Urobilinogen 0.2-1.0 mg/dL (0.2-1.0) 05/27/17 09:41 Ur Leukocyte Esterase Neg Tatiana/uL (Negative) 05/27/17 09:41 Urine RBC (Auto) 4 /hpf (0-3) H 05/27/17 09:41 Urine WBC Clumps (Auto) Few /hpf (NONE) H 05/19/17 19:45 Urine Microscopic WBC 2 /hpf (0-5) 05/27/17 09:41 Ur Squamous Epith Cells < 1 /hpf (0-5) 05/27/17 09:41 Amorphous Sediment Small /ul (<OCC) 05/27/17 09:41 Urine Bacteria Rare (<OCC) 05/27/17 09:41 Hyaline Casts 0-2 /hpf (0-2) 05/27/17 09:41 Ur Random Creatinine 69.8 mg/dL 05/27/17 08:13 Ur Random Sodium 73 mmol/L 05/27/17 08:13 C. difficile Ag & Toxin Negative (NEGATIVE) 05/21/17 10:00 - Hospital Course Hospital Course: 81 yo male with history of AFib, DM2, CKD stage III, and HTN was admitted at [facility] because of left sided weakness and left upper extremity tremor. CT scan of the head showed Acute Right Subdural Hematoma with mass effect and midline shift. Neurosurgery consulted and patient was sent to OR for right frontal craniotomy and evacuation of hematoma. Patient was sent to [facility] for continuation of therapy.While in rehab he developed epiosdes of focal left upper extremity seizure episodes and was transferred to telemetry for short observation . Neurology was consulted and he was started on Keppra for seizure control. At present back in rehab for PT . No more seizure like activity noted. 05/24/2017 c/o calf pain and bilateral DVT found. The same day, 05/24, IVC filter was placed by vascular surgeon Dr. Nguyen which the patient tolerated now. The patient is being continued on low dose heparin for the DVT which was started by neurology, Dr. Jalloh. The patient has also been on Zosyn for UTI; last dose (day 7) given today 05/29/2017. The patient was also seen by Dr. Benoit for ELYSSA on top of CKD stage III, fluids were encouraged. Renal function should continue to be monitored and should improve with the discontinuation of Zosyn. The patient is being discharged to [facility] today in stable condition. 1. Subdural Hematoma- stable post craniotomy with hematoma evacuation more alert and oriented today Continue therapies at [facility] ok to be continued on low dose Heparin 3000 sq for acute DVT as per neurology 2. AFib rate controlled continue Digoxin and Metoprolol high dose anticoagulant DC because of subdural hematoma 3. HTN BP stable but sometimes gets on the low side continue Metoprolol 50mg PO BID (with holding parameters) 4. DM2 BS controlled Insulin Lispro Mix 75/25 50 units ACB Insulin Lispro Mix 75/25 40 units ACD HgA1C: 9.[address] with Dr Nicholas jarvis 5. BPH continue Flomax 0.4mg PO daily unable to DC duque catheter because of urinary retention urology consult with Dr Sharp Oxybutynin was discontinued 6. DVT, bilateral lower extremities but more extensive on the left had IVC filter put in on 05/24 complained of pain on the left leg Heparin 3000 units q 12hrs as per neurology; low dose due to subdural hematoma hematology consult with Dr Elder 7. UTI- resolved urine culture grew E Coli susceptible to Zosyn Zosyn 3.375gm IV q 6hrs was given during his stay, last dose was given today. 8. CKD stage III acute on CKD BUN/Creat: 33/2.[address] Hendricks Discharge Exam - Additional Findings Additional findings: Physical exam: Constitutional- cooperative, awake, alert Head- NCAT, PERRL Eye- PERRL, EOMI ENT- normal exam, MMM. Neck- normal inspection, supple, no JVD Respiratory- CTAB, no wheezes rales rhonchi Cardiovascular- RRR, +S1, +S2 no MRG GI/Abdominal- normal bowel sounds, soft, no mass, no hsm Skin- warm, dry Extremities Exam- + Calf pain bilaterally, normal capillary refill, normal inspection Neurological Exam- alert, awake, oriented, 3/5 muscle strength in left upper and lower extremity, 5/5 muscle strength in right upper and lower extremities Psych- normal mood, normal affect Discharge Plan - Follow Up Plan Condition: GOOD Disposition: REHAB FACILITY/REHAB UNIT Instructions: Subdural Hematoma (DC)
--- NOTE | 2017-05-29 14:45 | PN ---
DATE: ENDO FOLLOWUP NOTE LOCATION: Room 624. SUBJECTIVE: This is an 81-year-old male with recent uncontrolled type 2 insulin-requiring diabetes, now being followed closely for metabolic management. His oral intake remains variable at this time with episodic bouts of low normal glycemic levels as noted. His glucose levels overnight have ranged from 71-78 and 200 mg/dL. His latest chemistry showed BUN of , sodium of 139, potassium of 4.6, chloride of 105, CO2 of 25, glucose of 80, and creatinine of 3.0. There is evidence of also progressive renal insufficiency with advanced azotemia and this will actually be a big factor for lesser insulin requirements at this time because of supervening increased insulin resistance and reduced clearance thereof. We will modify his premixed insulin regimen at this time as he had actually already discontinued his basal insulin given overnight as noted. We will lower the Humalog 75/25 to units subcu a.c. breakfast to start tomorrow morning as ordered. We will also lower the Humalog 75/25 to 20 units a.c. dinner to start today as ordered. We will titrate incrementally as indicated to optimize metabolic control. We will continue the low-dose correction scale using Humalog insulin as given. We will titrate incrementally as indicated to optimize metabolic control. We will follow. Bianka Peterson MD
[2017-05-29] MEDS ORDERED: Insulin Lispro Mix 75/25 100 units/ml (HumaLog) 10ml SC SCH (16:30)
--- NOTE | 2017-05-29 20:50 | CP.PCM.PN ---
Subjective - Date & Time of Evaluation Date of Evaluation: 05/29/17 Time of Evaluation: 10:00 - Subjective Subjective: Feeling better Objective - Vital Signs/Intake and Output Vital Signs (last 24 hours): Temp Pulse Resp BP Pulse Ox 97.3 F L 85 20 117/64 96 05/29/17 07:51 05/29/17 08:18 05/29/17 07:51 05/29/17 08:18 05/29/17 07:51 - Labs Labs: 05/28/17 05:50 05/29/17 05:30 PT 14.5 Seconds (9.8-13.1) H 05/24/17 15:39 INR 1.3 (0.9-1.2) H 05/24/17 15:39 APTT 27.6 Seconds (25.6-37.1) 05/24/17 15:39 - Head Exam Head Exam: ATRAUMATIC - Eye Exam Eye Exam: Normal appearance - ENT Exam ENT Exam: Mucous Membranes Dry - Respiratory Exam Respiratory Exam: NORMAL BREATHING PATTERN - Cardiovascular Exam Cardiovascular Exam: +S1, +S2 - GI/Abdominal Exam GI & Abdominal Exam: Normal Bowel Sounds Assessment and Plan (1) DVT (deep venous thrombosis) Assessment & Plan: B/L LE DVT - likely provoked from recent immobility/hospitalization s/p IVC filter pt high risk for therapeutic anticoagulation given recent subdural hematoma Status: Acute (2) Anemia Assessment & Plan: work up consistent with chronic disease and renal disease Status: Acute (3) Leukocytosis Assessment & Plan: improved Status: Acute
[2017-05-30] MEDS ORDERED: Insulin Lispro Mix 75/25 100 units/ml (HumaLog) 10ml SC SCH (07:30)
== END 2017-05-29 13:05 | DRG 41 ==
LOC: UNDODISIN 05-16 10:30 → TMPLOALOC 05-16 10:30
PROC: F07Z9FZ Gait Training/Functional Ambulation Treatment using Assistive, Adaptive, Supportive or Protective Equipment (ICD-10-PCS; principal; 2017-05-14)
PROC: F06Z6MZ Communicative/Cognitive Integration Skills Treatment using Augmentative / Alternative Communication Equipment (ICD-10-PCS; 2017-05-14)
PROC: F08Z4FZ Home Management Treatment using Assistive, Adaptive, Supportive or Protective Equipment (ICD-10-PCS; 2017-05-14)
PROC: F07J6FZ Therapeutic Exercise Treatment of Musculoskeletal System - Head and Neck using Assistive, Adaptive, Supportive or Protective Equipment (ICD-10-PCS; 2017-05-15)
PROC: 06H03DZ Insertion of Intraluminal Device into Inferior Vena Cava, Percutaneous Approach (ICD-10-PCS; 2017-05-25)
DX: I69.154 Hemiplegia and hemiparesis following nontraumatic intracerebral hemorrhage affecting left non-dominant side (principal); G40.89 Other seizures; I82.413 Acute embolism and thrombosis of femoral vein, bilateral; N17.9 Acute kidney failure, unspecified; N39.0 Urinary tract infection, site not specified; I69.192 Facial weakness following nontraumatic intracerebral hemorrhage; L89.152 Pressure ulcer of sacral region, stage 2; Z98.890 Other specified postprocedural states; I48.91 Unspecified atrial fibrillation; I50.9 Heart failure, unspecified; K21.9 Gastro-esophageal reflux disease without esophagitis; E11.9 Type 2 diabetes mellitus without complications; I25.10 Atherosclerotic heart disease of native coronary artery without angina pectoris; N18.3 Chronic kidney disease, stage 3 (moderate); I12.9 Hypertensive chronic kidney disease with stage 1 through stage 4 chronic kidney disease, or unspecified chronic kidney disease; B96.20 Unspecified Escherichia coli [E. coli] as the cause of diseases classified elsewhere; J44.9 Chronic obstructive pulmonary disease, unspecified; E78.5 Hyperlipidemia, unspecified; D64.9 Anemia, unspecified; N40.1 Benign prostatic hyperplasia with lower urinary tract symptoms; R33.8 Other retention of urine; H40.9 Unspecified glaucoma; Z96.652 Presence of left artificial knee joint; Z79.4 Long term (current) use of insulin

== ENCOUNTER 2017-05-16 11:09 | Observation (INO) | payer MEDICARE, MEDICAID ==
[2017-05-16 11:10] VITALS: BMI 27.1
[2017-05-16] MEDS ORDERED: levETIRAcetam 1,000 MG in Sodium Chloride 0.9% 100 ML IVPB ONE (11:30)
--- NOTE | 2017-05-16 12:54 | CP.PCM.HP ---
History of Present Illness - History of Present Illness History of Present Illness: CC: seizures, subdural hematoma HPI: 81 yo male with history of AFib, DM2, HTN and CHF was admitted at [facility] because of left sided weakness and left upper extremity tremor. CT scan of the head showed Acute Right Subdural Hematoma with mass effect and midline shift. Neurosurgical consult were made and patient was sent to OR for right frontal craniotomy and evacuation of hematoma. Patient was sent to [facility] Acute Rehab for continuation of therapy. While in acute rehab, patient had 2 episodes of focal seizures today. Patient was evaluated by Neuro team, and subsequently transferred to ICU for IV Keppra and close monitoring. Repeat CT Head showed mild increase in thickness of R frontoparietal subdural hematoma. Discussed with Neuro, patient to be transferred to ED at this time for admission to close observation on Telemetry overnight. ROS: per HPI all other systems reviewed and negative by me Present on Admission - Present on Admission Any Indicators Present on Admission: No Past Patient History - Infectious Disease Hx of Infectious Diseases: None - Tetanus Immunizations Tetanus Immunization: Unknown - Past Social History Smoking Status: Former Smoker - CARDIAC Hx Cardiac Disorders: Yes Hx Atrial Fibrillation: Yes Hx Congestive Heart Failure: Yes Hx Hypertension: Yes - PULMONARY Hx Respiratory Disorders: Yes Hx Chronic Obstructive Pulmonary Disease (COPD): Yes - NEUROLOGICAL Hx Neurological Disorder: No - HEENT Hx HEENT Problems: Yes Hx Cataracts: Yes Hx Glaucoma: Yes - RENAL Hx Chronic Kidney Disease: No - ENDOCRINE/METABOLIC Hx Endocrine Disorders: Yes Hx Diabetes Mellitus Type 2: Yes - HEMATOLOGICAL/ONCOLOGICAL Hx Blood Disorders: Yes Hx Blood Transfusions: Yes (ffp) Hx Blood Transfusion Reaction: No - INTEGUMENTARY Hx Dermatological Problems: No - MUSCULOSKELETAL/RHEUMATOLOGICAL Hx Musculoskeletal Disorders: Yes Hx Falls: Yes - GASTROINTESTINAL Hx Gastrointestinal Disorders: Yes Hx Gastroesophageal Reflux: Yes - GENITOURINARY/GYNECOLOGICAL Hx Genitourinary Disorders: Yes Other/Comment: prostate sx - PSYCHIATRIC Hx Psychophysiologic Disorder: No Hx Substance Use: No - SURGICAL HISTORY Hx Surgeries: Yes Other/Comment: s/p Right subdural hematoma evacuation (05/11/2017 @ [facility]) - ANESTHESIA Hx Anesthesia: Yes Hx Anesthesia Reactions: No Hx Malignant Hyperthermia: No Meds Allergies/Adverse Reactions: Allergies Allergy/AdvReac Type Severity Reaction Status Date / Time No Known Allergies Allergy Verified 05/14/17 14:25 Physical Exam - Constitutional Additional comments: Physical exam: Constitutional- cooperative, awake, alert Head- NCAT, PERRL Eye- PERRL, EOMI ENT- normal exam, MMM. Neck- normal inspection, supple, no JVD Respiratory- CTAB, no wheezes rales rhonchi Cardiovascular- RRR, +S1, +S2 no MRG GI/Abdominal- normal bowel sounds, soft, no mass, no hsm Skin- warm, dry Extremities Exam- normal capillary refill, normal inspection Neurological Exam- alert, awake, oriented Psych- normal mood, normal affect Results - Vital Signs Recent Vital Signs: Last Vital Signs Temp 98.0 F 05/16/17 11:13 Pulse 83 05/16/17 11:13 Resp 14 05/16/17 11:13 BP 96/62 L 05/16/17 11:13 Pulse Ox 92 L 05/16/17 11:13 - Labs Labs: Laboratory Results - last 24 hr 05/16/17 11:37 POC Glucose (mg/dL) 393 H Assessment & Plan - Assessment and Plan (Free Text) Plan: 81 yo male with history of AFib, DM2, HTN and CHF was admitted at [facility] because of left sided weakness and left upper extremity tremor. CT scan of the head showed Acute Right Subdural Hematoma with mass effect and midline shift. Neurosurgical consult were made and patient was sent to OR for right frontal craniotomy and evacuation of hematoma. Patient was sent to [facility] Acute Rehab for continuation of therapy. While in acute rehab, patient had 2 episodes of focal seizures today. Patient was evaluated by Neuro team, and subsequently transferred to ICU for IV Keppra and close monitoring. Repeat CT Head showed mild increase in thickness of R frontoparietal subdural hematoma. Discussed with Neuro, patient to be transferred to ED at this time for admission to close observation on Telemetry overnight. Seizures transferred to Tele for IV Keppra load and continue 750 mg Q12 hours close monitoring Discussed with Dr. Sarmiento, Neurology, consult appreciated and followed. Subdural Hematoma post craniotomy with hematoma evacuation follow up neuro consult with Dr Sarmiento follow up repeat CT scan of head, showed mild increase in thickness. AFib rate controlled continue Digoxin 0.125mg PO daily HTN BP stable continue Metoprolol 50mg PO BID BS elevated DM2 continue Insulin ISS and ACHS
--- NOTE | 2017-05-16 12:59 | ED PDOC ---
HPI: Seizure Time Seen by Provider: 05/16/17 11:24 Chief Complaint (Nursing): Seizure Chief Complaint (Provider): Seizure History Per: Patient History/Exam Limitations: clinical condition Recent Seizure Activity Began: Just Before Arrival Length Of Seizures (Duration): Seconds Additional Complaint(s): 81 y/o male brought down from [address] [place] [address] due to witnessed seizure x2 this morning. Patient was initially transferred here from [facility] on 05/11 and had a right subdural hematoma that was evacuated on that date. Patient was on the rehab floor, when he had a tonic-clonic seizure lasting 10-20 seconds. Patient brought from the ER to be loaded with Keppra. Prior to transfer, patient had a CT scan and received Ativan. PMD: Flo Sarmiento Past Medical History Reviewed: Historical Data, Nursing Documentation, Vital Signs Vital Signs: Last Vital Signs Temp 98.0 F 05/16/17 11:13 Pulse 83 05/16/17 11:13 Resp 14 05/16/17 11:13 BP 96/62 L 05/16/17 11:13 Pulse Ox 92 L 05/16/17 13:18 - Medical History PMH: Arthritis, Atrial Fibrillation, Cardia Arrhythmia (Atrial Fibrillation), CHF, COPD, Diabetes, Gastrointestinal Ulcer, HTN, Hypercholesterolemia, Peripheral Edema Denies: Depression, HIV, Chronic Kidney Disease - Surgical History Surgical History: Denies: Pacemaker - Family History Family History: States: Unknown Family Hx - Social History Ex-Smoker (has not smoked in the last 12 months): Yes Alcohol: None Drugs: Denies - Immunization History Hx Tetanus Toxoid Vaccination: No Hx Influenza Vaccination: No Hx Pneumococcal Vaccination: No - Home Medications Home Medications: Ambulatory Orders Medication Instructions Recorded Insulin Lispro Mix 75/25 [HumaLOG 20 unit SC ACHS 05/03/16 Mix 75/25] Oxybutynin Chloride [Oxybutynin 5 mg PO Q8 05/03/16 Chloride ER] Pantoprazole [Protonix EC Tab] 40 mg PO 0600 05/03/16 Pregabalin [Lyrica] 75 mg PO DAILY 05/03/16 Metoprolol Tartrate [Lopressor] 50 mg PO BID 11/25/16 Digoxin [Lanoxin] 0.125 mg PO 1400 03/17/17 Furosemide [Lasix] 40 mg PO DAILY 03/17/17 Tamsulosin HCl [Flomax] 0.4 mg PO DAILY 03/17/17 Tramadol HCl [Ultram] 50 mg PO BID PRN 03/17/17 Acetaminophen [Tylenol 325mg tab] 650 mg PO Q4 PRN 05/14/17 Codeine [Codeine Sulfate] 30 mg PO Q4 05/14/17 Insulin Regular [HumuLIN R] See Protocol [facility] 05/14/17 - Allergies Allergies/Adverse Reactions: Allergies Allergy/AdvReac Type Severity Reaction Status Date / Time No Known Allergies Allergy Verified 05/14/17 14:25 Review of Systems ROS Statement: Except As Marked, All Systems Reviewed And Found Negative Constitutional: Negative for: Fever ENT: Negative for: Other (bit tongue) Genitourinary Male: Negative for: Incontinence Neurological: Positive for: Seizures. Negative for: Other (head injury) Physical Exam - Reviewed Nursing Documentation Reviewed: Yes Vital Signs Reviewed: Yes - Physical Exam Appears: Positive for: No Acute Distress Head Exam: Positive for: ATRAUMATIC, NORMOCEPHALIC (with bandaging and right craniotomy surgical site) Skin: Positive for: Normal Color, Warm, Dry Eye Exam: Positive for: EOMI, Normal appearance, PERRL Neck: Positive for: Normal, Painless ROM Cardiovascular/Chest: Positive for: Regular Rate, Rhythm. Negative for: Murmur Respiratory: Positive for: Normal Breath Sounds. Negative for: Accessory Muscle Use, Respiratory Distress Gastrointestinal/Abdominal: Positive for: Bowel Sounds (present), Soft. 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 Otherwise unremarkable) O2 Sat by Pulse Oximetry: 92 (RA) Pulse Ox Interpretation: Abnormal Medical Decision Making Medical Decision Making: Initial Impression: 81 y/o male s/p right subdural hematoma evacuation, now with left hemiparesis and new-onset seizures Initial Plan: * Blood work * Load with Larissa Ibrahim hospitalist 13:[address] Alissa Villeda, hospitalist on-call, patient admitted to tele obs. Scribe Attestation: Documented by Areli dEdy, acting as a scribe for Maggie Alarocn MD. Provider Scribe Attestation: All medical record entries made by the Scribe were at my direction and personally dictated by me. I have reviewed the chart and agree that the record accurately reflects my personal performance of the history, physical exam, medical decision making, and the department course for this patient. I have also personally directed, reviewed, and agree with the discharge instructions and disposition. Disposition - Patient ED Disposition Is Patient to be Admitted: Yes Counseled Patient/Family Regarding: Studies Performed, Diagnosis - Disposition Disposition Time: 13:04 Forms: [employer] ([employer]) - Pt Status Changed To: Hospital Disposition Of: Observation
[2017-05-16] MEDS: Insulin Lispro (humaLOG) 100 Units/ml Inj SC SCH ×2 (17:02→21:46)
[2017-05-16] MEDS: Digoxin 125 mcg (0.125 mg) Tab PO SCH (17:03)
[2017-05-16 17:04] VITALS: PULSE 78
--- NOTE | 2017-05-16 19:23 | CP.PCM.CON ---
History of Present Illness - History of Present Illness History of Present Illness: 81 yr old male who had a right subdural hematoma s/p evacuation, who was sent to rehab several days ago, and had a seizure last night, secondarily generalized in nature. He then had a second seizure this morning, with the same semiology, and we transferred him to the telemetry floor for IV medications. On my examination in the ER, the patient was able to name, repeat, and follow commands with resolving todds palsy. 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 All: nkda. on exam in Er after second seizure: aaoxperson and place. SPeech fluent. can name and repeat. Cn 2-12 normal. motor: slight drift left arm, and c d stripper is 4+5 but otherwise normal neurological exam gait: not tested. Past Patient History - Infectious Disease Hx of Infectious Diseases: None - Tetanus Immunizations Tetanus Immunization: Unknown - Past Social History Smoking Status: Former Smoker - CARDIAC Hx Cardiac Disorders: Yes - PULMONARY Hx Respiratory Disorders: Yes - NEUROLOGICAL Hx Neurological Disorder: No - HEENT Hx HEENT Problems: Yes - RENAL Hx Chronic Kidney Disease: No - ENDOCRINE/METABOLIC Hx Endocrine Disorders: Yes - HEMATOLOGICAL/ONCOLOGICAL Hx Blood Disorders: Yes - INTEGUMENTARY Hx Dermatological Problems: No - MUSCULOSKELETAL/RHEUMATOLOGICAL Hx Musculoskeletal Disorders: Yes - GASTROINTESTINAL Hx Gastrointestinal Disorders: Yes Hx Gastroesophageal Reflux: Yes - GENITOURINARY/GYNECOLOGICAL Hx Genitourinary Disorders: Yes - PSYCHIATRIC Hx Psychophysiologic Disorder: No - SURGICAL HISTORY Hx Surgeries: Yes Other/Comment: s/p Right subdural hematoma evacuation (05/11/2017 @ [facility]) - ANESTHESIA Hx Anesthesia: Yes Hx Anesthesia Reactions: No Hx Malignant Hyperthermia: No Meds Home Medications: Home Medication List Medication Instructions Recorded Confirmed Type Levetiracetam [Keppra] 750 mg PO Q12 #60 tab 05/17/17 Rx Allergies/Adverse Reactions: Allergies Allergy/AdvReac Type Severity Reaction Status Date / Time No Known Allergies Allergy Verified 05/14/17 14:25 - Medications Medications: Current Medications Codeine Sulfate (Codeine) 30 mg PO Q4 [facility] Last Admin: 05/16/17 17:04 Dose: 30 mg Digoxin (Digoxin) 0.125 mg PO 1400 [facility] Last Admin: 05/16/17 17:03 Dose: 0.125 mg Furosemide (Lasix) 40 mg PO DAILY [facility] Levetiracetam 750 mg/ Sodium (Chloride) 107.5 mls @ 215 mls/hr IVPB Q12 [facility] Insulin Human Lispro (Humalog) 0 units SC ACHS [facility] PRN Reason: Protocol Last Admin: 05/16/17 17:02 Dose: 4 units Metoprolol Tartrate (Lopressor) 50 mg PO BID@0900,2100 [facility] Oxybutynin Chloride (Ditropan Tab) 5 mg PO Q8 [facility] Last Admin: 05/16/17 17:02 Dose: 5 mg Pregabalin (Lyrica) 75 mg PO DAILY [facility] Tamsulosin HCl (Flomax) 0.4 mg PO DAILY [facility] Tramadol HCl (Ultram) 50 mg PO BID PRN PRN Reason: Pain, moderate (4-7) Results - Vital Signs Recent Vital Signs: Last Vital Signs Temp 98.2 F 05/16/17 16:00 Pulse 78 05/16/17 16:59 Resp 20 05/16/17 16:00 BP 144/64 05/16/17 16:00 Pulse Ox 100 05/16/17 16:00 - Labs Result Diagrams: 05/17/17 05:15 05/17/17 05:15 Labs: Laboratory Results - last 24 hr 05/16/17 05/16/17 05/16/17 11:37 13:48 16:48 POC Glucose (mg/dL) 393 H 391 H 342 H - Imaging and Cardiology CT scan - head Status: Image reviewed by me, Report reviewed by me Assessment & Plan - Assessment and Plan (Free Text) Assessment: 81 yr old male s/p subdural evacuation, who is now having seizures. I have started him on Keppra 1000 mg IV and should continue on 500 mg IV bid. Plan: 1. EEG am 2. Continue Keppra [address] jyotsna MD, DPN
[2017-05-17 06:06] LABS: HEMOGLOBIN 11.9 g/dL (12.0-18.0); MEAN CELL VOLUME 88.8 fl (80.0-94.0); MEAN CORPUSCULAR HEMOGLOBIN 29.3 pg (27.0-31.0); RBC 4.07 Mil/uL (4.40-5.90); RED CELL DISTRIBUTION WIDTH 16.3 % (11.5-14.5); WHITE BLOOD COUNT 9.7 K/uL (4.8-10.8)
[2017-05-17 06:22] LABS: CALCIUM 9.4 mg/dL (8.4-10.2)
--- NOTE | 2017-05-17 07:37 | CP.PCM.DIS ---
Provider - Provider Date of Admission: 05/16/17 12:22 Attending physician: Alissa Villeda DO Primary care physician: Dr. Alireza Russell Consults: Neurology consult Time Spent in preparation of Discharge (in minutes): 15 Hospital Course - Lab Results Lab Results: Most Recent Lab Values WBC 9.7 K/uL (4.8-10.8) 05/17/17 05:15 RBC 4.07 Mil/uL (4.40-5.90) L 05/17/17 05:15 Hgb 11.9 g/dL (12.0-18.0) L 05/17/17 05:15 Hct 36.2 % (35.0-51.0) 05/17/17 05:15 MCV 88.8 fl (80.0-94.0) 05/17/17 05:15 MCH 29.3 pg (27.0-31.0) 05/17/17 05:15 MCHC 33.0 g/dL (33.0-37.0) 05/17/17 05:15 RDW 16.3 % (11.5-14.5) H 05/17/17 05:15 Plt Count 585 K/uL (130-400) H 05/17/17 05:15 Sodium 138 mmol/l (132-148) 05/17/17 05:15 Potassium 4.8 MMOL/L (3.6-5.0) 05/17/17 05:15 Chloride 95 mmol/L (98-107) L 05/17/17 05:15 Carbon Dioxide 31 mmol/L (22-30) H 05/17/17 05:15 Anion Gap 17 (10-20) 05/17/17 05:15 BUN 32 mg/dl (9-20) H 05/17/17 05:15 Creatinine 1.8 mg/dl (0.8-1.5) H 05/17/17 05:15 Est GFR ( Amer) 44 05/17/17 05:15 Est GFR (Non-Af Amer) 36 05/17/17 05:15 POC Glucose (mg/dL) 307 mg/dL (65-110) H 05/17/17 06:20 Random Glucose 324 mg/dL (75-110) H 05/17/17 05:15 Calcium 9.4 mg/dL (8.4-10.2) 05/17/17 05:15 - Hospital Course Hospital Course: 81 yo male with history of AFib, DM2, HTN and CHF was admitted at [facility] because of left sided weakness and left upper extremity tremor. CT scan of the head showed Acute Right Subdural Hematoma with mass effect and midline shift. Neurosurgical consult were made and patient was sent to OR for right frontal craniotomy and evacuation of hematoma. Patient was sent to [facility] Acute Rehab for continuation of therapy. While in acute rehab, patient had 2 episodes of focal seizures today. Patient was evaluated by Neuro team, and subsequently transferred to acute care for IV Keppra and close monitoring. Repeat CT Head showed mild increase in thickness of R frontoparietal subdural hematoma. Discussed with Neuro, patient to be transferred back to acute rehab 1.Focal Seizures loaded with IV keppra Will continue 750 mg po Q12 F/u EEG Neurology consulted Transfer back to acute rehab for Physical therapy 2.Subdural Hematoma post craniotomy with hematoma evacuation repeat CT scan of head, showed mild increase in thickness of right frontoparietal hematoma Continue Keppra for seizre prevention D/c to acute rehab for PT Follow up with neuro . 3.AFib rate controlled continue Digoxin 0.125mg PO daily no anticoagulation due to recent subdural hematoma 4.HTN BP stable continue Metoprolol 50mg PO BID BS elevated 5.DM2 continue Insulin ISS and ACHS 6. BPH d/c Floley continue Flomax and Proscar 7. CKD stage III stable 8. DVt prophylaxis SCd Discharge Exam - Head Exam Head Exam: NORMOCEPHALIC (right frontoparietal dressing in place ) - Eye Exam Eye Exam: EOMI, Normal appearance, PERRL Pupil Exam: NORMAL ACCOMODATION - ENT Exam ENT Exam: Mucous Membranes Moist, Normal Exam - Neck Exam Neck exam: Full Rom, Normal Inspection - Respiratory Exam Respiratory Exam: Clear to PA & Lateral, NORMAL BREATHING PATTERN. absent: Rales, Rhonchi, Wheezes - Cardiovascular Exam Cardiovascular Exam: Irregular Rhythm, +S1, +S2. absent: JVD - GI/Abdominal Exam GI & Abdominal Exam: Normal Bowel Sounds, Soft. absent: Distended, Guarding, Rebound, Tenderness - Rectal Exam Rectal Exam: Deferred - Extremities Exam Extremities exam: normal capillary refill, normal inspection, pedal pulses present - Back Exam Back exam: NORMAL INSPECTION - Neurological Exam Neurological exam: Alert, CN II-XII Intact Additional comments: left upper extremity 4/5 - Psychiatric Exam Psychiatric exam: Normal Affect - Skin Skin Exam: Dry, Warm Discharge Plan - Discharge Medications Prescriptions: Levetiracetam [Keppra] 750 mg PO Q12 #60 tab - Follow Up Plan Condition: STABLE Disposition: REHAB FACILITY/REHAB UNIT Patient education suggested?: Yes
--- NOTE | 2017-05-17 10:07 | CP.PCM.PN ---
Subjective - Date & Time of Evaluation Date of Evaluation: 05/17/17 Time of Evaluation: 10:05 - Subjective Subjective: Mr. Ritter was seen and examined at the bedside. He is alert, oriented to person and place, but not time. He denies any headache, dizziness, lightheadedness, seizure-like activity. He is able to feed himself without any assistance. He further claims of his left arm feeling better today in comparison from yesterday.He is able to follow simple commands. He had episode of confusion yesterday on 1:1 sitter for patient safety. There was no untoward events overnight. Objective - Vital Signs/Intake and Output Vital Signs (last 24 hours): Temp Pulse Resp BP Pulse Ox 97.4 F L 75 18 107/66 95 05/17/17 08:00 05/17/17 08:00 05/17/17 08:00 05/17/17 08:00 05/17/17 08:00 Intake and Output: 05/17/17 05/17/17 06:59 18:59 Output Total 1200 Balance -1200 - Medications Medications: Current Medications Codeine Sulfate (Codeine) 30 mg PO Q4 [facility] Last Admin: 05/17/17 05:14 Dose: Not Given Digoxin (Digoxin) 0.125 mg PO 1400 [facility] Last Admin: 05/16/17 17:03 Dose: 0.125 mg Furosemide (Lasix) 40 mg PO DAILY [facility] Levetiracetam 750 mg/ Sodium (Chloride) 107.5 mls @ 215 mls/hr IVPB Q12 [facility] Last Admin: 05/16/17 21:29 Dose: 215 mls/hr Insulin Human Lispro (Humalog) 0 units SC ACHS [facility] PRN Reason: Protocol Last Admin: 05/16/17 21:46 Dose: Not Given Metoprolol Tartrate (Lopressor) 50 mg PO BID@0900,2100 [facility] Last Admin: 05/16/17 21:30 Dose: 50 mg Oxybutynin Chloride (Ditropan Tab) 5 mg PO Q8 [facility] Last Admin: 05/17/17 01:13 Dose: 5 mg Pregabalin (Lyrica) 75 mg PO DAILY [facility] Tamsulosin HCl (Flomax) 0.4 mg PO DAILY [facility] Tramadol HCl (Ultram) 50 mg PO BID PRN PRN Reason: Pain, moderate (4-7) - Labs Labs: 05/17/17 05:15 05/17/17 05:15 - Constitutional Appears: No Acute Distress - Head Exam Head Exam: NORMAL INSPECTION - Neurological Exam Neurological Exam: Alert, Awake Neuro motor strength exam: Left Upper Extremity: 3, Right Upper Extremity: 5, Left Lower Extremity: 3, Right Lower Extremity: 5 Additional comments: He is alert, oriented x2, follows commands, Sensation is intact. Assessment and Plan (1) Seizures Assessment & Plan: Casediscussed with Dr. Sarmiento, continue all current medical, physical, occupation, and speech therapies. Pending EEG, If no seizure episode may discharge patient to acute rehab. Status: Acute
[2017-05-17] MEDS: Insulin Lispro (humaLOG) 100 Units/ml Inj SC SCH ×2 (10:46→14:03)
[2017-05-17 13:05] VITALS: BP 120/71; PULSE 74; RESP 20; TEMP 97.3; O2SAT 96
[2017-05-17] MEDS: Digoxin 125 mcg (0.125 mg) Tab PO SCH (14:04)
== END 2017-05-17 14:54 ==
LOC: H.ER 11:09 → INTOOBSV 12:22 → H.ERHOLD 12:22 → H.TEL 14:55
PROVIDERS: ADMIT Student in an Organized Health Care Education/Training Program; ATTEND Student in an Organized Health Care Education/Training Program
DX: G40.89 Other seizures (principal); N18.3 Chronic kidney disease, stage 3 (moderate); I13.0 Hypertensive heart and chronic kidney disease with heart failure and stage 1 through stage 4 chronic kidney disease, or unspecified chronic kidney disease; I50.9 Heart failure, unspecified; I48.91 Unspecified atrial fibrillation; I69.154 Hemiplegia and hemiparesis following nontraumatic intracerebral hemorrhage affecting left non-dominant side; E11.22 Type 2 diabetes mellitus with diabetic chronic kidney disease; J44.9 Chronic obstructive pulmonary disease, unspecified; K21.9 Gastro-esophageal reflux disease without esophagitis; E78.00 Pure hypercholesterolemia, unspecified; N40.0 Benign prostatic hyperplasia without lower urinary tract symptoms; Z87.11 Personal history of peptic ulcer disease; Z87.891 Personal history of nicotine dependence
CPT/HCPCS: 36415; 80048; 80299; 82948; 85027; 92526; 92610; 95816; 96365; 97162; 97165; 99285; G0378; G8978; G8979; G8987; G8988; G8996; G8997; G8998; J1953